=== PATIENT | female | born 1960 | race Caucasian/White ===

== ENCOUNTER → 2017-12-15 07:43 | Outpatient (CLI) | payer OTHER, SELFPAY ==
[2017-12-15 08:23] LABS: Absolute Lymphocyte Count 4.13 X10^3/ul (0.83-4.51); Basophil# 0.05 X10^3/uL; Basophil% 0.6 % (0-1); Eosinophil# 0.45 X10^3/uL; Eosinophils% 5.5 % (0-5); Hematocrit 37.5 % (37-47); Hemoglobin 11.9 g/dl (12.0-15.0); Lymphocyte # 4.13 X10^3/ul (4.0); Lymphocyte % 50.8 % (19-41); Mean Corp Hgb Conc 31.7 g/gl (32-36); Mean Corpuscular Hgb 27.9 pg (27.0-32.0); Mean Corpuscular Volume 87.8 fL (81-99); Mean Platelet Vol. 11.6 fl (6.2-12.0); Monocyte# 0.46 X10^3/uL; Monocyte% 5.7 % (0-10); Neutrophil # 3.03 X10^3/uL (2.7-7.7); Neutrophil % 37.3 % (47-70); Platelet Count 202 K/mm3 (150-450); RBC Distribution Width CV 14.7 % (11.6-14.6); RBC Distribution Width SD 47.1 fl (35.1-43.9); Red Blood Count 4.27 M/mm3 (4.2-5.4); White Blood Count 8.1 K/mm3 (4.4-11.0)
[2017-12-15 08:24] LABS: POSITIVE COUNT NO; POSITIVE DIFFERENTIAL NO; POSITIVE MORPHOLOGY NO
[2017-12-15 08:56] LABS: AST(SGOT) 17 U/L (15-37); Alanine Aminotransfer ALT/SGPT 20 U/L (13-56); Albumin, Serum 3.5 g/dL (3.2-5.0); Alkaline Phosphatase 98 U/L (45-117); Anion Gap 7 (5-15); BUN 21 mg/dL (7-18); BUN/Creat Ratio 22.4 RATIO (10-20); Calcium,Total 8.6 mg/dL (8.5-10.1); Chloride 108 mmol/L (98-107); Cholesterol 230 mg/dL (200); Creatinine, Serum 0.94 mg/dL (0.55-1.02); EST Glomerular Filtration Rate 65 mL/min (>60); Est Glom Filt Rate - Afr Amer 78 mL/min (>60); Globulin 3.6 g/dL (2.2-4.2); Glucose 87 mg/dL (74-106); High Density Lipoprotein 64 mg/dL; Protein, Total 7.1 g/dL (6.4-8.2); Sodium Level 142 mmol/L (136-145); Thyroid Stim Hormone (TSH) 3.35 uIU/mL (0.358-3.74); Triglycerides 79 mg/dL; Very Low Density Lipoprotein 16 mg/dL (5-40)
[2017-12-17 09:49] LABS: Vitamin D,25 Hydroxy 28.3 ng/mL (29.95-100.01)
== END ==
PROVIDERS: Family Provider Family Medicine; PCP Family Medicine; Visit Provider Family Medicine
DX: E55.9 Vitamin D deficiency, unspecified (principal); E03.8 Other specified hypothyroidism; I10 Essential (primary) hypertension; E78.5 Hyperlipidemia, unspecified
CPT/HCPCS: 36415; 80053; 80061; 82306; 84443; 85025

== ENCOUNTER → 2018-04-13 09:06 | Outpatient (CLI) | payer OTHER, SELFPAY ==
[2018-04-13 09:44] LABS: Absolute Lymphocyte Count 4.48 X10^3/ul (0.83-4.51); Basophil# 0.05 X10^3/uL; Basophil% 0.5 % (0-1); Eosinophil# 0.57 X10^3/uL; Hematocrit 39.1 % (37-47); Hemoglobin 12.4 g/dl (12.0-15.0); Lymphocyte # 4.48 X10^3/ul (4.0); Mean Corp Hgb Conc 31.7 g/gl (32-36); Mean Corpuscular Volume 88.3 fL (81-99); Mean Platelet Vol. 11.6 fl (6.2-12.0); Monocyte# 0.43 X10^3/uL; Monocyte% 4.5 % (0-10); Neutrophil % 41.9 % (47-70); POSITIVE COUNT NO; POSITIVE DIFFERENTIAL NO; POSITIVE MORPHOLOGY NO; Platelet Count 203 K/mm3 (150-450); RBC Distribution Width CV 14.6 % (11.6-14.6); RBC Distribution Width SD 47.1 fl (35.1-43.9); Red Blood Count 4.43 M/mm3 (4.2-5.4); White Blood Count 9.5 K/mm3 (4.4-11.0)
[2018-04-13 10:05] LABS: AST(SGOT) 13 U/L (15-37); Alanine Aminotransfer ALT/SGPT 18 U/L (13-56); Albumin, Serum 3.7 g/dL (3.2-5.0); Alkaline Phosphatase 98 U/L (45-117); Anion Gap 5 (5-15); BUN 17 mg/dL (7-18); BUN/Creat Ratio 18.2 RATIO (10-20); Calcium,Total 8.9 mg/dL (8.5-10.1); Chloride 111 mmol/L (98-107); Cholesterol 219 mg/dL (200); Creatinine, Serum 0.93 mg/dL (0.55-1.02); EST Glomerular Filtration Rate 65 mL/min (>60); Est Glom Filt Rate - Afr Amer 79 mL/min (>60); Globulin 3.7 g/dL (2.2-4.2); Glucose 84 mg/dL (74-106); High Density Lipoprotein 61 mg/dL; Potassium 4.4 mmol/L (3.5-5.1); Protein, Total 7.4 g/dL (6.4-8.2); Sodium Level 141 mmol/L (136-145); Thyroid Stim Hormone (TSH) 1.68 uIU/mL (0.358-3.74); Triglycerides 103 mg/dL; Very Low Density Lipoprotein 21 mg/dL (5-40)
[2018-04-15 09:29] LABS: Vitamin D,25 Hydroxy 26.5 ng/mL (29.95-100.01)
== END ==
PROVIDERS: Family Provider Family Medicine; PCP Family Medicine; Visit Provider Family Medicine
DX: E55.9 Vitamin D deficiency, unspecified (principal); E03.8 Other specified hypothyroidism; I10 Essential (primary) hypertension; E78.5 Hyperlipidemia, unspecified
CPT/HCPCS: 36415; 80053; 80061; 82306; 84443; 85025

== ENCOUNTER → 2018-04-17 10:00 | Outpatient (CLI) | payer OTHER, SELFPAY ==
[2018-04-22 12:07] LABS: Chlamydia By Nucleic Acid AMP Negative (Negative)
[2018-04-23 09:04] LABS: Gonococcus By Nucleic Acid AMP Negative (Negative); HPV Reflexed? NOT INDICATED
== END ==
PROVIDERS: Family Provider Family Medicine; PCP Family Medicine; Visit Provider Family Medicine
DX: Z12.4 Encounter for screening for malignant neoplasm of cervix (principal)
CPT/HCPCS: 87491; 87591; 88175; G0145

== ENCOUNTER → 2018-05-15 14:57 | Outpatient (CLI) | payer OTHER, SELFPAY | PROVIDERS: Family Provider Family Medicine; PCP Family Medicine; Visit Provider Family Medicine | DX: Z12.31 Encounter for screening mammogram for malignant neoplasm of breast (principal) | CPT/HCPCS: 77063; 77067 ==

== ENCOUNTER → 2018-07-10 10:43 | Outpatient (CLI) | payer OTHER, SELFPAY ==
--- NOTE | 2018-07-10 10:46 | RAD_ITS ---
STUDY: X-RAY - LEFT FOOT CLINICAL: Female, 57 years old. Left foot pain TECHNIQUE: 3 view(s) of the foot. Weight-bearing COMPARISON: None. FINDINGS: Normal talus, calcaneus, and tarsal bones. Normal visualized subtalar, talonavicular, calcaneocuboid, tarsal and tarsometatarsal articulations. Normal metatarsi. Normal metatarsophalangeal joint of the great toe. Normal tibial and fibular sesamoid bones. Normal interphalangeal joint of the great toe. Normal phalanges of the great toe. Normal second through fifth metatarsophalangeal joints. Normal interphalangeal joints and phalanges of the lesser toes. Soft tissue swelling dorsally RAD/Foot min 3 Views IMPRESSION: Soft tissue swelling without acute osseous findings Electronically Signed: Reyes Corbin DO at 11:11 EDT Tel , Service support ,
== END ==
PROVIDERS: Family Provider Family Medicine; PCP Family Medicine; Referring Provider Family Medicine; Visit Provider Family Medicine
DX: M79.672 Pain in left foot (principal)
CPT/HCPCS: 73630

== ENCOUNTER → 2018-08-03 07:35 | Outpatient (CLI) | payer OTHER, SELFPAY ==
[2018-08-03 09:04] LABS: Absolute Lymphocyte Count 4.12 X10^3/ul (0.83-4.51); Absolute Neutrophil Count 3.6 X10^3/uL (2.0-7.7); Basophil# 0.05 X10^3/uL; Basophil% 0.6 % (0-1); Eosinophil# 0.58 X10^3/uL; Eosinophils% 6.6 % (0-5); Hemoglobin 12.2 g/dl (12.0-15.0); Lymphocyte # 4.12 X10^3/ul (4.0); Lymphocyte % 46.7 % (19-41); Mean Corp Hgb Conc 31.3 g/gl (32-36); Mean Corpuscular Hgb 28.3 pg (27.0-32.0); Mean Corpuscular Volume 90.5 fL (81-99); Mean Platelet Vol. 11.4 fl (6.2-12.0); Monocyte# 0.51 X10^3/uL; Monocyte% 5.8 % (0-10); Neutrophil # 3.56 X10^3/uL (2.7-7.7); Neutrophil % 40.2 % (47-70); POSITIVE COUNT NO; POSITIVE DIFFERENTIAL NO; POSITIVE MORPHOLOGY NO; Platelet Count 198 K/mm3 (150-450); RBC Distribution Width CV 14.6 % (11.6-14.6); RBC Distribution Width SD 48.3 fl (35.1-43.9); Red Blood Count 4.31 M/mm3 (4.2-5.4); White Blood Count 8.8 K/mm3 (4.4-11.0)
[2018-08-03 09:42] LABS: Anion Gap 7 (5-15); BUN 21 mg/dL (7-18); BUN/Creat Ratio 26.8 RATIO (10-20); Chloride 111 mmol/L (98-107); Creatinine, Serum 0.78 mg/dL (0.55-1.02); EST Glomerular Filtration Rate 80 mL/min (>60); Est Glom Filt Rate - Afr Amer 96 mL/min (>60); Glucose 88 mg/dL (74-106); Potassium 4.3 mmol/L (3.5-5.1); Sodium Level 142 mmol/L (136-145); T4 Free Direct 0.88 ng/dL (0.76-1.46)
[2018-08-03 12:54] LABS: Vitamin D,25 Hydroxy 32.9 ng/mL (29.95-100.01)
== END ==
PROVIDERS: Family Provider Family Medicine; PCP Family Medicine; Referring Provider Family Medicine; Visit Provider Family Medicine
DX: I10 Essential (primary) hypertension (principal); E03.8 Other specified hypothyroidism; E55.9 Vitamin D deficiency, unspecified
CPT/HCPCS: 36415; 80048; 82306; 84439; 84443; 85025

== ENCOUNTER → 2020-03-12 10:16 | Outpatient (CLI) | payer MEDICARE, SELFPAY ==
[2020-03-12 09:26] VITALS: BMI 40.7
[2020-03-12 12:16] LABS: Absolute Lymphocyte Count 4.52 X10^3/uL (0.83-4.51); Absolute Neutrophil Count 4.1 X10^3/uL (2.0-7.7); Basophil# 0.09 X10^3/uL; Basophil% 0.9 % (0-1); Eosinophil# 0.58 X10^3/uL; Eosinophils% 5.8 % (0-5); Hematocrit 38.7 % (37-47); Lymphocyte # 4.52 X10^3/ul (4.0); Mean Corpuscular Hgb 28.4 pg (27.0-32.0); Mean Corpuscular Volume 91.7 fL (81-99); Mean Platelet Vol. 11.4 fl (6.2-12.0); Monocyte# 0.66 X10^3/uL; Monocyte% 6.6 % (0-10); NRBC Flagged by Analyzer 0.6 % (0-5); Neutrophil # 4.14 X10^3/uL (2.7-7.7); Neutrophil % 41.1 % (47-70); Platelet Count 237 K/mm3 (150-450); RBC Distribution Width CV 15.1 % (11.6-14.6); RBC Distribution Width SD 50.8 fl (35.1-43.9); Red Blood Count 4.22 M/mm3 (4.2-5.4); White Blood Count 10.1 K/mm3 (4.4-11.0)
[2020-03-12 13:01] LABS: ALB/GLOB Ratio 0.9 RATIO (0.9-2.4); AST(SGOT) 14 U/L (15-37); Alanine Aminotransfer ALT/SGPT 23 U/L (13-56); Albumin, Serum 3.6 g/dL (3.2-5.0); Alkaline Phosphatase 124 U/L (45-117); Anion Gap 7 (5-15); BUN 22 mg/dL (7-18); BUN/Creat Ratio 20.4 RATIO (10-20); Calcium,Total 9.7 mg/dL (8.5-10.1); Chloride 109 mmol/L (98-107); Cholesterol 266 mg/dL (200); Creatinine, Serum 1.08 mg/dL (0.55-1.02); EST Glomerular Filtration Rate 55 mL/min (>60); Est Glom Filt Rate - Afr Amer 66 mL/min (>60); Globulin 3.9 g/dL (2.2-4.2); Glucose 96 mg/dL (74-106); High Density Lipoprotein 61 mg/dL; Potassium 4.3 mmol/L (3.5-5.1); Protein, Total 7.5 g/dL (6.4-8.2); Sodium Level 142 mmol/L (136-145); Triglycerides 147 mg/dL; Very Low Density Lipoprotein 29 mg/dL (5-40)
[2020-03-12 14:00] LABS: Thyroid Stim Hormone (TSH) 1.69 uIU/mL (0.358-3.74)
== END ==
PROVIDERS: PCP Internal Medicine; Referring Provider Internal Medicine; Visit Provider Internal Medicine
DX: E03.9 Hypothyroidism, unspecified (principal); I10 Essential (primary) hypertension; E78.5 Hyperlipidemia, unspecified
CPT/HCPCS: 36415; 80053; 80061; 84443; 85025

== ENCOUNTER → 2020-04-26 07:32 | Outpatient (CLI) | payer MEDICARE, SELFPAY ==
[2020-03-12 09:26] VITALS: BMI 40.7
--- NOTE | 2020-04-26 07:33 | BI_ITS ---
MAMMOGRAPHY - BILATERAL SCREENING REASON FOR EXAM: Female, 59 years old. Routine annual screening examination. PERTINENT HISTORY: Non-contributory. TECHNIQUE: Digital bilateral breast gordo (3D mammographic acquisition) in the CC and MLO projections. 2-D mediolateral oblique (MLO) and craniocaudad (CC) views of both breasts were obtained. CAD: Full Field Digital Mammography with Computer Added Detection was performed. COMPARISON: Comparison is made with prior study dated 05/15/2018. FINDINGS: Breast Composition: There are scattered areas of fibroglandular density. There are no dominant masses or suspicious calcifications. Stable small benign appearing bilateral axillary lymph nodes. No other significant abnormalities are identified. There has been no significant change since the prior study. BI/SCREEN MAMM (CAD) W/GORDO BILAT IMPRESSION: Stable bilateral screening mammogram. Yearly follow-up mammogram recommended. (A) ASSESSMENT CATEGORY: BIRADS Category 2: Benign. A letter regarding these results will be sent to the patient by the facility within 30 days. Approximately 10% of breast cancers are not detected by mammography. A normal mammogram should not delay biopsy of a clinically suspicious abnormality. [id number] Electronically Signed: Harshad Goodson, at 8:58 EDT , Service support ,
== END ==
PROVIDERS: PCP Internal Medicine; Referring Provider Internal Medicine; Visit Provider Internal Medicine
DX: Z12.31 Encounter for screening mammogram for malignant neoplasm of breast (principal)
CPT/HCPCS: 77063; 77067

== ENCOUNTER → 2020-06-04 09:04 | Outpatient (CLI) | payer MEDICARE, SELFPAY ==
[2020-03-12 09:26] VITALS: BMI 40.7
[2020-06-04 13:30] LABS: AST(SGOT) 16 U/L (15-37); Alanine Aminotransfer ALT/SGPT 24 U/L (13-56); Albumin, Serum 3.7 g/dL (3.2-5.0); Alkaline Phosphatase 121 U/L (45-117); Anion Gap 4 (5-15); BUN 22 mg/dL (7-18); Calcium,Total 9.2 mg/dL (8.5-10.1); Chloride 110 mmol/L (98-107); EST Glomerular Filtration Rate 54 mL/min (>60); Est Glom Filt Rate - Afr Amer 65 mL/min (>60); Globulin 3.6 g/dL (2.2-4.2); Glucose 84 mg/dL (74-106); Potassium 4.7 mmol/L (3.5-5.1); Protein, Total 7.3 g/dL (6.4-8.2); Sodium Level 141 mmol/L (136-145)
== END ==
PROVIDERS: PCP Internal Medicine; Referring Provider Internal Medicine; Visit Provider Internal Medicine
DX: E78.5 Hyperlipidemia, unspecified (principal)
CPT/HCPCS: 36415; 80053

== ENCOUNTER → 2020-06-24 08:27 | Outpatient (CLI) | payer MEDICARE, SELFPAY ==
[2020-06-18 08:42] VITALS: BMI 40.7
--- NOTE | 2020-06-24 08:30 | BD_ITS ---
STUDY: DUAL ENERGY X-RAY ABSORPTIOMETRY / DXA REASON FOR EXAM: Female, 59 years old. Unsure of destini age. Pat is 283.6# and 67.5 and quot; a loss of 1.5 and quot; per pat. Past hx of smoking. Past hx of taking IV drips for MS. Takes levothyroxin. Grandmother had osteo. TECHNIQUE: Bone Mineral Density (BMD) measurements of lumbar spine and bilateral hips were obtained. COMPARISON: None. FINDINGS: Lumbar Spine (L1-L4): g/cm2 (1.119) / T-score (-0.5) / Z-score (0.8) Findings are suggestive of normal bone density with a low fracture risk. Left Femur Total: g/cm2 (0.920) / T-score (-0.7) / Z-score (0.3) Left Femoral Neck: g/cm2 (0.785) / T-score (-1.8) / Z-score (-0.5) Right Femur Total: g/cm2 (0.898) / T-score (-0.9) / Z-score (0.1) Right Femoral Neck: g/cm2 (0.776) / T-score (-1.9) / Z-score (0.6) BD/Dexa Bone Density Study IMPRESSION: The patient is considered osteopenic as outlined below according to World Pato Organization (WHO) criteria with a moderate fracture risk. Reference Information: The T-score is the number of standard deviations above or below the standard which is normal for young adults at their peak bone mineral density. The World Health Organization (WHO) interprets the T-scores as follows: Above -1 Normal bone density Between -1 and -2.5 Osteopenia Equal to / or below -2.5 Osteoporosis As a practical clinical guideline, osteopenia may be graded as follows: Mild -1 through -1.5 Moderate -1.6 through -2.0 Severe -2.1 through -2.4 The Z-score is the number of standard deviations above or below age-matched controls. A Z-score of less than -1.5 would be considered abnormal. References: 1. NIH Osteoporosis and Related Bone Diseases http://www.osteo.org 2. International Society for Clinical Densitometry http://www.iscd.org 3. National Osteoporosis Foundation http://www.nof.org Electronically Signed: Harshad Goodson, at 11:05 EDT , Service support ,
== END ==
PROVIDERS: PCP Internal Medicine; Referring Provider Internal Medicine; Visit Provider Internal Medicine
DX: Z78.0 Asymptomatic menopausal state (principal)
CPT/HCPCS: 77080

== ENCOUNTER → 2020-09-20 10:14 | Outpatient (CLI) | payer MEDICARE, SELFPAY ==
[2020-09-20 12:33] LABS: AST(SGOT) 16 U/L (15-37); Alanine Aminotransfer ALT/SGPT 28 U/L (13-56); Albumin, Serum 3.6 g/dL (3.2-5.0); Alkaline Phosphatase 126 U/L (45-117); Anion Gap 5 (5-15); BUN 20 mg/dL (7-18); BUN/Creat Ratio 18.3 RATIO (10-20); Calcium,Total 9.2 mg/dL (8.5-10.1); Chloride 111 mmol/L (98-107); Creatinine, Serum 1.09 mg/dL (0.55-1.02); EST Glomerular Filtration Rate 54 mL/min (>60); Est Glom Filt Rate - Afr Amer 65 mL/min (>60); Globulin 3.7 g/dL (2.2-4.2); Glucose 90 mg/dL (74-106); Potassium 3.9 mmol/L (3.5-5.1); Protein, Total 7.3 g/dL (6.4-8.2); Sodium Level 141 mmol/L (136-145)
== END ==
PROVIDERS: PCP Internal Medicine; Referring Provider Internal Medicine; Visit Provider Internal Medicine
DX: E78.5 Hyperlipidemia, unspecified (principal)
CPT/HCPCS: 36415; 80053

== ENCOUNTER 2020-12-03 08:12 | Outpatient (RCR) | payer MEDICARE, SELFPAY ==
[2020-12-03] MEDS: COVID-19 VACC, MRNA(PFIZER)/PF 30 MCG/0.3 ML SYRINGE IM (13:13)
[2020-12-24] MEDS: COVID-19 VACC, MRNA(PFIZER)/PF 30 MCG/0.3 ML SYRINGE IM (13:12)
== END 2021-03-01 23:59 ==
LOC: IMMUN 08:12
PROVIDERS: PCP Internal Medicine; Visit Provider Family Medicine
DX: Z23 Encounter for immunization (principal)
CPT/HCPCS: 0001A; 0002A; 91300

== ENCOUNTER → 2021-02-02 13:39 | Outpatient (CLI) | payer MEDICARE, SELFPAY ==
[2020-12-20 08:29] VITALS: BMI 45.8
[2021-02-02 15:19] LABS: Absolute Lymphocyte Count 2.34 X10^3/uL (0.83-4.51); Absolute Neutrophil Count 3.9 X10^3/uL (2.0-7.7); Basophil# 0.07 X10^3/uL; Eosinophils% 4.2 % (0-5); Hematocrit 40.2 % (37-47); Lymphocyte # 2.34 X10^3/ul (0.83-4.51); Mean Corp Hgb Conc 29.9 g/dL (32-36); Mean Corpuscular Volume 90.5 fL (81-99); Mean Platelet Vol. 11.9 fl (6.2-12.0); Monocyte# 0.48 X10^3/uL; Monocyte% 6.8 % (0-10); NRBC Flagged by Analyzer 0 % (0-5); Neutrophil # 3.89 X10^3/uL (2.7-7.7); Neutrophil % 54.7 % (47-70); Platelet Count 215 K/mm3 (150-450); RBC Distribution Width CV 15.9 % (11.6-14.6); RBC Distribution Width SD 52.2 fl (35.1-43.9); Red Blood Count 4.44 M/mm3 (4.2-5.4); White Blood Count 7.1 K/mm3 (4.4-11.0)
[2021-02-02 15:42] LABS: ALB/GLOB Ratio 1.1 RATIO (0.9-2.4); AST(SGOT) 16 U/L (15-37); Alanine Aminotransfer ALT/SGPT 27 U/L (13-56); Alkaline Phosphatase 101 U/L (45-117); Anion Gap 3 (5-15); BUN 29 mg/dL (7-18); BUN/Creat Ratio 21.8 RATIO (10-20); Calcium,Total 9.4 mg/dL (8.5-10.1); Chloride 106 mmol/L (98-107); Creatinine, Serum 1.33 mg/dL (0.55-1.02); EST Glomerular Filtration Rate 43 mL/min (>60); Est Glom Filt Rate - Afr Amer 52 mL/min (>60); Globulin 3.8 g/dL (2.2-4.2); Glucose 90 mg/dL (74-106); Potassium 4.4 mmol/L (3.5-5.1); Protein, Total 7.8 g/dL (6.4-8.2); Sodium Level 138 mmol/L (136-145)
== END ==
PROVIDERS: PCP Internal Medicine
DX: Z79.899 Other long term (current) drug therapy (principal)
CPT/HCPCS: 36415; 80053; 85025

== ENCOUNTER → 2021-03-21 10:28 | Outpatient (CLI) | payer MEDICARE, SELFPAY ==
[2021-03-21 10:01] VITALS: BMI 45.8
[2021-03-21 12:21] LABS: Cholesterol 199 mg/dL (200); High Density Lipoprotein 74 mg/dL; Triglycerides 100 mg/dL; Very Low Density Lipoprotein 20 mg/dL (5-40)
== END ==
PROVIDERS: PCP Internal Medicine; Referring Provider Physician Assistant; Visit Provider Physician Assistant
DX: D64.9 Anemia, unspecified (principal); E78.5 Hyperlipidemia, unspecified; E03.9 Hypothyroidism, unspecified; E66.01 Morbid (severe) obesity due to excess calories; Z68.42 Body mass index [BMI] 45.0-49.9, adult
CPT/HCPCS: 36415; 80061; 84443

== ENCOUNTER → 2021-06-15 16:14 | Outpatient (CLI) | payer MEDICARE, SELFPAY ==
[2021-06-15 18:02] LABS: Thyroid Stim Hormone (TSH) 7.03 uIU/mL (0.358-3.74)
== END ==
PROVIDERS: PCP Internal Medicine; Referring Provider Physician Assistant; Visit Provider Physician Assistant
DX: E03.9 Hypothyroidism, unspecified (principal)
CPT/HCPCS: 36415; 84443

== ENCOUNTER → 2021-09-09 11:52 | Outpatient (CLI) | payer MEDICARE, SELFPAY ==
[2021-09-09 15:38] LABS: Anion Gap 5 (5-15); BUN 22 mg/dL (7-18); BUN/Creat Ratio 20.8 RATIO (10-20); Calcium,Total 8.8 mg/dL (8.5-10.1); Chloride 111 mmol/L (98-107); Creatinine, Serum 1.06 mg/dL (0.55-1.02); EST Glomerular Filtration Rate 56 mL/min (>60); Est Glom Filt Rate - Afr Amer 67 mL/min (>60); Glucose 97 mg/dL (74-106); Sodium Level 140 mmol/L (136-145)
[2021-09-09 15:54] LABS: Thyroid Stim Hormone (TSH) 3.66 uIU/mL (0.358-3.74)
== END ==
PROVIDERS: Physician Assistant; PCP Internal Medicine; Visit Provider Internal Medicine
DX: E03.9 Hypothyroidism, unspecified (principal); N18.30 Chronic kidney disease, stage 3 unspecified
CPT/HCPCS: 36415; 80048; 84443

== ENCOUNTER 2021-12-19 08:29 | Outpatient (CLI) | payer MEDICARE, SELFPAY ==
[2021-12-19 12:12] LABS: Absolute Lymphocyte Count 0.68 X10^3/uL (0.83-4.51); Absolute Neutrophil Count 2.5 X10^3/uL (2.0-7.7); Basophil# 0.03 X10^3/uL; Basophil% 0.8 % (0-1); Eosinophil# 0.23 X10^3/uL; Eosinophils% 6.1 % (0-5); Hematocrit 35.8 % (37-47); Hemoglobin 11.2 g/dL (12.0-15.0); Lymphocyte # 0.68 X10^3/ul (0.83-4.51); Mean Corp Hgb Conc 31.3 g/dL (32-36); Mean Corpuscular Volume 92.7 fL (81-99); Mean Platelet Vol. 11.6 fl (6.2-12.0); Monocyte# 0.35 X10^3/uL; Monocyte% 9.3 % (0-10); NRBC Flagged by Analyzer 0 % (0-5); Neutrophil # 2.48 X10^3/uL (2.7-7.7); Neutrophil % 65.5 % (47-70); Platelet Count 175 K/mm3 (150-450); RBC Distribution Width CV 14.2 % (11.6-14.6); RBC Distribution Width SD 47.4 fl (35.1-43.9); Red Blood Count 3.86 M/mm3 (4.2-5.4); White Blood Count 3.8 K/mm3 (4.4-11.0)
[2021-12-19 12:46] LABS: Vitamin D,25 Hydroxy 25.6 ng/mL
[2021-12-19 12:56] LABS: AST(SGOT) 16 U/L (15-37); Alanine Aminotransfer ALT/SGPT 25 U/L (13-56); Albumin, Serum 3.7 g/dL (3.2-5.0); Alkaline Phosphatase 91 U/L (45-117); Anion Gap 6 (5-15); BUN 25 mg/dL (7-18); BUN/Creat Ratio 21.2 RATIO (10-20); Calcium,Total 9.2 mg/dL (8.5-10.1); Chloride 106 mmol/L (98-107); Creatinine, Serum 1.18 mg/dL (0.55-1.02); EST Glomerular Filtration Rate 49 mL/min (>60); Est Glom Filt Rate - Afr Amer 59 mL/min (>60); Globulin 3.6 g/dL (2.2-4.2); Glucose 85 mg/dL (74-106); Potassium 4.1 mmol/L (3.5-5.1); Protein, Total 7.3 g/dL (6.4-8.2); Sodium Level 140 mmol/L (136-145); Thyroid Stim Hormone (TSH) 4.33 uIU/mL (0.358-3.74)
== END 2021-12-19 23:59 | disposition home or self-care (01) ==
LOC: BIMLAB 08:30
PROVIDERS: PCP Internal Medicine; Referring Provider Internal Medicine; Visit Provider Internal Medicine
DX: Z79.899 Other long term (current) drug therapy (principal)
CPT/HCPCS: 36415; 80053; 82306; 84443; 85025

== ENCOUNTER 2021-12-23 12:54 | Outpatient (CLI) | payer MEDICARE, SELFPAY ==
--- NOTE | 2021-12-23 12:56 | BI_ITS ---
MAMMOGRAPHY - BILATERAL SCREENING REASON FOR EXAM: Female, 61 years old. Routine annual screening examination. PERTINENT HISTORY: Non-contributory. TECHNIQUE: Digital bilateral breast gordo (3D mammographic acquisition) in the CC and MLO projections. 2-D mediolateral oblique (MLO) and craniocaudad (CC) views of both breasts were obtained. CAD: Full Field Digital Mammography with Computer Added Detection was performed. COMPARISON: Comparison is made with prior examination dated 04/26/2020 and 05/15/2018. FINDINGS: Breast Composition: There are scattered areas of fibroglandular density. There are no dominant masses or suspicious calcifications. No other significant abnormalities are identified. There has been no significant change since the prior study. BI/SCRN MAMM (CAD)W/GORDO BILAT IMPRESSION: Stable bilateral screening mammogram. Yearly follow-up mammogram recommended. (A) ASSESSMENT CATEGORY: BIRADS Category 1: Negative. A letter regarding these results will be sent to the patient by the facility within 30 days. Approximately 10% of breast cancers are not detected by mammography. A normal mammogram should not delay biopsy of a clinically suspicious abnormality. [id number] Electronically Signed: Harshad Goodson MD at 13:57 EDT ,
== END 2021-12-23 23:59 | disposition home or self-care (01) ==
LOC: OPBI 12:55
PROVIDERS: PCP Internal Medicine; Visit Provider Internal Medicine
DX: Z12.31 Encounter for screening mammogram for malignant neoplasm of breast (principal)
CPT/HCPCS: 77063; 77067

== ENCOUNTER 2022-01-03 09:59 | Outpatient (CLI) | payer MEDICARE, SELFPAY ==
--- NOTE | 2022-01-03 10:06 | MRI_ITS ---
EXAM: MR HEAD WITHOUT AND WITH INTRAVENOUS CONTRAST : 1960 CLINICAL INDICATION: MS- follow-up, comps provided TECHNIQUE: Multiplanar and multisequence MR images of the brain were obtained without and with intravenous contrast. This report was created using [employer] report generation technology. CONTRAST: IV Yes YES COMPARISON: March 14, 2016 FINDINGS: BRAIN AND EXTRA-AXIAL SPACES: Abnormal T2 signal intensity within the periventricular white matter again noted not significantly changed from prior exam when taking into account differences in technique. No abnormal contrast enhancement. No intra- or extra-axial hemorrhage. No evidence of acute infarct. No intracranial mass or mass effect. There is preservation of the mcfadden/white matter interface. Posterior fossa structures are unremarkable. No hydrocephalus. Basal cisterns are patent. SELLA: Unremarkable. Normal sella turcica, pituitary gland, infundibular stalk, optic chiasm and hypothalamus. AUDITORY SYSTEM: Unremarkable. The internal auditory canals are patent. BONES/JOINTS: Unremarkable. No discrete lytic or blastic abnormalities. SINUSES: Unremarkable as visualized. Clear. MASTOID AIR CELLS: Unremarkable as visualized. Clear. ORBITS: Unremarkable as visualized. Both globes, extraocular muscles, optic nerves and retrobulbar fat appear unremarkable. VASCULATURE: Unremarkable as visualized. Normal flow voids in the major intracranial circulation. MRI/Brain W/WO Contrast IMPRESSION: Stable white matter changes consistent with history of multiple sclerosis. No new lesions identified. at 1621 Reported and signed by: Reynaldo Stanley MD Electronically Signed: Reynaldo Stanley MD at 16:20 EDT ,
--- NOTE | 2022-01-03 10:06 | MRI_ITS ---
History: MS- follow-up, comps provided Technique: T1 and T2 MR imaging of the cervical spine performed with and without contrast enhancement in axial and sagittal planes. Undefined Findings: Alignment of the cervical vertebral bodies is normal. No bone marrow edema. The cervical cord is normal. No abnormal contrast enhancement. Paraspinal soft tissues are normal. C2-3: No disc protrusion. Normal caliber spinal canal and neural foramina. C3-4: No disc protrusion. Normal caliber spinal canal and neural foramina. C4-5: No disc protrusion. Normal caliber spinal canal and neural foramina. C5-6: No disc protrusion. Hypertrophy of the left uncinate joint results in mild narrowing of the left neural foramen. C6-7: No disc protrusion. Normal caliber spinal canal and neural foramina. C7-T1: No disc protrusion. Normal caliber spinal canal and neural foramina. MRI/Spine Cervical W/WO Contrast IMPRESSION: No discrete cervical cord lesion. Mild narrowing of the left C5-6 neural foramen related to uncinate joint hypertrophy. at 1648 Reported and signed by: Reynaldo Stanley MD Electronically Signed: Reynaldo Stanley MD at 16:47 EDT ,
== END 2022-01-03 23:59 | disposition home or self-care (01) ==
LOC: MRI 10:00
PROVIDERS: PCP Internal Medicine; Referring Provider Internal Medicine; Visit Provider Internal Medicine
DX: G35 Multiple sclerosis (principal)
CPT/HCPCS: 70553; 72156; A9575; A4216

== ENCOUNTER 2022-01-09 13:04 | Outpatient (CLI) | payer MEDICARE, SELFPAY ==
[2022-01-09 15:38] LABS: Thyroid Stim Hormone (TSH) 2.54 uIU/mL (0.358-3.74)
[2022-01-11 21:07] LABS: HEPATITIS B SURFACE AG Negative (Negative); Hepatitis A IgM Antibody Negative (Negative); Hepatitis B Core AB IgM Negative (Negative); Immunoglobulin A 183 mg/dL (87-352); Immunoglobulin G 862 mg/dL (586-1602); QNTFERON TB Mitogen Value 1.61 IU/mL (.); QNTFERON TB Nil Value 0.03 IU/mL (.); QNTFERON TB1+ Ag Value 0.02 IU/mL (.); QNTFERON TB2+ Ag Value 0.03 IU/mL (.)
[2022-01-11 21:16] LABS: Hep C Antibodies 0.2 s/co ratio (0.0-0.9); Immunoglobulin M 48 mg/dL (26-217)
[2022-01-11 21:17] LABS: QNTIFERON TB Positive Criteria Negative (Negative)
== END 2022-01-09 23:59 | disposition home or self-care (01) ==
LOC: BIMLAB 13:05
PROVIDERS: PCP Internal Medicine; Referring Provider Nurse Practitioner Gerontology; Visit Provider Nurse Practitioner Gerontology
DX: R53.82 Chronic fatigue, unspecified (principal); Z79.899 Other long term (current) drug therapy
CPT/HCPCS: 36415; 80074; 82784; 84443; 86480

== ENCOUNTER 2022-02-09 11:33 | Emergency (ER) | payer MEDICARE, SELFPAY ==
[2022-02-09 11:34] VITALS: BP 132/88; PULSE 78; RESP 15; TEMP 36; O2SAT 100; BMI 40.6
[2022-02-09 11:53] VITALS: BMI 40.6
--- NOTE | 2022-02-09 11:58 | EKG12_ITS ---
Test Reason : NERUO Blood Pressure : / mmHG Vent. Rate : 061 BPM Atrial Rate : 061 BPM P-R Int : 150 ms QRS Dur : 092 ms QT Int : 428 ms P-R-T Axes : 042 -26 036 degrees QTc Int : 430 ms Normal sinus rhythm Left ventricular hypertrophy with repolarization abnormality Abnormal ECG Confirmed by ADELAIDA VAZQUEZ, CLIVE ([id number]), copy editor KIN HOWELL ([id number]) on 02/13/2022 9:50:32 AM Referred By: MARTIN Confirmed By:JUN SON MD
--- NOTE | 2022-02-09 11:58 | CT_ITS ---
STUDY: CT BRAIN WITHOUT CONTRAST REASON FOR EXAM: Female, 61 years old. Possible CVA last night. Right-sided weakness. Symptoms resolved. History of multiple sclerosis. RADIATION DOSAGE (If Supplied By Facility): CTDIvol = ( 44.99 ) mGy, DLP = ( 812.98 ) mGycm TECHNIQUE: Transaxial CT imaging of the brain was performed without administration of intravenous contrast material. Individualized dose optimization techniques were used for this CT. COMPARISON: No relevant priors. FINDINGS: Normal soft tissue structures. Normal calvarium. There is mild cerebral atrophy with widening of the extra-axial spaces and ventricular dilatation. Scattered focal areas of decreased attenuation in the deep white matter in the periventricular distribution. This corresponds to the findings on the recent MRI scan of the brain suggestive of a multiple sclerosis. Normal basal ganglia and thalami. Normal brainstem. Normal cerebellum. There is no intracranial hemorrhage. There are no findings of an acute ischemic infarction. Normal visualized paranasal sinuses. CT/Brain/Head without Contrast IMPRESSION: Chronic involutional changes of the brain. Electronically Signed: Harshad Goodson MD at 12:36 EDT ,
--- NOTE | 2022-02-09 11:59 | EX.ED.DYSGE1 ---
HPI <HERIBERTO Cummins - Last Filed: 02/09/22 12:57> History of Present Illness Chief Complaint: Neuro S/Sx Narrative Narrative: 61-year-old female with history of multiple sclerosis, hypertension, chronic pain disease presents to the emergency department with concern of CVA/TIA. Patient states that approximate 6:30 PM last evening, she had difficulty speaking, her states she had right facial droop, patient also states that she had difficulty performing specific tasks to her right hand. The patient did contemplate coming in last evening however chose to see if it would go away. Patient woke up this morning, patient's speech and facial droop was resolved, patient states to have improvement of her right hand. Patient was unsure if this is from her MS or if this is an acute stroke. Patient is here for evaluation [facility] <HERIBERTO Cummins - Last Filed: 02/09/22 12:57> [facility] Medical History (Updated 02/09/22 @ 12:56 by HERIBERTO Cummins) Anemia Flu vaccine need Health care maintenance Hyperlipemia Hypertension Hypothyroidism Multiple sclerosis Seasonal allergies Skin cancer Home Medications diroximel fumarate 231 mg capsule,delayed release 462 mg PO BID cap 12/20/20 [History Last Taken Unknown] atorvastatin 10 mg tablet 10 mg PO QHS #90 tab 06/13/21 [Rx Last Taken Unknown] calcium carbonate 600 mg-vitamin D3 20 mcg (800 unit) chewable tablet 1 tab PO BID 06/20/21 [History Last Taken Unknown] levothyroxine 88 mcg tablet 88 mcg PO DAILY #90 tab 09/20/21 [Rx Last Taken Unknown] escitalopram oxalate 10 mg tablet 10 mg PO DAILY #90 tab 01/05/22 [Rx Last Taken Unknown] lisinopril 40 mg tablet 40 mg PO DAILY #90 tab 01/05/22 [Rx Last Taken Unknown] Allergy/AdvReac Type Severity Reaction Status Date / Time No Known Allergies Allergy Verified 02/09/22 11:38 Family History Father Arthritis Heart disease Mother Hypertension Hyperlipemia Kidney disease Surgical History History of appendectomy History of hysterectomy Social History Smoking Status: Never smoker Tobacco: How many years used: 20 alcohol intake: current alcohol intake frequency: holidays/special occasions only substance use type: does not use what type of physical activity do you participate in: none ROS <HERIBERTO Cummins - Last Filed: 02/09/22 12:57> ROS ED ROS Narrative Constitutional: Negative for fever, chills, weight loss, weakness Eyes: Negative for vision loss, vision change, double vision ENT: Negative for any sore throat, ear pain, congestion Cardiovascular: Negative for any chest pain, tightness, palpitations, racing heartbeat Respiratory: Negative for any cough, sputum production, hemoptysis, shortness of breath, shortness of breath on exertion, orthopnea Gastrointestinal: Negative for any abdominal pain, nausea, vomiting, diarrhea, constipation, blood in stool, blood in vomit : Negative for any urinary frequency, incontinence, dysuria, retention, blood in urine Muscle skeletal: Negative for any muscle joint pain, stiffness, myalgias, arthralgias, neck pain, back pain Neurological: Negative for any headache, dizziness, syncope, numbness or tingling. Positive for facial droop, difficulty speaking, right hand weakness Skin: Negative for any rashes, lumps, itching, abrasions, lacerations Psychiatric: Negative for any depression, anxiety, stress, suicidal ideation, homicidal ideation Hematologic: Negative for any easy bruising, excessive bruising, easy bleeding Allergies: Negative for any eczema, hives, rash EXAM <HERIBERTO Cummins - Last Filed: 02/09/22 12:57> Physical Exam Narrative Exam Narrative: Vital signs reviewed. Patient is alert and oriented x4, patient is acting appropriate, patient is having no symptoms at this time HEET: Head normocephalic atraumatic, TMs clear bilaterally. Posterior pharynx is clear, moist mucous membranes. Nares clear bilaterally. Neck: Supple with no lymphadenopathy or tenderness. No signs of meningismus, negative jolt sign. Cardiac: Regular rate and rhythm no murmurs gallops or rubs, equal peripheral pulses bilaterally. Respiratory: Lungs clear to auscultation bilaterally. No chest tenderness. Abdomen: Soft, nontender, nondistended. No abdominal bruit or pulsatile masses. No hepatosplenomegaly Extremities: No peripheral edema, no signs of gross trauma or deformity. Active full range of motion of all extremities. Neuro: Cranial nerves II through XII intact, no focal neurological deficits. Hand grasp equal, patient's NIH score 0. Skin: Clean dry and intact with no rash, purpura, petechiae, vesicles or pustules. Backslash flank: No CVA tenderness, no midline spinal tenderness, no deformity. Psych: Normal mood and affect. No SI, HI or acute psychosis. Const Vital Signs: 02/09/22 11:34 Temperature 96.8 F L Temperature Source Temporal Pulse Rate 78 Respiratory Rate 15 Blood Pressure 132/88 H Blood Pressure Mean 102 Pulse Ox 100 Oxygen Delivery Method Room Air <Dr. Rufino Jim DO - Last Filed: 02/09/22 13:30> Physical Exam Const Vital Signs: 02/09/22 11:34 Temperature 96.8 F L Temperature Source Temporal Pulse Rate 78 Respiratory Rate 15 Blood Pressure 132/88 H Blood Pressure Mean 102 Pulse Ox 100 Oxygen Delivery Method Room Air MDM <HERIBERTO Cummins - Last Filed: 02/09/22 12:57> [facility] Narrative Medical decision making narrative: Patient appears well, patient appears nontoxic, vital signs are stable. Patient presents to the emergency department for concern for slurred speech, right facial droop, right hand weakness that occurred last evening. Patient did receive a full CVA/TIA work-up. Patient is laboratory values are unchanged from previous, she is at her baseline. EKG was unremarkable, patient NIH score on initial assessment was 0 here. On reassessment, it is still 0 she feels much better. CT scan of the brain was unremarkable for any acute process. At this time, this could be secondary to her MS however we used shared decision-making, patient like to go home and follow-up outpatient. Patient was given strict return precautions to return for any other signs of weakness, slurred speech, other neurological symptoms. Patient is agreeable with the plan and is stable for discharge. Lab Data Labs: Laboratory Results - last 24 hr 02/09/22 02/09/22 02/09/22 11:50 11:50 12:25 WBC 4.3 L RBC 3.97 L Hgb 11.4 L Hct 36.5 L MCV 91.9 MCH 28.7 MCHC 31.2 L RDW Std Deviation 47.7 H RDW Coeff of Raeann 14.1 Plt Count 179 MPV 10.9 Immature Gran % (Auto) 0.500 Neut % (Auto) 65.0 Lymph % (Auto) 16.7 L Geary % (Auto) 10.9 H Eos % (Auto) 6.0 H Baso % (Auto) 0.9 Absolute Neuts (auto) 2.8 Absolute Lymphs (auto) 0.72 L Nucleated RBC % 0 Sodium 142 Potassium 3.8 Chloride 108 H Carbon Dioxide 28.0 Anion Gap 6 BUN 23 H Creatinine 1.17 H Estim Creat Clear Calc 51.43 Est GFR (MDRD) Af Amer 60 Est GFR (MDRD) Non-Af 50 L BUN/Creatinine Ratio 19.7 Glucose 94 Calcium 9.6 Urine Color Yellow Urine Clarity Clear Urine pH 6.5 Ur Specific [place] 1.005 Urine Protein Negative Urine Glucose (UA) Normal Urine Ketones Negative Urine Occult Blood Negative Urine Nitrite Negative Urine Bilirubin Negative Urine Urobilinogen Normal Ur Leukocyte Esterase Negative Radiography Diagnostic Testing: Clinical Impression(s) from Imaging Studies Brain CT 02/09/22 11:58 IMPRESSION: Chronic involutional changes of the brain. Electronically Signed: Harshad Goodson MD at 12:36 EDT , EKG Normal sinus rhythm: Attestation: I personally reviewed and interpreted this EKG as follows: Comments: Normal sinus rhythm, rate of 61 bpm HI 150 ms, QRS duration 92 ms, no acute ST elevation, no acute infarct noted. <Dr. Rufino Jim, DO - Last Filed: 02/09/22 13:30> [facility] Narrative Medical decision making narrative: I have personally performed a face to face assessment of the patient and have reviewed the DERRICK Note. I performed a substantive portion of the visit including all aspects of the following. My webster findings include: History: Patient presents with slurred speech that began last night. Patient states she is also having some difficulty moving her right hand last night. Patient states her symptoms are improved but she still has some mild slurring of her speech. Patient is concerned that this could have been a stroke. Patient has a history of multiple sclerosis. Patient states her multiple sclerosis usually affects her left side but not her right. Patient denies any headaches. Patient denies any visual changes. Patient denies any other neurologic symptoms. Exam: Vital signs are stable. Patient is afebrile. Patient is in no acute distress. Cranial nerves II through XII are intact. There are no focal motor or sensory deficits noted. Strength is 5/5 bilaterally in the upper and lower extremities. There are no sensory deficits noted. Heart was regular rate and rhythm. Lungs are clear and equal bilaterally. Abdomen is soft and nontender. Medical Decison Making: CT scan of the brain was obtained. There is no acute intracranial abnormality. This was interpreted by the radiologist and reviewed by myself. CBC was essentially within normal limits. Basic metabolic profile was within normal limits. Urinalysis does not show any evidence of urinary tract infection. Patient was advised of her findings. Patient was advised that this may likely be a flareup of her multiple sclerosis or possibly a TIA. It does not appear to be acute stroke at this time especially since her symptoms are improved. Patient was instructed to follow-up with her primary care physician in 3 to 5 days for reevaluation. Patient was instructed return if worse in any way. Patient understood and was agreeable with the plan. All questions were answered. Lab Data Labs: Laboratory Results - last 24 hr 02/09/22 02/09/22 02/09/22 11:50 11:50 12:25 WBC 4.3 L RBC 3.97 L Hgb 11.4 L Hct 36.5 L MCV 91.9 MCH 28.7 MCHC 31.2 L RDW Std Deviation 47.7 H RDW Coeff of Raeann 14.1 Plt Count 179 MPV 10.9 Immature Gran % (Auto) 0.500 Neut % (Auto) 65.0 Lymph % (Auto) 16.7 L Geary % (Auto) 10.9 H Eos % (Auto) 6.0 H Baso % (Auto) 0.9 Absolute Neuts (auto) 2.8 Absolute Lymphs (auto) 0.72 L Nucleated RBC % 0 Sodium 142 Potassium 3.8 Chloride 108 H Carbon Dioxide 28.0 Anion Gap 6 BUN 23 H Creatinine 1.17 H Estim Creat Clear Calc 51.43 Est GFR (MDRD) Af Amer 60 Est GFR (MDRD) Non-Af 50 L BUN/Creatinine Ratio 19.7 Glucose 94 Calcium 9.6 Urine Color Yellow Urine Clarity Clear Urine pH 6.5 Ur Specific [place] 1.005 Urine Protein Negative Urine Glucose (UA) Normal Urine Ketones Negative Urine Occult Blood Negative Urine Nitrite Negative Urine Bilirubin Negative Urine Urobilinogen Normal Ur Leukocyte Esterase Negative Radiography Diagnostic Testing: Clinical Impression(s) from Imaging Studies Brain CT 02/09/22 11:58 IMPRESSION: Chronic involutional changes of the brain. Electronically Signed: Harshad Goodson MD at 12:36 EDT , Discharge Plan Triage Chief Complaint: Neuro S/Sx ED Midlevel Provider: Mirza Burton ED Provider: Rufino Jim Dx/Rx/DC Orders Clinical Impression: Multiple sclerosis, Brain TIA Instructions: Multiple Sclerosis, ED TIA: Transient Ischemic Attack Prescriptions: No Action Vumerity 231 mg capsule,delayed release(DR/EC) 462 mg PO BID RF: 0 Caltrate 600 plus D 600 mg (1,500 mg)-800 unit tablet,chewable 1 tab PO BID RF: 0 atorvastatin [Lipitor] 10 mg tablet 10 mg PO QHS Qty: 90 RF: 3 levothyroxine 88 mcg tablet 88 mcg PO DAILY Qty: 90 RF: 1 lisinopril 40 mg tablet 40 mg PO DAILY Qty: 90 RF: 3 escitalopram oxalate [Lexapro] 10 mg tablet 10 mg PO DAILY Qty: 90 RF: 1 Primary Care Provider: Xiomy Duran Referrals: Xiomy Duran MD [Primary Care Provider] - Activity Restrictions/Additional Instructions: You will return for any other weakness, difficulty speaking. This could be from your multiple sclerosis however could be another TIA. Please follow-up outpatient however, here for any other acute issue Print Language: Croatian Disposition Disposition: Home, Self Care Discharge Date/Time: 02/09/22 13:05
[2022-02-09 12:11] LABS: Absolute Lymphocyte Count 0.72 X10^3/uL (0.83-4.51); Absolute Neutrophil Count 2.8 X10^3/uL (2.0-7.7); Basophil# 0.04 X10^3/uL; Basophil% 0.9 % (0-1); Eosinophil# 0.26 X10^3/uL; Hematocrit 36.5 % (37-47); Hemoglobin 11.4 g/dL (12.0-15.0); Lymphocyte # 0.72 X10^3/ul (0.83-4.51); Lymphocyte % 16.7 % (19-41); Mean Corp Hgb Conc 31.2 g/dL (32-36); Mean Corpuscular Hgb 28.7 pg (27.0-32.0); Mean Corpuscular Volume 91.9 fL (81-99); Mean Platelet Vol. 10.9 fl (6.2-12.0); Monocyte# 0.47 X10^3/uL; Monocyte% 10.9 % (0-10); NRBC Flagged by Analyzer 0 % (0-5); Platelet Count 179 K/mm3 (150-450); RBC Distribution Width CV 14.1 % (11.6-14.6); RBC Distribution Width SD 47.7 fl (35.1-43.9); Red Blood Count 3.97 M/mm3 (4.2-5.4); White Blood Count 4.3 K/mm3 (4.4-11.0)
[2022-02-09 12:21] LABS: Anion Gap 6 (5-15); BUN 23 mg/dL (7-18); BUN/Creat Ratio 19.7 RATIO (10-20); Calcium,Total 9.6 mg/dL (8.5-10.1); Chloride 108 mmol/L (98-107); Creatinine, Serum 1.17 mg/dL (0.55-1.02); EST Glomerular Filtration Rate 50 mL/min (>60); Est Glom Filt Rate - Afr Amer 60 mL/min (>60); Estimated Creatinine Clearance 51.43 ml/min; Glucose 94 mg/dL (74-106); Potassium 3.8 mmol/L (3.5-5.1); Sodium Level 142 mmol/L (136-145)
[2022-02-09 12:38] LABS: Bacteria 0 SEEN /hpf (None Seen); Mucous, Urine 0 SEEN /hpf (<or=2+); Red Blood Cells-Urine 0 SEEN /hpf (0-5); Squamous Epithelial Cells - UA 0 SEEN /hpf (5-10); White Blood Cells 0 SEEN /hpf (0-5)
[2022-02-09 12:45] LABS: Color, Urine Yellow (Yellow); Glucose, Dipstick Normal (Normal); Ketone-Dipstick Negative (Negative); Leukocyte Esterase-Dipstick Negative /ul (Negative); Nitrite-Dipstick Negative (Negative); Occult Blood-Urine Negative /ul (Negative); Protein-Dipstick Negative (Negative); Specific Gravity, Urine 1.005 (1.002-1.030); Urine Bilirubin Dipstick Negative (Negative); Urine Clarity Clear (Clear); Urine Urobilinogen Normal (Normal); Urine pH 6.5 (5.0 - 8.0)
== END 2022-02-09 13:05 | disposition home or self-care (01) ==
PROVIDERS: Nurse Practitioner; Emergency Provider Emergency Medicine; PCP Internal Medicine; Visit Provider Emergency Medicine
DX: G45.9 Transient cerebral ischemic attack, unspecified (principal); G35 Multiple sclerosis; E78.5 Hyperlipidemia, unspecified; I10 Essential (primary) hypertension; R47.81 Slurred speech
CPT/HCPCS: 70450; 80048; 81001; 85025; 93005; 99283; A4216

== ENCOUNTER 2022-04-03 17:22 | Emergency (ER) | payer MEDICARE, SELFPAY ==
[2022-04-03 17:24] VITALS: BP 144/72; PULSE 76; RESP 16; TEMP 36.1; O2SAT 100; BMI 40.6
--- NOTE | 2022-04-03 18:05 | RAD_ITS ---
STUDY: RIGHT KNEE X-RAY SERIES OF 1812 HOURS ON 04/03/2022 REASON FOR EXAM: 61-year-old female with pain and swelling in the right knee. TECHNIQUE: 3 view(s) of the knee. COMPARISON: None. FINDINGS: No fractures or dislocations. Balanced knee joint. No arthritic or degenerative changes. No osseous lytic, sclerotic, or mass lesions are evident. Normal patella. Mild surrounding soft tissue swelling. RAD/Knee 3 Views IMPRESSION: 1. Mild soft tissue swelling. 2. Otherwise, normal examination. Electronically Signed: Erwin Li MD at 18:32 EDT ,
--- NOTE | 2022-04-03 19:37 | EDS_ITS ---
HPI History of Present Illness HPI Narrative: Tripped and fell at home landing on a hardwood floor causing a laceration to her right knee. Chief Complaint: Lower Extremity Injury Informant: patient Occured/Mechanism Mechanism/Context: Yes injury and Yes blunt trauma Onset/Context/Timing Onset: Today and Hours Context: Sudden Onset Timing: Continuous Quality of Pain: Dull and Aching Current Severity: Moderate Maximum Severity: Moderate Associated Symptoms Associated Symptoms: Negative for Parasthesia, Weakness or Loss of Funtion Narrative Narrative: 61-year-old female history of hypertension, MS and prior TIA. Currently on no blood thinners. Was walking through her home tripped and landed on her right knee on the hardwood floor causing a large laceration. She denies any other injuries. She denies hitting her head or having any LOC. Tetanus about 5 years ago. Tetanus Immunization: <5 years Prior similar symptoms: No Recent Illness/Hospitalization: No PFSH PFSH Medical History Anemia Flu vaccine need Health care maintenance Hyperlipemia Hypertension Hypothyroidism Multiple sclerosis Seasonal allergies Skin cancer Home Medications diroximel fumarate 231 mg capsule,delayed release (Vumerity) 462 mg PO BID 12/20/20 [History Last Taken Unknown] calcium carbonate 600 mg-vitamin D3 20 mcg (800 unit) chewable tablet (Caltrate 600 plus D) 1 tab PO BID 06/20/21 [History Last Taken Unknown] levothyroxine 88 mcg tablet 88 mcg PO DAILY #90 tabs 09/20/21 [Rx Last Taken Unknown] escitalopram oxalate 10 mg tablet (Lexapro) 10 mg PO DAILY #90 tabs 01/05/22 [Rx Last Taken Unknown] lisinopril 40 mg tablet 40 mg PO DAILY #90 tabs 01/05/22 [Rx Last Taken Unknown] atorvastatin 40 mg tablet 40 mg PO QHS #90 tabs 02/13/22 [Rx Last Taken Unknown] cephalexin 500 mg capsule 500 mg PO Q6 5 days #20 caps 04/03/22 [Rx Last Taken Unknown] Allergy/AdvReac Type Severity Reaction Status Date / Time No Known Allergies Allergy Verified 02/13/22 14:52 Family History Father Arthritis Heart disease Mother Hypertension Hyperlipemia Kidney disease Surgical History History of appendectomy History of hysterectomy Social History Smoking Status: Never smoker Tobacco: How many years used: 20 alcohol intake: current alcohol intake frequency: holidays/special occasions only substance use type: does not use what type of physical activity do you participate in: none ROS ROS ED ROS Narrative Denies recent illness. Review of Systems ROS Unobtainable: Denies due to encephalopathy Constitutional Constitutional ED: Denies chills Eyes Eyes: Denies blurry vision ENT ENT ED: Denies ear pain Cardiovascular Cardiovascular: Denies chest pain Respiratory/Chest Respiratory/Chest: Denies cough Gastrointestinal Gastrointestinal: Denies abdominal pain Genitourinary Genitourinary ED: Denies dysuria Integumentary Denies abscess Neurologic Neurologic: Denies headache(s) Psychiatric Psychiatric: Denies anxiety Endocrine Endocrinology: Denies polydipsia Hematologic/Lymphatic Hematologic/Lymphatic: Denies easy bleeding Allergic/Immunologic Allergic/Immunologic ED: Denies mouth swelling or tongue swelling EXAM Physical Exam Narrative Exam Narrative: 61-year-old female. Vital signs stable afebrile. H EENT exam unremarkable. Atraumatic. Neck nontender. Lungs are clear. Heart regular rhythm. Chest wall nontender. Abdomen soft nontender. Back and spine nontender. Moving all 4 extremities. Large laceration anterior aspect and medially of the right knee. Today significant amount of prior bleeding. Oozing at this time. No bony deformity. She is able to flex and extend. She can extend it 180 degrees of the right leg. And lift it off the bed. Left lower extremity is nontender. Neurologically she is awake and alert. Const Vital Signs: 04/03/22 17:24 Temperature 97 F L Temperature Source Temporal Pulse Rate 76 Respiratory Rate 16 Blood Pressure 144/72 H Blood Pressure Mean 96 Pulse Ox 100 Oxygen Delivery Method Room Air Positive well nourished, well developed and obese; Negative for cachectic, contractures or unkempt General Appearance ED: well developed; Negative for unkempt, cachectic or contractures Nutritional Appearance: obese; Negative for cachectic HEENT Reports moist mucous membranes normocephalic and atraumatic; Negative for trauma or tenderness Eyes PERRL Neck full ROM and supple Thyroid: Negative for tender Chest Wall inspection of chest normal and palpation of chest normal Resp normal respiratory effort and no retractions Effort and Inspection: Negative for pain with movement Auscultation: Negative for rales, rhonchi or wheezes Cardio regular rate, regular rhythm, S1 normal heart sound, S2 normal heart sound and no murmurs Rate: Negative for bradycardia GI non-tender, non-distended and no masses Inspection: Negative for abdominal distention Auscultation: normoactive bowel sounds Palpation: soft; Negative for tender or guarding Back/Spine no CVA tenderness General Back: Negative for CVA tenderness Cervical Spine: Negative for cervical spine tenderness Thoracic Spine / Upper Back: Negative for thoracic spinal tenderness Lumbar Spine / Lower Back: Negative for lumbar spinal tenderness Extremity normal to inspection and full ROM Neuro oriented x3 and moves all extremities Sensorium / Orientation: alert, oriented to person, oriented to place and oriented to time; Negative for orientation impaired, confused, lethargic or st uporous Motor Exam: strength 5/5 throughout Psych mental status grossly normal Appearance: Negative for unkempt Skin No no wounds Skin Narrative: Large laceration right anterior medial knee. Positive skin and subcu tissue. Moderate amount of bleeding. Lesions: no lesions Rashes: no rashes Trauma: Negative for abrasion MDM MDM MDM Narrative Medical decision making narrative: 61-year-old female fell has a laceration right knee. X-ray unremarkable other than soft tissue swelling. No bony deformity. Area will need to be cleaned locally anesthetized explored and closed. Her tetanus is already up-to-date. Pt doing well at 20:45 p.m. Wound closed. Wound care explained. Radiography Diagnostic Testing: Clinical Impression(s) from Imaging Studies Knee X-Ray 04/03/22 18:05 IMPRESSION: 1. Mild soft tissue swelling. 2. Otherwise, normal examination. Electronically Signed: Erwin Li MD at 18:32 EDT , Right knee x-ray, 3 views interpreted by myself and the radiologist shows soft tissue swelling but no bony abnormality. No fracture. No dislocation. Procedures Lacerations Knee laceration: Length: 7 in Depth: Sub Q Shape: Linear Prep: Sterile Conditions and Shure-Clens Laceration repair: Irrigated, Lidocaine, Local, Skin sutures and Wound explored Number of Sutures/[place]: 12 Suture Information: Ethilon, Simple and - (12 simple interrupted 3-0 ethilon sutures) Comment: Irrigated. Explored. Closed. Discharge Plan Triage Chief Complaint: Lower Extremity Injury ED Provider: Kalin Bautista Dx/Rx/DC Orders Clinical Impression: Fall, Deep laceration of knee Instructions: ED Laceration: All Closures Prescriptions: New cephalexin 500 mg capsule 500 mg PO Q6 5 Days Qty: 20 0RF No Action Vumerity 231 mg capsule,delayed release(DR/EC) 462 mg PO BID Caltrate 600 plus D 600 mg (1,500 mg)-800 unit tablet,chewable 1 tab PO BID atorvastatin 40 mg tablet 40 mg PO QHS Qty: 90 3RF levothyroxine 88 mcg tablet 88 mcg PO DAILY Qty: 90 1RF lisinopril 40 mg tablet 40 mg PO DAILY Qty: 90 3RF escitalopram oxalate [Lexapro] 10 mg tablet 10 mg PO DAILY Qty: 90 1RF Primary Care Provider: Xiomy Duran Referrals: Xiomy Duran MD [Primary Care Provider] - 10-14 Days suture removal Activity Restrictions/Additional Instructions: Keep area clean and drive. January S14 days suture removal.hower tomorrow. Dry thoroughly each time. Ice and elevate 4-5 times per day for 4 days. Tylenol for pain Stitches out in 14 days. Any signs of infection return. Apply antibiotic ointment daily. Disposition Disposition: Home, Self Care
[2022-04-03 20:42] VITALS: BP 138/65; PULSE 82; RESP 20; O2SAT 97
--- NOTE | 2022-04-03 21:15 | ED.RN ---
PT HAD BRIEF VAGAL EPISODE WHEN ATTEMPTING TO WALK TO HER WHEELCHAIR FOR DISCHARGE. SUPPORT GIVEN BY THIS RN, NAYELI LUNA AND SADIA VALERIO. PT RESTED FOR SEVERAL MINUTES AND THEN STATED SHE FELT READY TO BE DISCHARGED. THIS RN AND SADIA VALERIO AND PT'S SPOUSE ASSISTED PT IN GETTING INTO THE FAMILY VEHICLE. AT THAT TIME SHE DENIED DIZZINESS/NAUSEA AND FELT COMFORTABLE WITH HER D/C.
[2022-04-03] MEDS: Lidocaine 1% (20 ml mdv) 20 ML Vial INFILT ×2 (21:19)
== END 2022-04-03 21:20 | disposition home or self-care (01) ==
PROVIDERS: Emergency Provider Emergency Medicine; PCP Internal Medicine; Visit Provider Emergency Medicine
DX: S81.019A Laceration without foreign body, unspecified knee, initial encounter (principal); G35 Multiple sclerosis; W01.0XXA Fall on same level from slipping, tripping and stumbling without subsequent striking against object, initial encounter; I10 Essential (primary) hypertension; E78.5 Hyperlipidemia, unspecified; Z86.73 Personal history of transient ischemic attack (TIA), and cerebral infarction without residual deficits; E03.9 Hypothyroidism, unspecified
CPT/HCPCS: 12002; 73562; 99284

== ENCOUNTER 2022-05-22 15:00 | Outpatient (RCR) | payer MEDICARE, SELFPAY ==
[2022-04-27 13:06] VITALS: BP 173/84; PULSE 84; TEMP 36.2; BMI 41.6
--- NOTE | 2022-04-27 15:00 | HP.PCM_ITS ---
History of Present Illness Date of Service: 04/27/22 Chief Complaint: Non healing right knee wound History of Wound: Patient is a 61-year-old female who presents for follow-up following right knee. She fell on 04/03/2022 and required sutures. After the sutures removed her wound started to dehisce. She was to see her PCP, Dr. Duran, who referred her to the wound center. She also has a significant history of MS and she was just recently started on Ocrevus and received half a dose for her first infusion. She has had increased falls recently and she is now walking with a walker. She states that her clinic for management of her MS. Her other medical history is hypothyroidism, CKD stage III, TIA, PE, and DVT and is on blood thinners. She quit smoking 5 years ago. For her wound care she is replacing antibiotic ointment over the laceration and cover with gauze. Wound culture obtained today, 04/27/22. Today she denies fever, chills, nausea, vomiting. She states her appetite is good. Progress of Wound: Right knee is swollen, she has a open laceration across her entire knee. Upon palpitation large amount of serosanguineous drainage was expressed out. There are couple areas of tunneling. [facility] Medical History Anemia Flu vaccine need Health care maintenance History of DVT (deep vein thrombosis) History of TIA (transient ischemic attack) Hyperlipemia Hypertension Hypothyroidism Multiple sclerosis Seasonal allergies Skin cancer Traumatic open wound of right lower leg with delayed healing Home Medications calcium carbonate 600 mg-vitamin D3 20 mcg (800 unit) chewable tablet (Caltrate 600 plus D) 1 tab PO BID 06/20/21 [History Last Taken Unknown] levothyroxine 88 mcg tablet 88 mcg PO DAILY #90 tabs 09/20/21 [Rx Last Taken Unknown] escitalopram oxalate 10 mg tablet (Lexapro) 10 mg PO DAILY #90 tabs 01/05/22 [Rx Last Taken Unknown] lisinopril 40 mg tablet 40 mg PO DAILY #90 tabs 01/05/22 [Rx Last Taken Unknown] atorvastatin 40 mg tablet 40 mg PO QHS #90 tabs 02/13/22 [Rx Last Taken Unknown] ocrelizumab 30 mg/mL intravenous solution (Ocrevus) mg .Route [id number] 04/17/22 [History Last Taken Unknown] Allergy/AdvReac Type Severity Reaction Status Date / Time No Known Allergies Allergy Verified 04/24/22 09:30 Family History Father Arthritis Heart disease Mother Hypertension Hyperlipemia Kidney disease Surgical History History of appendectomy History of hysterectomy Social History Smoking Status: Former smoker quit date: 09/24/15 Tobacco: How many years used: 20 alcohol intake: current alcohol intake frequency: holidays/special occasions only substance use type: does not use what type of physical activity do you participate in: none ROS Constitutional Constitutional: Reports fatigue and frequent falls; Denies fever(s) Eyes Eyes: Reports requires corrective lenses ENT HEENT: Reports none Cardiovascular Cardiovascular: Reports fatigue; Denies chest pain, dyspnea or nausea Respiratory/Chest Respiratory/Chest: Denies chest congestion, cough or dyspnea Gastrointestinal Gastrointestinal: Denies diarrhea, nausea or vomiting Musculoskeletal Musculoskeletal: Reports difficulty walking Integumentary Integumentary: Reports skin ulcer Neurologic Neurologic: Reports abnormal gait and frequent falls Psychiatric Psychiatric: Reports none Endocrine Endocrinology: Reports fatigue Vital Signs Vital Signs Vital Signs: 04/27/22 13:06 Temperature 97.2 F L Temperature Source Temporal Pulse Rate 84 Blood Pressure 173/84 H Blood Pressure Mean 113 Blood Pressure Source Monitor Weight Weight: 282 lb Body Mass Index (BMI) 41.6 Physical Exam Const alert, oriented x3 and no apparent distress General Appearance: cooperative HEENT normocephalic Neck full ROM Resp normal respiratory effort, normal air movement and clear to auscultation bilaterally Cardio regular rate and regular rhythm Peripheral Pulses: posterior tibial pulses present and dorsalis pedis pulses present GI normal to inspection, nondistended, normoactive bowel sounds, soft to palpation and non-tender Extremity normal capillary refill Extremity Narrative: +2 edema right leg. Walks with a walker. Skin Wound Narrative: Large right knee laceration is swollen, and pink. No warmth. With palpation, a large pocket of seroma drained from the medial aspect of the laceration. Some old blood clot present. The base of the wound is pink, there are tunnels present. Neuro oriented x3 and moves all extremities Psych mental status grossly normal Debridement Note Debridement Note Wound debrided: knee laceration wound Laterality: Right Wound Grade/Stage: Stage 4 Type of Debridement: Excisional debridement Anesthesia Used: 5% Lidocaine Gel Depth: Down to and including healthy tissue and in the subcutaneous layer Percentage of wound debrided: 100 Instrument Used: 7mm curette Tissue Removed: Devitalized tissue and slough, some old blood clot along w/ serosanguineos Severity: Fat Layer Exposed Amount of bleeding with debridement: Mild Bleeding Controlled with: Pressure and Compression and gauze Patient tolerated procedure: Patient tolerated procedure well Debridement Free Text: With palpation a fluid pocket of seroma from the medial aspect of the laceration drained. There were areas of old blood, along with non vitalized tissue and slough. Post-Debridement Measurements and Additional Note: Post-Debridement Measurements/Treatment - Nurse 1 - General Ulcer Assessment Start: 04/27/22 13:05 Freq: Status: Active Protocol: ATA Activity Type Activity Date Activity User E-sign Co-sign Detail Recorded Client Recorded Date Recorded By Document 04/27/22 13:06 CANDICE [id number] 04/27/22 13:18 CANDICE 04/27/22 13:06 - Today's Visit Information Type of service Initial Visit Arrival Mode Ambulatory Patient Identification Verified (Name & Yes ) Patient Requires Transmission-Based No Precautions Safety Precautions NA Height and Weight Height 5 ft 9 in Weight 282 lb Weight in Pounds 282.0 lbs Body Mass Index (BMI) 41.6 BMI Classification Obese BSA - Holli 2.39 Vital Signs Temperature (97.8 F-99.1 F) 97.2 F L Temperature Source Temporal Pulse Rate (60-100) 84 Pulse Location Monitor Blood Pressure (90/60-120/80) 173/84 H Blood Pressure Mean 113 Source Monitor History Since Last Visit- (Skip if this is Patient's initial visit) Have you changed medications since your No last visit? Any new allergies or adverse reactions No Had a fall/change in ADL's that may No increase risk of falls Signs or symptoms of abuse and/or No neglect since last visit Have you been in the hospital since your No last visit? Has dressing in place as prescribed Yes Has compression in place as prescribed Yes Has offloadiing in place as prescribed Yes Experienced any changes in pain level or No management Left Footwear Regular Shoe Right Footwear Regular Shoe Pain Scale: 0-10 Numeric Is Patient Pain Free? Yes [facility] - Nurse 1 - General Ulcer Measurement Start: 04/27/22 13:05 Freq: Status: Active Protocol: Activity Type Activity Date Activity User E-sign Co-sign Detail Recorded Client Recorded Date Recorded By Document 04/27/22 13:06 CANDICE [id number] 04/27/22 13:18 CANDICE 04/27/22 13:06 Wound Center Nurse 1 #1 R knee -Combined with other wound No -Current Size (cm) - Length 0.6 -Current Size (cm) - Width 10.5 -Current Size (cm) - Depth 0.5 -Total Square Cm 6.30 -Date of Last Picture (Recall this 04/27/22 field) -Photo Taken Yes -Epithelialization None Present -Tunneling No -Undermining/Tunneling No -Circular Undermining No -Change in Wound Grade/Stage No -Exudate Amt Medium -Exudate Type Serosanguineous -Wound Margin Distinct, Outline Attached -Granulation Amt None Present (0 %) -Granulation Quality N/A -Slough/Fibrin Yes -Necrosis Amt Large (67-100%) -Necrotic Tissue Type Adherent Slough -Structure Exposed N/A -Texture (Emmy-wound Skin Appearance) Assessed, Scarring -Moisture (Emmy-wound Skin Appearance) No Abnormality, Assessed -Color (Emmy-wound Skin Appearance) No Abnormality, Assessed -Temperature (Emmy-wound Skin No Abnormality Appearance) (Pt Warm) -Tenderness on Palpation (Emmy-wound No Skin Appearance) -Ulcer Cleansing Rinsed/ Irrigated with Saline -Foul Odor after Cleansing No -Anesthetic Used 5% Lidocaine Gel Lower Limb Edema Present No Right Calf (cm) 46 Right Ankle (cm) 25 Left Calf (cm) 44.5 Left Ankle (cm) 23 [facility] - Nurse 3 - General Ulcer D/C NN Start: 04/27/22 13:05 Freq: Status: Active Protocol: Activity Type Activity Date Activity User E-sign Co-sign Detail Recorded Client Recorded Date Recorded By Document 04/27/22 14:16 CANDICE [id number] 04/27/22 14:17 [place] 04/27/22 14:16 Wound Care Nurse 3 #1 R knee -Ulcer Cleansing Rinsed/ Irrigated with Saline -Foul Odor after Cleansing No -Negative Pressure Wound Therapy N/A -Primary Dressing Applied Aquacel AG 4x4 -Other Dressing ABD x2 -Primary Dressing Covered/Secured with Dry Gauze & Roll Gauze, Secured with Tape -Aquacel AG 4x4 2 Right -Tubular Bandage Single Layer -Size of Tubigrip Used Size F -Size F ($) 1 Pain Scale: 0-10 Numeric Is Patient Pain Free? Yes WC - Visit Discharge Discharge Condition Stable Ambulatory Status Ambulatory, Walker Transportation Private Auto Accompanied by Medication Reconcilliation completed & Yes provided to patient/care provider Clinical Summary of Care Provided Yes Charges/Coding Visit Charges Office Visits / Consults: 00660 OV L4 Est (25 modifier) Procedures Integumentary 111xxx-113xx: [id number] Gretel subq tissue 20 sq cm/< Assessment/Plan Assessment/Plan (1) Traumatic open wound of right lower leg with delayed healing: CODE(S): S81.801D - Unspecified open wound, right lower leg, subsequent encounter (2) Multiple sclerosis: CODE(S): G35 - Multiple sclerosis (3) Chronic anticoagulation: CODE(S): Z79.01 - USP (current) use of anticoagulants PLAN: Plan Patient was evaluated at the wound center today, subcutaneous debridement was performed as previously documented. Wound culture obtained today,04/27/22, depending on the results of the culture it may necessitate the need for treatment with antibiotics. Wound care - Aquacel-Ag packed into the the wound including the 2 tunnel areas topped with gauze/ABD/super absorber daily. She is to wash the wounds with soap and water at the time of the dressing changes. Tubigrip up above her knee for compression to help hold the dressing in place. She would be a good candidate for the SNAP vac, we will apply for insurance approval. Encouraged increase protein intake to help with wound healing. Follow up one week. Call or come into to be seen if develop issues.
[2022-05-04 14:20] VITALS: BP 157/87; PULSE 80; RESP 16; TEMP 36; BMI 41.6
--- NOTE | 2022-05-04 15:13 | PCM.WC.PN ---
History of Present Illness Date of Service: 05/04/22 Chief Complaint: Non healing right knee wound History of Wound: Patient is a 61-year-old female who presents for follow-up following right knee. She fell on 04/03/2022 and required sutures. After the sutures removed her wound started to dehisce. She was to see her PCP, Dr. Duran, who referred her to the wound center. She also has a significant history of MS and she was just recently started on Ocrevus and received half a dose for her first infusion. She has had increased falls recently and she is now walking with a walker. She states that her clinic for management of her MS. Her other medical history is hypothyroidism, CKD stage III, TIA, PE, and DVT and is on blood thinners. She quit smoking 5 years ago. Wound care - Had been packing silver alginate dressing, she has been approved for a SNAP vac, so will apply that twice weekly. Wound culture obtained on 04/27/22 which is positive for Staphylococcus haemolyticus, MRSE. They will be treated with Doxycycline. Today she denies fever, chills, nausea, vomiting. She states her appetite is good. Progress of Wound: Right knee ulcer is stable. She continues to have old bloody drainage from the one tunnel. Swelling is not as severe today. Objective Data Objective Data Vital Signs: Vital Signs Temp Pulse Resp BP O2 Del Method 96.8 F L 80 16 157/87 H Room Air 05/04/22 14:20 05/04/22 14:20 05/04/22 14:20 05/04/22 14:20 05/04/22 14:20 Oxygen Delivery Method Room Air Weight: 282 lb Body Mass Index (BMI) 41.6 Lab / Micro Data Micro: Microbiology 04/27/22 13:50 Wound - Knee Gram Stain - Final 04/27/22 13:50 Wound - Knee Wound Culture - Final Staphylococcus haemolyticus Staphylococcus epidermidis 04/27/22 13:50 Wound - Knee Anaerobic Culture - Final No anaerobic bacteria isolated. Charges/Coding Procedures Integumentary 111xxx-113xx: 36106 Gretel subq tissue 20 sq cm/< Add On Codes: 78780 Gretel subq tissue add-on Physical Exam Const alert, oriented x3 and no apparent distress General Appearance: cooperative HEENT normocephalic Resp normal respiratory effort Cardio regular rate Peripheral Pulses: posterior tibial pulses present and dorsalis pedis pulses present Extremity normal capillary refill Extremity Narrative: +2 edema right leg. Walks with a walker. Skin Wound Narrative: Large right knee laceration/ulcer has improved this week. She continues to have the two tunnels and the one at 7 o'clock has old, bloody drainage that cant be expressed from the tunnel. Neuro oriented x3 and moves all extremities Psych mental status grossly normal Debridement Note Debridement Note Wound debrided: knee laceration wound Laterality: Right Wound Grade/Stage: Stage 4 Type of Debridement: Excisional debridement Anesthesia Used: 5% Lidocaine Gel Depth: Down to and including healthy tissue and in the subcutaneous layer Percentage of wound debrided: 100 Instrument Used: 7mm curette and #15 blade Tissue Removed: Devitalized tissue and slough Severity: Fat Layer Exposed Amount of bleeding with debridement: Mild Bleeding Controlled with: Pressure and Compression and gauze Patient tolerated procedure: Patient tolerated procedure well Debridement Free Text: Easily removed necrotic tissue along the edges with #15 blade and pickups. Post-Debridement Measurements and Additional Note: Post-Debridement Measurements/Treatment - Nurse 1 - General Ulcer Assessment Start: 04/27/22 13:05 Freq: Status: Active Protocol: ATA Activity Type Activity Date Activity User E-sign Co-sign Detail Recorded Client Recorded Date Recorded By Document 04/27/22 13:06 SD [id number] 04/27/22 13:18 SD Document 05/04/22 14:20 [facility] [id number] 05/04/22 14:33 [facility] 04/27/22 05/04/22 13:06 14:20 - Today's Visit Information Type of service Initial Visit Follow-up Visit (Physician/WOMEN'S HEALTH CARE NURSE PRACTITIONER ) Arrival Mode Ambulatory Ambulatory, Walker Transfer Assistance None Accompanied by Patient Identification Verified (Name & Yes Yes ) Patient Requires Transmission-Based No No Precautions Safety Precautions NA Height and Weight Height 5 ft 9 in Weight 282 lb Weight in Pounds 282.0 lbs Body Mass Index (BMI) 41.6 41.6 BMI Classification Obese Obese BSA - Holli 2.39 Vital Signs Temperature (97.8 F-99.1 F) 97.2 F L 96.8 F L Temperature Source Temporal Temporal Pulse Rate (60-100) 84 80 Pulse Location Monitor Monitor Respiratory Rate (12-18) 16 Respiratory rate source Observation Oxygen Delivery Method Room Air Blood Pressure (90/60-120/80) 173/84 H 157/87 H Blood Pressure Mean (mm Hg) 113 110 Source Monitor Monitor Position Sitting Blood Pressure Location Left Arm History Since Last Visit- (Skip if this is Patient's initial visit) Have you changed medications since your No No last visit? Any new allergies or adverse reactions No No Had a fall/change in ADL's that may No No increase risk of falls Signs or symptoms of abuse and/or No No neglect since last visit Have you been in the hospital since your No No last visit? Has dressing in place as prescribed Yes Yes Has compression in place as prescribed Yes Yes Has offloadiing in place as prescribed Yes N/A Experienced any changes in pain level or No No management Left Footwear Regular Shoe Regular Shoe Right Footwear Regular Shoe Regular Shoe Pain Scale: 0-10 Numeric Is Patient Pain Free? Yes Yes WC - Nurse 1 - General Ulcer Measurement Start: 04/27/22 13:05 Freq: Status: Active Protocol: Activity Type Activity Date Activity User E-sign Co-sign Detail Recorded Client Recorded Date Recorded By Document 04/27/22 13:06 SD [id number] 04/27/22 13:18 AK Document 05/04/22 14:20 [facility] [id number] 05/04/22 14:33 [facility] 04/27/22 05/04/22 13:06 14:20 Wound Center Nurse 1 #1 R knee -Combined with other wound No No -Current Size (cm) - Length 0.6 2.6 -Current Size (cm) - Width 10.5 8.5 -Current Size (cm) - Depth 0.5 0.3 -Total Square Cm 6.30 22.10 -Date of Last Picture (Recall this 04/27/22 field) -Photo Taken Yes No -Epithelialization None Present None Present -Tunneling No No -Undermining/Tunneling No Yes -Undermining/Tunneling Starts (O'clock 8 ) -Undermining/Tunneling Ends (O'clock) 5 -Maximum Distance (cm) 7 -Undermining/Tunneling Starts #2 (O' 1 clock) -Undermining/Tunneling Ends #2 (O' 2 clock) -Maximum Distance #2 (cm) 1.7 -Circular Undermining No No -Change in Wound Grade/Stage No -Exudate Amt Medium Large -Exudate Type Serosanguineous Sanguineous -Wound Margin Distinct, Distinct, Outline Outline Attached Attached -Granulation Amt None Present (0 Medium (34-66%) %) -Granulation Quality N/A Red -Slough/Fibrin Yes Yes -Necrosis Amt Large (67-100%) Medium (34-66%) -Necrotic Tissue Type Adherent Slough Adherent Slough -Structure Exposed N/A -Texture (Emmy-wound Skin Appearance) Assessed, Assessed, Scarring Localized Edema ,Scarring -Moisture (Emmy-wound Skin Appearance) No Abnormality, Assessed,Dry/ Assessed Scaly -Color (Emmy-wound Skin Appearance) No Abnormality, Assessed Assessed -Temperature (Emmy-wound Skin No Abnormality No Abnormality Appearance) (Pt Warm) (Pt Warm) -Tenderness on Palpation (Emmy-wound No No Skin Appearance) -Ulcer Cleansing Rinsed/ Rinsed/ Irrigated with Irrigated with Saline Saline -Foul Odor after Cleansing No No -Anesthetic Used 5% Lidocaine 4% Lidocaine Gel Solution Lower Limb Edema Present No Yes Right Calf (cm) 46 43.7 Right Ankle (cm) 25 26 Left Calf (cm) 44.5 Left Ankle (cm) 23 WC - Nurse 2 - General Ulcer CM Notes Start: 04/27/22 13:05 Freq: Status: Active Protocol: Activity Type Activity Date Activity User E-sign Co-sign Detail Recorded Client Recorded Date Recorded By Document 04/27/22 15:17 PL [id number] 04/27/22 15:19 PL Document 05/04/22 14:55 MW [id number] 05/04/22 15:08 MW 04/27/22 05/04/22 15:17 14:55 Wound Center Nurse 2 #1 R knee -Time 13:40 14:55 -Correct Patient Yes Yes -Correct Side, Site, Position Yes Yes -Correct Procedure Yes Yes -Procedure Performed Yes Yes -Type of Procedure Debridement Debridement -Clinical Debridement Subcutaneous Subcutaneous -Tissue Removed Subcutaneous Subcutaneous -Post Debridement (cm) - Length 1.0 2.5 -Post Debridement (cm) - Width 8.0 8.8 -Post Debridement (cm) - Depth 0.8 0.6 -Total Square (Post) (cm) 8.00 22.00 -Area of Debridement (cm) - Length 1.0 2.5 -Area of Debridement (cm) - Width 8.0 8.8 -Total Square (Area) (cm) 8.00 22.00 -Tunneling No Yes -Tunneling Position (O'clock) 7 -Tunneling Distance (cm) 8.7 -Undermining/Tunneling Yes Yes -Undermining/Tunneling Starts (O'clock 2 12 ) -Undermining/Tunneling Ends (O'clock) 3 2 -Maximum Distance (cm) 3.3 2.6 -Undermining/Tunneling Starts #2 (O' 6 clock) -Undermining/Tunneling Ends #2 (O' 7 clock) -Maximum Distance #2 (cm) 5.1 -Circular Undermining No No -Wound/Ulcer Outcome Not Healed Not Healed -Ulcer Cleansing Rinsed/ Rinsed/ Irrigated with Irrigated with Saline Saline -Foul Odor after Cleansing No No -Bioengineered Tissue No No -Bleeding Controlled with Pressure Pressure -Treatment Response Procedure Procedure Tolerated Well Tolerated Well -Offloading No -Debridement - Subq, 1st 20sq cm Yes Yes -Debridement, SubQ, ea addt'l 20sq cm 1 or part thereof Pain Scale: 0-10 Numeric Is Patient Pain Free? Yes Yes - Nurse 3 - General Ulcer D/C NN Start: 04/27/22 13:05 Freq: Status: Active Protocol: Activity Type Activity Date Activity User E-sign Co-sign Detail Recorded Client Recorded Date Recorded By Document 04/27/22 14:16 CANDICE [id number] 04/27/22 14:17 CANDICE 04/27/22 14:16 Wound Care Nurse 3 #1 R knee -Ulcer Cleansing Rinsed/ Irrigated with Saline -Foul Odor after Cleansing No -Negative Pressure Wound Therapy N/A -Primary Dressing Applied Aquacel AG 4x4 -Other Dressing ABD x2 -Primary Dressing Covered/Secured with Dry Gauze & Roll Gauze, Secured with Tape -Aquacel AG 4x4 2 Right -Tubular Bandage Single Layer -Size of Tubigrip Used Size F -Size F ($) 1 Pain Scale: 0-10 Numeric Is Patient Pain Free? 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 Wound culture obtained 04/27/22 which was positive for Staphylococcus haemolyticus and MRSE. Will start her on Doxycycline. Wound care - Stop [facility]. She has been approved for the SNAP VAC, will apply today. Tubigrip up above her knee for compression. Encouraged increase protein intake to help with wound healing. Follow up Sunday for Nurse visit and to have SNAP VAC changed. Then follow up one week to see me. Call or come into to be seen if develop issues.
[2022-05-08 15:06] VITALS: RESP 18; TEMP 36.3; BMI 41.6
[2022-05-11 14:27] VITALS: BP 156/100; PULSE 116; TEMP 36.2; BMI 41.6
--- NOTE | 2022-05-11 15:24 | PN.PCM_ITS ---
History of Present Illness Date of Service: 05/11/22 Chief Complaint: Non healing right knee wound History of Wound: Patient is a 61-year-old female who presents for follow-up following right knee. She fell on 04/03/2022 and required sutures. After the sutures removed her wound started to dehisce. She was to see her PCP, Dr. Duran, who referred her to the wound center. She also has a significant history of MS and she was just recently started on Ocrevus and received half a dose for her first infusion. She has had increased falls recently and she is now walking with a walker. She states that her clinic for management of her MS. Her other medical history is hypothyroidism, CKD stage III, TIA, PE, and DVT and is on blood thinners. She quit smoking 5 years ago. Wound care - Had been packing silver alginate dressing, she has been approved for a SNAP vac, so will apply that twice weekly. Wound culture obtained on 04/27/22 which is positive for Staphylococcus haemolyticus, MRSE. They will be treated with Doxycycline. Today she denies fever, chills, nausea, vomiting. She states her appetite is good. Progress of Wound: Right knee ulcer has improved. She continues to have a tunnel at around 1:00 and at tunnel at 7:00. The tunnel at 7:00 has not shown any improvement. We will continue the snap VAC until we can get a regular [facility] wound VAC approved. Objective Data Objective Data Vital Signs: Vital Signs Temp Pulse Resp BP O2 Del Method 97.2 F L 116 H 18 156/100 H Room Air 05/11/22 14:27 05/11/22 14:27 05/08/22 15:06 05/11/22 14:27 05/04/22 14:20 Oxygen Delivery Method Room Air Weight: 282 lb Body Mass Index (BMI) 41.6 Lab / Micro Data Micro: Microbiology 04/27/22 13:50 Wound - Knee Gram Stain - Final 04/27/22 13:50 Wound - Knee Wound Culture - Final Staphylococcus haemolyticus Staphylococcus epidermidis 04/27/22 13:50 Wound - Knee Anaerobic Culture - Final No anaerobic bacteria isolated. Charges/Coding Procedures Integumentary 111xxx-113xx: 88913 Gretel subq tissue 20 sq cm/< Add On Codes: 21298 Gretel subq tissue add-on Physical Exam Const alert and oriented x3 General Appearance: cooperative HEENT normocephalic Resp normal respiratory effort Cardio regular rate Peripheral Pulses: dorsalis pedis pulses present Extremity normal capillary refill Extremity Narrative: +1-+2 edema right leg. Walks with a walker. Skin Wound Narrative: Right knee laceration/ulcer has improved this week. She continues to have the two tunnels and the one at 7 o'clock has not improved much using the SNAP vac over the last week. Neuro oriented x3 and moves all extremities Psych mental status grossly normal Debridement Note Debridement Note Wound debrided: knee ulcer Laterality: Right Wound Grade/Stage: Stage IV Type of Debridement: Excisional debridement Anesthesia Used: 4% Lidocaine Solution and 5% Lidocaine Gel Depth: Down to and including healthy tissue and in the subcutaneous layer Percentage of wound debrided: 100 Instrument Used: 7mm curette Tissue Removed: Devitalized tissue and slough Severity: Fat Layer Exposed Amount of bleeding with debridement: Mild Bleeding Controlled with: Pressure and Compression and gauze Patient tolerated procedure: Patient tolerated procedure well Post-Debridement Measurements and Additional Note: Post-Debridement Measurements/Treatment - Nurse 1 - General Ulcer Assessment Start: 04/27/22 13:05 Freq: Status: Active Protocol: ALPESH.CARLEEN Activity Type Activity Date Activity User E-sign Co-sign Detail Recorded Client Recorded Date Recorded By Document 04/27/22 13:06 WA [id number] 04/27/22 13:18 AK Document 05/04/22 14:20 [facility] [id number] 05/04/22 14:33 BM Document 05/08/22 15:06 DL [id number] 05/08/22 15:09 DL Document 05/11/22 14:27 WA [id number] 05/11/22 14:31 AK 04/27/22 05/04/22 05/08/22 13:06 14:20 15:06 - Today's Visit Information Type of service Initial Visit Follow-up Visit Nurse-only (Physician/BANK COURIER Visit ) Arrival Mode Ambulatory Ambulatory, Ambulatory Walker Transfer Assistance None None Accompanied by Patient Identification Verified (Name & Yes Yes Yes ) Patient Requires Transmission-Based No No No Precautions Safety Precautions NA Height and Weight Height 5 ft 9 in Weight 282 lb Weight in Pounds 282.0 lbs Body Mass Index (BMI) 41.6 41.6 41.6 BMI Classification Obese Obese Obese BSA - Holli 2.39 Vital Signs Temperature (97.8 F-99.1 F) 97.2 F L 96.8 F L 97.4 F L Temperature Source Temporal Temporal Temporal Pulse Rate (60-100) 84 80 Pulse Location Monitor Monitor Respiratory Rate (12-18) 16 18 Respiratory rate source Observation Observation Oxygen Delivery Method Room Air Blood Pressure (90/60-120/80) 173/84 H 157/87 H Blood Pressure Mean (mm Hg) 113 110 Source Monitor Monitor Position Sitting Blood Pressure Location Left Arm History Since Last Visit- (Skip if this is Patient's initial visit) Have you changed medications since your No No No last visit? Any new allergies or adverse reactions No No No Had a fall/change in ADL's that may No No No increase risk of falls Signs or symptoms of abuse and/or No No No neglect since last visit Have you been in the hospital since your No No No last visit? Has dressing in place as prescribed Yes Yes Yes Has compression in place as prescribed Yes Yes Yes Has offloadiing in place as prescribed Yes N/A N/A Experienced any changes in pain level or No No No management Left Footwear Regular Shoe Regular Shoe Right Footwear Regular Shoe Regular Shoe Pain Scale: 0-10 Numeric Is Patient Pain Free? Yes Yes Yes 05/11/22 14:27 WC - Today's Visit Information Type of service Follow-up Visit (Physician/BANK COURIER ) Arrival Mode Ambulatory, Walker Transfer Assistance Accompanied by Patient Identification Verified (Name & Yes ) Patient Requires Transmission-Based No Precautions Safety Precautions Height and Weight Height Weight Weight in Pounds Body Mass Index (BMI) 41.6 BMI Classification Obese BSA - Holli Vital Signs Temperature (97.8 F-99.1 F) 97.2 F L Temperature Source Temporal Pulse Rate (60-100) 116 H Pulse Location Monitor Respiratory Rate (12-18) Respiratory rate source Oxygen Delivery Method Blood Pressure (90/60-120/80) 156/100 H Blood Pressure Mean (mm Hg) 118 Source Monitor Position Blood Pressure Location History Since Last Visit- (Skip if this is Patient's initial visit) Have you changed medications since your No last visit? Any new allergies or adverse reactions No Had a fall/change in ADL's that may No increase risk of falls Signs or symptoms of abuse and/or No neglect since last visit Have you been in the hospital since your No last visit? Has dressing in place as prescribed Yes Has compression in place as prescribed Yes Has offloadiing in place as prescribed N/A Experienced any changes in pain level or No management Left Footwear Regular Shoe Right Footwear Regular Shoe Pain Scale: 0-10 Numeric Is Patient Pain Free? Yes WC - Nurse 1 - General Ulcer Measurement Start: 04/27/22 13:05 Freq: Status: Active Protocol: Activity Type Activity Date Activity User E-sign Co-sign Detail Recorded Client Recorded Date Recorded By Document 04/27/22 13:06 AK [id number] 04/27/22 13:18 AK Document 05/04/22 14:20 BMF [id number] 05/04/22 14:33 BMF Document 05/08/22 15:06 DL [id number] 05/08/22 15:09 DL Document 05/11/22 14:31 AK [id number] 05/11/22 14:34 AK 04/27/22 05/04/22 05/08/22 13:06 14:20 15:06 Wound Center Nurse 1 #1 R knee -Combined with other wound No No -Current Size (cm) - Length 0.6 2.6 -Current Size (cm) - Width 10.5 8.5 -Current Size (cm) - Depth 0.5 0.3 -Total Square Cm 6.30 22.10 -Date of Last Picture (Recall this 04/27/22 field) -Photo Taken Yes No No -Epithelialization None Present None Present -Tunneling No No -Undermining/Tunneling No Yes -Undermining/Tunneling Starts (O'clock 8 ) -Undermining/Tunneling Ends (O'clock) 5 -Maximum Distance (cm) 7 -Undermining/Tunneling Starts #2 (O' 1 clock) -Undermining/Tunneling Ends #2 (O' 2 clock) -Maximum Distance #2 (cm) 1.7 -Circular Undermining No No -Change in Wound Grade/Stage No -Exudate Amt Medium Large Large -Exudate Type Serosanguineous Sanguineous Serosanguineous -Wound Margin Distinct, Distinct, Thickened & Outline Outline Rolled Under Attached Attached -Granulation Amt None Present (0 Medium (34-66%) Medium (34-66%) %) -Granulation Quality N/A Red [place],Red -Slough/Fibrin Yes Yes -Necrosis Amt Large (67-100%) Medium (34-66%) Medium (34-66%) -Necrotic Tissue Type Adherent Slough Adherent Slough Adherent Slough -Structure Exposed N/A N/A -Texture (Emmy-wound Skin Appearance) Assessed, Assessed, Scarring Scarring Localized Edema ,Scarring -Moisture (Emmy-wound Skin Appearance) No Abnormality, Assessed,Dry/ No Abnormality Assessed Scaly -Color (Emmy-wound Skin Appearance) No Abnormality, Assessed No Abnormality Assessed -Temperature (Emmy-wound Skin No Abnormality No Abnormality No Abnormality Appearance) (Pt Warm) (Pt Warm) (Pt Warm) -Tenderness on Palpation (Emmy-wound No No Skin Appearance) -Ulcer Cleansing Rinsed/ Rinsed/ Soap and Water Irrigated with Irrigated with Saline Saline -Foul Odor after Cleansing No No No -Anesthetic Used 5% Lidocaine 4% Lidocaine Gel Solution Lower Limb Edema Present No Yes Right Calf (cm) 46 43.7 Right Ankle (cm) 25 26 Left Calf (cm) 44.5 Left Ankle (cm) 23 05/11/22 14:31 Wound Center Nurse 1 #1 R knee -Combined with other wound -Current Size (cm) - Length 3.3 -Current Size (cm) - Width 8.4 -Current Size (cm) - Depth 0.4 -Total Square Cm 27.72 -Date of Last Picture (Recall this field) -Photo Taken No -Epithelialization -Tunneling No -Undermining/Tunneling Yes -Undermining/Tunneling Starts (O'clock 1 ) -Undermining/Tunneling Ends (O'clock) 2 -Maximum Distance (cm) 1.3 -Undermining/Tunneling Starts #2 (O' 7 clock) -Undermining/Tunneling Ends #2 (O' 9 clock) -Maximum Distance #2 (cm) 6.6 -Circular Undermining No -Change in Wound Grade/Stage No -Exudate Amt Large -Exudate Type Serosanguineous -Wound Margin Distinct, Outline Attached -Granulation Amt Large (67-100%) -Granulation Quality [place],Red -Slough/Fibrin Yes -Necrosis Amt Medium (34-66%) -Necrotic Tissue Type Adherent Slough -Structure Exposed N/A -Texture (Emmy-wound Skin Appearance) No Abnormality, Assessed -Moisture (Emmy-wound Skin Appearance) No Abnormality, Assessed -Color (Emmy-wound Skin Appearance) No Abnormality, Assessed -Temperature (Emmy-wound Skin No Abnormality Appearance) (Pt Warm) -Tenderness on Palpation (Emym-wound No Skin Appearance) -Ulcer Cleansing Soap and Water -Foul Odor after Cleansing No -Anesthetic Used 4% Lidocaine Solution Lower Limb Edema Present No Right Calf (cm) Right Ankle (cm) Left Calf (cm) Left Ankle (cm) WC - Nurse 2 - General Ulcer CM Notes Start: 04/27/22 13:05 Freq: Status: Active Protocol: Activity Type Activity Date Activity User E-sign Co-sign Detail Recorded Client Recorded Date Recorded By Document 04/27/22 15:17 PL [id number] 04/27/22 15:19 PL Document 05/04/22 14:55 MW [id number] 05/04/22 15:08 MW Document 05/11/22 15:00 MW [id number] 05/11/22 15:04 MW 04/27/22 05/04/22 05/11/22 15:17 14:55 15:00 Wound Center Nurse 2 #1 R knee -Time 13:40 14:55 15:02 -Correct Patient Yes Yes Yes -Correct Side, Site, Position Yes Yes Yes -Correct Procedure Yes Yes Yes -Procedure Performed Yes Yes Yes -Type of Procedure Debridement Debridement Debridement -Clinical Debridement Subcutaneous Subcutaneous Subcutaneous -Tissue Removed Subcutaneous Subcutaneous Subcutaneous -Post Debridement (cm) - Length 1.0 2.5 3.0 -Post Debridement (cm) - Width 8.0 8.8 8.8 -Post Debridement (cm) - Depth 0.8 0.6 0.4 -Total Square (Post) (cm) 8.00 22.00 26.40 -Area of Debridement (cm) - Length 1.0 2.5 3.0 -Area of Debridement (cm) - Width 8.0 8.8 8.8 -Total Square (Area) (cm) 8.00 22.00 26.40 -Tunneling No Yes Yes -Tunneling Position (O'clock) 7 7 -Tunneling Distance (cm) 8.7 6.8 -Undermining/Tunneling Yes Yes Yes -Undermining/Tunneling Starts (O'clock 2 12 12 ) -Undermining/Tunneling Ends (O'clock) 3 2 2 -Maximum Distance (cm) 3.3 2.6 2.4 -Undermining/Tunneling Starts #2 (O' 6 clock) -Undermining/Tunneling Ends #2 (O' 7 clock) -Maximum Distance #2 (cm) 5.1 -Circular Undermining No No No -Wound/Ulcer Outcome Not Healed Not Healed Not Healed -Ulcer Cleansing Rinsed/ Rinsed/ Rinsed/ Irrigated with Irrigated with Irrigated with Saline Saline Saline -Foul Odor after Cleansing No No No -Bioengineered Tissue No No No -Bleeding Controlled with Pressure Pressure Pressure -Treatment Response Procedure Procedure Procedure Tolerated Well Tolerated Well Tolerated Well -Offloading No No -Debridement - Subq, 1st 20sq cm Yes Yes Yes -Debridement, SubQ, ea addt'l 20sq cm 1 1 or part thereof Pain Scale: 0-10 Numeric Is Patient Pain Free? Yes Yes Yes WC - Nurse 3 - General Ulcer D/C NN Start: 04/27/22 13:05 Freq: Status: Active Protocol: Activity Type Activity Date Activity User E-sign Co-sign Detail Recorded Client Recorded Date Recorded By Document 04/27/22 14:16 AK [id number] 04/27/22 14:17 AK Document 05/08/22 15:06 DL [id number] 05/08/22 15:09 DL Edit Result 05/08/22 15:06 DL (1) [id number] 05/09/22 07:14 PL Document 05/11/22 14:27 AK [id number] 05/11/22 14:31 AK Document 05/11/22 15:16 BMF [id number] 05/11/22 15:19 BMF (1) #1 R knee - NPWT Application Charge NPWT </= 50 sq cm => NPWT </= 50 sq cm ($) => (disp) ($) 04/27/22 05/08/22 05/11/22 14:16 15:06 14:27 Wound Care Nurse 3 #1 R knee -Ulcer Cleansing Rinsed/ Soap and Water Soap and Water Irrigated with Saline -Foul Odor after Cleansing No No No -Negative Pressure Wound Therapy N/A Continue N/A -Setting (mmHg) 125 -Negative Pressure is Continuous -Primary Dressing Applied Aquacel AG 4x4 -Other Dressing ABD x2 -Primary Dressing Covered/Secured with Dry Gauze & Roll Gauze, Secured with Tape -Other Covering SNAP VAC -NPWT Application Charge NPWT </= 50 sq cm (disp) ($) -Aquacel AG 4x4 2 Right -Compression Wrap Calvin Wrap -Tubular Bandage Single Layer -Size of Tubigrip Used Size F -Size F ($) 1 Treatment Response Procedure Tolerated Well Vital Signs Temperature (97.8 F-99.1 F) 97.4 F L 97.2 F L Temperature Source Temporal Temporal Pulse Rate (60-100) 116 H Pulse Location Monitor Respiratory Rate (12-18) 18 Respiratory rate source Observation Blood Pressure (90/60-120/80) 156/100 H Blood Pressure Mean (mm Hg) 118 Source Monitor Pain Scale: 0-10 Numeric Is Patient Pain Free? Yes Yes Yes WC - Visit Discharge Discharge Condition Stable Stable Ambulatory Status Ambulatory, Ambulatory, Walker Walker Transportation Private Auto Private Auto Accompanied by Medication Reconcilliation completed & Yes provided to patient/care provider Clinical Summary of Care Provided Yes Notes: Dressing applied per Sujatha Jack RN today in clinic 05/11/22 15:16 Wound Care Nurse 3 #1 R knee -Ulcer Cleansing Rinsed/ Irrigated with Saline -Foul Odor after Cleansing No -Negative Pressure Wound Therapy Continue -Setting (mmHg) 125 -Negative Pressure is Continuous -Primary Dressing Applied -Other Dressing SNAP VAC APPLIED PER AK SIDE LASTER TACK -Primary Dressing Covered/Secured with -Other Covering -NPWT Application Charge NPWT & Debridement (nc ) -Aquacel AG 4x4 Right -Compression Wrap -Tubular Bandage -Size of Tubigrip Used -Size F ($) Treatment Response Procedure Tolerated Well Vital Signs Temperature (97.8 F-99.1 F) Temperature Source Pulse Rate (60-100) Pulse Location Respiratory Rate (12-18) Respiratory rate source Blood Pressure (90/60-120/80) Blood Pressure Mean (mm Hg) Source Pain Scale: 0-10 Numeric Is Patient Pain Free? Yes WC - Visit Discharge Discharge Condition Stable Ambulatory Status Ambulatory, Walker Transportation Private Auto Accompanied by Medication Reconcilliation completed & provided to patient/care provider Clinical Summary of Care Provided Notes: Assessment/Plan Assessment/Plan (1) Traumatic open wound of right lower leg with delayed healing: CODE(S): S81.801D - Unspecified open wound, right lower leg, subsequent encounter (2) Multiple sclerosis: CODE(S): G35 - Multiple sclerosis (3) Chronic anticoagulation: CODE(S): Z79.01 - senior care (current) use of anticoagulants PLAN: Plan Patient was evaluated at the wound center today, subcutaneous debridement was performed as previously documented. Wound culture obtained 04/27/22 which was positive for Staphylococcus haemolyticus and MRSE. Will start her on Doxycycline. Wound care - SNAP VAC to be applied and changed twice a week. Tubigrip up above her knee for compression. If SNAP vac becomes too full over the weekend, she needs to remove the vac and place Aquacel-Ag into the ulcer and cover with gauze daily. Due to the large tunnel at 7:00, will apply for a [employer]CI VAC to be applied 3 times per week, white foam in the deep tunnel at 7:00 at 150 mmHg suction. Encouraged increase protein intake to help with wound healing. Follow up Sunday for Nurse visit and to have SNAP VAC changed. Then follow up one week to see me. Call or come into to be seen if develop issues.
[2022-05-15 14:43] VITALS: BP 145/67; PULSE 65; RESP 20; TEMP 37.1; BMI 41.6
[2022-05-18 15:16] VITALS: BP 142/90; PULSE 95; RESP 18; TEMP 36.1; BMI 41.6
--- NOTE | 2022-05-18 16:36 | PCM.WC.PN ---
History of Present Illness Date of Service: 05/18/22 Chief Complaint: Non healing right knee wound History of Wound: Patient is a 61-year-old female who presents for follow-up following right knee. She fell on 04/03/2022 and required sutures. After the sutures removed her wound started to dehisce. She was to see her PCP, Dr. Duran, who referred her to the wound center. She also has a significant history of MS and she was just recently started on Ocrevus and received half a dose for her first infusion. She has had increased falls recently and she is now walking with a walker. She states that her clinic for management of her MS. Her other medical history is hypothyroidism, CKD stage III, TIA, PE, and DVT and is on blood thinners. She quit smoking 5 years ago. Wound care - Approved for wound VAC. Stop SNAP VAC and start VAC at 150 mmHg, white foam placed into the tunnel at 7 o'clock. VAC changes Sunday and . Wound culture obtained on 04/27/22 which is positive for Staphylococcus haemolyticus, MRSE. They will be treated with Doxycycline. Today she denies fever, chills, nausea, vomiting. She states her appetite is good. Progress of Wound: Right knee ulcer has improved. She continues to have a tunnel at around 1:00 and at tunnel at 7:00. The tunnel at 7:00 has not shown much improvement. Objective Data Objective Data Vital Signs: Vital Signs Temp Pulse Resp BP O2 Del Method 97 F L 95 18 142/90 H Room Air 05/18/22 15:16 05/18/22 15:16 05/18/22 15:16 05/18/22 15:16 05/18/22 15:16 Oxygen Delivery Method Room Air Weight: 282 lb Body Mass Index (BMI) 41.6 Lab / Micro Data Micro: Microbiology 04/27/22 13:50 Wound - Knee Gram Stain - Final 04/27/22 13:50 Wound - Knee Wound Culture - Final Staphylococcus haemolyticus Staphylococcus epidermidis 04/27/22 13:50 Wound - Knee Anaerobic Culture - Final No anaerobic bacteria isolated. Charges/Coding Procedures Integumentary 111xxx-113xx: 46225 Gretel subq tissue 20 sq cm/< Add On Codes: 50112 Gretel subq tissue add-on Physical Exam Const alert and oriented x3 General Appearance: cooperative HEENT normocephalic Resp normal respiratory effort Cardio regular rate Peripheral Pulses: dorsalis pedis pulses present Extremity normal capillary refill Extremity Narrative: +1-+2 edema right leg. Walks with a walker. Skin Wound Narrative: Right knee laceration/ulcer has improved this week. She continues to have the two tunnels and the one at 7 o'clock has not shown much improvement using the SNAP vac. The tunnel at 12-1 o'clock is improvement. Neuro oriented x3 and moves all extremities Psych mental status grossly normal Debridement Note Debridement Note Wound debrided: knee ulcer Laterality: Right Wound Grade/Stage: Stage IV Type of Debridement: Excisional debridement Anesthesia Used: 4% Lidocaine Solution and 5% Lidocaine Gel Depth: Down to and including healthy tissue and in the subcutaneous layer Percentage of wound debrided: 100 Instrument Used: 7mm curette Tissue Removed: Devitalized tissue and slough Severity: Fat Layer Exposed Amount of bleeding with debridement: Mild Bleeding Controlled with: Pressure and Compression and gauze Patient tolerated procedure: Patient tolerated procedure well Post-Debridement Measurements and Additional Note: Post-Debridement Measurements/Treatment - Nurse 1 - General Ulcer Assessment Start: 04/27/22 13:05 Freq: Status: Active Protocol: ATA Activity Type Activity Date Activity User E-sign Co-sign Detail Recorded Client Recorded Date Recorded By Document 04/27/22 13:06 [place] [id number] 04/27/22 13:18 [place] Document 05/04/22 14:20 [facility] [id number] 05/04/22 14:33 [facility] Document 05/08/22 15:06 DL [id number] 05/08/22 15:09 DL Document 05/11/22 14:27 [place] [id number] 05/11/22 14:31 [place] Document 05/15/22 14:43 DL [id number] 05/15/22 15:09 DL Document 05/18/22 15:16 RI [id number] 05/18/22 15:20 RI 04/27/22 05/04/22 05/08/22 13:06 14:20 15:06 - Today's Visit Information Type of service Initial Visit Follow-up Visit Nurse-only (Physician/DATA OFFICER Visit ) Arrival Mode Ambulatory Ambulatory, Ambulatory Walker Transfer Assistance None None Accompanied by Patient Identification Verified (Name & Yes Yes Yes ) Patient Requires Transmission-Based No No No Precautions Safety Precautions NA Height and Weight Height 5 ft 9 in Weight 282 lb Weight in Pounds 282.0 lbs Body Mass Index (BMI) 41.6 41.6 41.6 BMI Classification Obese Obese Obese BSA - Holli 2.39 Vital Signs Temperature (97.8 F-99.1 F) 97.2 F L 96.8 F L 97.4 F L Temperature Source Temporal Temporal Temporal Pulse Rate (60-100) 84 80 Pulse Location Monitor Monitor Respiratory Rate (12-18) 16 18 Respiratory rate source Observation Observation Oxygen Delivery Method Room Air Blood Pressure (90/60-120/80) 173/84 H 157/87 H Blood Pressure Mean (mm Hg) 113 110 Source Monitor Monitor Position Sitting Blood Pressure Location Left Arm History Since Last Visit- (Skip if this is Patient's initial visit) Have you changed medications since your No No No last visit? Any new allergies or adverse reactions No No No Had a fall/change in ADL's that may No No No increase risk of falls Signs or symptoms of abuse and/or No No No neglect since last visit Have you been in the hospital since your No No No last visit? Has dressing in place as prescribed Yes Yes Yes Has compression in place as prescribed Yes Yes Yes Has offloadiing in place as prescribed Yes N/A N/A Experienced any changes in pain level or No No No management Left Footwear Regular Shoe Regular Shoe Right Footwear Regular Shoe Regular Shoe Pain Scale: 0-10 Numeric Is Patient Pain Free? Yes Yes Yes 05/11/22 05/15/22 05/18/22 14:27 14:43 15:16 WC - Today's Visit Information Type of service Follow-up Visit Nurse-only Follow-up Visit (Physician/DATA OFFICER Visit (Physician/DATA OFFICER ) ) Arrival Mode Ambulatory, Ambulatory Ambulatory, Walker Walker Transfer Assistance None Accompanied by Patient Identification Verified (Name & Yes Yes ) Patient Requires Transmission-Based No No Precautions Safety Precautions Height and Weight Height Weight Weight in Pounds Body Mass Index (BMI) 41.6 41.6 41.6 BMI Classification Obese Obese Obese BSA - [place] Vital Signs Temperature (97.8 F-99.1 F) 97.2 F L 98.7 F 97 F L Temperature Source Temporal Temporal Temporal Pulse Rate (60-100) 116 H 65 95 Pulse Location Monitor Monitor Monitor Respiratory Rate (12-18) 20 H 18 Respiratory rate source Observation Observation Oxygen Delivery Method Room Air Blood Pressure (90/60-120/80) 156/100 H 145/67 H 142/90 H Blood Pressure Mean (mm Hg) 118 93 107 Source Monitor Monitor Monitor Position Sitting Blood Pressure Location Right Arm History Since Last Visit- (Skip if this is Patient's initial visit) Have you changed medications since your No No last visit? Any new allergies or adverse reactions No No Had a fall/change in ADL's that may No No increase risk of falls Signs or symptoms of abuse and/or No No neglect since last visit Have you been in the hospital since your No No last visit? Has dressing in place as prescribed Yes Yes Yes Has compression in place as prescribed Yes Yes Yes Has offloadiing in place as prescribed N/A N/A Yes Experienced any changes in pain level or No No Yes management Left Footwear Regular Shoe Regular Shoe Right Footwear Regular Shoe Regular Shoe Pain Scale: 0-10 Numeric Is Patient Pain Free? Yes Yes Yes WC - Nurse 1 - General Ulcer Measurement Start: 04/27/22 13:05 Freq: Status: Active Protocol: Activity Type Activity Date Activity User E-sign Co-sign Detail Recorded Client Recorded Date Recorded By Document 04/27/22 13:06 AK [id number] 04/27/22 13:18 AK Document 05/04/22 14:20 BMF [id number] 05/04/22 14:33 BMF Document 05/08/22 15:06 DL [id number] 05/08/22 15:09 DL Document 05/11/22 14:31 AK [id number] 05/11/22 14:34 AK Document 05/15/22 14:43 DL [id number] 05/15/22 15:09 DL Document 05/18/22 15:16 MT [id number] 05/18/22 15:20 MT 04/27/22 05/04/22 05/08/22 13:06 14:20 15:06 Wound Center Nurse 1 #1 R knee -Combined with other wound No No -Current Size (cm) - Length 0.6 2.6 -Current Size (cm) - Width 10.5 8.5 -Current Size (cm) - Depth 0.5 0.3 -Total Square Cm 6.30 22.10 -Date of Last Picture (Recall this 04/27/22 field) -Photo Taken Yes No No -Epithelialization None Present None Present -Tunneling No No -Tunneling Position (O'clock) -Tunneling Distance (cm) -Tunneling Position #2 (O'clock) -Tunneling Distance #2 (cm) -Undermining/Tunneling No Yes -Undermining/Tunneling Starts (O'clock 8 ) -Undermining/Tunneling Ends (O'clock) 5 -Maximum Distance (cm) 7 -Undermining/Tunneling Starts #2 (O' 1 clock) -Undermining/Tunneling Ends #2 (O' 2 clock) -Maximum Distance #2 (cm) 1.7 -Circular Undermining No No -Change in Wound Grade/Stage No -Exudate Amt Medium Large Large -Exudate Type Serosanguineous Sanguineous Serosanguineous -Wound Margin Distinct, Distinct, Thickened & Outline Outline Rolled Under Attached Attached -Granulation Amt None Present (0 Medium (34-66%) Medium (34-66%) %) -Granulation Quality N/A Red [place],Red -Slough/Fibrin Yes Yes -Necrosis Amt Large (67-100%) Medium (34-66%) Medium (34-66%) -Necrotic Tissue Type Adherent Slough Adherent Slough Adherent Slough -Structure Exposed N/A N/A -Texture (Emmy-wound Skin Appearance) Assessed, Assessed, Scarring Scarring Localized Edema ,Scarring -Moisture (Emmy-wound Skin Appearance) No Abnormality, Assessed,Dry/ No Abnormality Assessed Scaly -Color (Emmy-wound Skin Appearance) No Abnormality, Assessed No Abnormality Assessed -Temperature (Emmy-wound Skin No Abnormality No Abnormality No Abnormality Appearance) (Pt Warm) (Pt Warm) (Pt Warm) -Tenderness on Palpation (Emmy-wound No No Skin Appearance) -Ulcer Cleansing Rinsed/ Rinsed/ Soap and Water Irrigated with Irrigated with Saline Saline -Foul Odor after Cleansing No No No -Anesthetic Used 5% Lidocaine 4% Lidocaine Gel Solution Lower Limb Edema Present No Yes Right Calf (cm) 46 43.7 Right Ankle (cm) 25 26 Left Calf (cm) 44.5 Left Ankle (cm) 23 05/11/22 05/15/22 05/18/22 14:31 14:43 15:16 Wound Center Nurse 1 #1 R knee -Combined with other wound -Current Size (cm) - Length 3.3 2 -Current Size (cm) - Width 8.4 8 -Current Size (cm) - Depth 0.4 0.5 -Total Square Cm 27.72 16 -Date of Last Picture (Recall this field) -Photo Taken No -Epithelialization Small 1-33% -Tunneling No Yes -Tunneling Position (O'clock) 7 7 -Tunneling Distance (cm) 2.8 2.3 -Tunneling Position #2 (O'clock) 1 2 -Tunneling Distance #2 (cm) 1 1.0 -Undermining/Tunneling Yes -Undermining/Tunneling Starts (O'clock 1 ) -Undermining/Tunneling Ends (O'clock) 2 -Maximum Distance (cm) 1.3 -Undermining/Tunneling Starts #2 (O' 7 clock) -Undermining/Tunneling Ends #2 (O' 9 clock) -Maximum Distance #2 (cm) 6.6 -Circular Undermining No -Change in Wound Grade/Stage No -Exudate Amt Large Medium Small -Exudate Type Serosanguineous Serosanguineous Serosanguineous -Wound Margin Distinct, Thickened & Flat & Intact Outline Rolled Under Attached -Granulation Amt Large (67-100%) Large (67-100%) Large (67-100%) -Granulation Quality [place],Red Red Pale,[place] -Slough/Fibrin Yes -Necrosis Amt Medium (34-66%) None Present (0 Small (1-33%) %) -Necrotic Tissue Type Adherent Slough Adherent Slough -Structure Exposed N/A N/A -Texture (Emmy-wound Skin Appearance) No Abnormality, Scarring Assessed Assessed -Moisture (Emmy-wound Skin Appearance) No Abnormality, Assessed Assessed -Color (Emmy-wound Skin Appearance) No Abnormality, No Abnormality, Assessed Assessed Hemosiderin Staining -Temperature (Emmy-wound Skin No Abnormality No Abnormality No Abnormality Appearance) (Pt Warm) (Pt Warm) (Pt Warm) -Tenderness on Palpation (Emmy-wound No No Skin Appearance) -Ulcer Cleansing Soap and Water Soap and Water Soap and Water -Foul Odor after Cleansing No No No -Anesthetic Used 4% Lidocaine 5% Lidocaine Solution Gel Lower Limb Edema Present No NA Right Calf (cm) Right Ankle (cm) Left Calf (cm) Left Ankle (cm) WC - Nurse 2 - General Ulcer CM Notes Start: 04/27/22 13:05 Freq: Status: Active Protocol: Activity Type Activity Date Activity User E-sign Co-sign Detail Recorded Client Recorded Date Recorded By Document 04/27/22 15:17 PL [id number] 04/27/22 15:19 PL Document 05/04/22 14:55 MW [id number] 05/04/22 15:08 MW Document 05/11/22 15:00 MW [id number] 05/11/22 15:04 MW Document 05/18/22 15:59 PL [id number] 05/18/22 16:01 PL 04/27/22 05/04/22 05/11/22 15:17 14:55 15:00 Wound Center Nurse 2 #1 R knee -Time 13:40 14:55 15:02 -Correct Patient Yes Yes Yes -Correct Side, Site, Position Yes Yes Yes -Correct Procedure Yes Yes Yes -Procedure Performed Yes Yes Yes -Type of Procedure Debridement Debridement Debridement -Clinical Debridement Subcutaneous Subcutaneous Subcutaneous -Tissue Removed Subcutaneous Subcutaneous Subcutaneous -Post Debridement (cm) - Length 1.0 2.5 3.0 -Post Debridement (cm) - Width 8.0 8.8 8.8 -Post Debridement (cm) - Depth 0.8 0.6 0.4 -Total Square (Post) (cm) 8.00 22.00 26.40 -Area of Debridement (cm) - Length 1.0 2.5 3.0 -Area of Debridement (cm) - Width 8.0 8.8 8.8 -Total Square (Area) (cm) 8.00 22.00 26.40 -Tunneling No Yes Yes -Tunneling Position (O'clock) 7 7 -Tunneling Distance (cm) 8.7 6.8 -Undermining/Tunneling Yes Yes Yes -Undermining/Tunneling Starts (O'clock 2 12 12 ) -Undermining/Tunneling Ends (O'clock) 3 2 2 -Maximum Distance (cm) 3.3 2.6 2.4 -Undermining/Tunneling Starts #2 (O' 6 clock) -Undermining/Tunneling Ends #2 (O' 7 clock) -Maximum Distance #2 (cm) 5.1 -Circular Undermining No No No -Wound/Ulcer Outcome Not Healed Not Healed Not Healed -Ulcer Cleansing Rinsed/ Rinsed/ Rinsed/ Irrigated with Irrigated with Irrigated with Saline Saline Saline -Foul Odor after Cleansing No No No -Bioengineered Tissue No No No -Bleeding Controlled with Pressure Pressure Pressure -Treatment Response Procedure Procedure Procedure Tolerated Well Tolerated Well Tolerated Well -Offloading No No -Debridement - Subq, 1st 20sq cm Yes Yes Yes -Debridement, SubQ, ea addt'l 20sq cm 1 1 or part thereof Pain Scale: 0-10 Numeric Is Patient Pain Free? Yes Yes Yes 05/18/22 15:59 Wound Center Nurse 2 #1 R knee -Time 15:19 -Correct Patient Yes -Correct Side, Site, Position Yes -Correct Procedure Yes -Procedure Performed Yes -Type of Procedure Debridement -Clinical Debridement Subcutaneous -Tissue Removed Subcutaneous -Post Debridement (cm) - Length 3.5 -Post Debridement (cm) - Width 8.4 -Post Debridement (cm) - Depth 0.3 -Total Square (Post) (cm) 29.40 -Area of Debridement (cm) - Length 3.5 -Area of Debridement (cm) - Width 8.4 -Total Square (Area) (cm) 29.40 -Tunneling Yes -Tunneling Position (O'clock) 7 -Tunneling Distance (cm) 8.3 -Undermining/Tunneling Yes -Undermining/Tunneling Starts (O'clock 12 ) -Undermining/Tunneling Ends (O'clock) 2 -Maximum Distance (cm) 2.5 -Undermining/Tunneling Starts #2 (O' clock) -Undermining/Tunneling Ends #2 (O' clock) -Maximum Distance #2 (cm) -Circular Undermining No -Wound/Ulcer Outcome Not Healed -Ulcer Cleansing Rinsed/ Irrigated with Saline -Foul Odor after Cleansing No -Bioengineered Tissue No -Bleeding Controlled with Pressure -Treatment Response Procedure Tolerated Well -Offloading -Debridement - Subq, 1st 20sq cm Yes -Debridement, SubQ, ea addt'l 20sq cm 1 or part thereof Pain Scale: 0-10 Numeric Is Patient Pain Free? Yes WC - Nurse 3 - General Ulcer D/C NN Start: 04/27/22 13:05 Freq: Status: Active Protocol: Activity Type Activity Date Activity User E-sign Co-sign Detail Recorded Client Recorded Date Recorded By Document 04/27/22 14:16 AK [id number] 04/27/22 14:17 AK Document 05/08/22 15:06 DL [id number] 05/08/22 15:09 DL Edit Result 05/08/22 15:06 DL (1) [id number] 05/09/22 07:14 PL Document 05/11/22 14:27 AK [id number] 05/11/22 14:31 AK Document 05/11/22 15:16 BMF [id number] 05/11/22 15:19 BMF Document 05/15/22 14:43 DL [id number] 05/15/22 15:09 DL Document 05/18/22 15:40 MT [id number] 05/18/22 15:41 MT (1) #1 R knee - NPWT Application Charge NPWT </= 50 sq cm => NPWT </= 50 sq cm ($) => (disp) ($) 04/27/22 05/08/22 05/11/22 14:16 15:06 14:27 Wound Care Nurse 3 #1 R knee -Ulcer Cleansing Rinsed/ Soap and Water Soap and Water Irrigated with Saline -Foul Odor after Cleansing No No No -Negative Pressure Wound Therapy N/A Continue N/A -Setting (mmHg) 125 -Negative Pressure is Continuous -Regranex (If Applicable) -Primary Dressing Applied Aquacel AG 4x4 -Other Dressing ABD x2 -Primary Dressing Covered/Secured with Dry Gauze & Roll Gauze, Secured with Tape -Other Covering SNAP VAC -NPWT Application Charge NPWT </= 50 sq cm (disp) ($) -Aquacel AG 4x4 2 Right -Compression Wrap Calvin Wrap -Tubular Bandage Single Layer -Size of Tubigrip Used Size F -Size E ($) -Size F ($) 1 Treatment Response Procedure Tolerated Well Vital Signs Temperature (97.8 F-99.1 F) 97.4 F L 97.2 F L Temperature Source Temporal Temporal Pulse Rate (60-100) 116 H Pulse Location Monitor Respiratory Rate (12-18) 18 Respiratory rate source Observation Blood Pressure (90/60-120/80) 156/100 H Blood Pressure Mean (mm Hg) 118 Source Monitor Pain Scale: 0-10 Numeric Is Patient Pain Free? Yes Yes Yes WC - Visit Discharge Discharge Condition Stable Stable Ambulatory Status Ambulatory, Ambulatory, Walker Walker Transportation Private Auto Private Auto Accompanied by Medication Reconcilliation completed & Yes provided to patient/care provider Clinical Summary of Care Provided Yes Notes: Dressing applied per Sujatha Jack RN today in clinic 05/11/22 05/15/22 05/18/22 15:16 14:43 15:40 Wound Care Nurse 3 #1 R knee -Ulcer Cleansing Rinsed/ Soap and Water Rinsed/ Irrigated with Irrigated with Saline Saline -Foul Odor after Cleansing No No No -Negative Pressure Wound Therapy Continue Continue Start -Setting (mmHg) 125 125 150 -Negative Pressure is Continuous Continuous Continuous -Regranex (If Applicable) Start -Primary Dressing Applied -Other Dressing SNAP VAC APPLIED PER [employer] -Primary Dressing Covered/Secured with -Other Covering -NPWT Application Charge NPWT & NPWT </= 50 sq NPWT & Debridement (nc cm (disp) ($) Debridement (nc ) ) -Aquacel AG 4x4 Right -Compression Wrap -Tubular Bandage Single Layer -Size of Tubigrip Used Size E -Size E ($) 1 -Size F ($) Treatment Response Procedure Procedure Tolerated Well Tolerated Well Vital Signs Temperature (97.8 F-99.1 F) 98.7 F Temperature Source Temporal Pulse Rate (60-100) 65 Pulse Location Monitor Respiratory Rate (12-18) 20 H Respiratory rate source Observation Blood Pressure (90/60-120/80) 145/67 H Blood Pressure Mean (mm Hg) 93 Source Monitor Pain Scale: 0-10 Numeric Is Patient Pain Free? Yes Yes Yes WC - Visit Discharge Discharge Condition Stable Stable Stable Ambulatory Status Ambulatory, Ambulatory Ambulatory, Walker Walker Transportation Private Auto Private Auto Private Auto Accompanied by Medication Reconcilliation completed & No provided to patient/care provider Clinical Summary of Care Provided Yes Notes: pt verbalized understanding of wound vac care. also at bedside learning education on wound vac. 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 Wound culture obtained 04/27/22 which was positive for Staphylococcus haemolyticus and MRSE. Will start her on Doxycycline. Wound care - Approved for [employer] wound VAC. Stop SNAP VAC and start VAC at 150 mmHg, white foam placed into the tunnel at 7 o'clock. VAC changes Sunday and . Tubigrip up above her knee for compression. Encouraged increase protein intake to help with wound healing. If the tunnel at 7 o'clock doesn't start showing improvement using the VAC, she will need to be referred to have an operative debridement to unroof the tunnels. Follow up Sunday for Nurse visit and to have VAC dressing changed. Then follow up one week to see me. Call or come into to be seen if develop issues.
[2022-05-22 15:10] VITALS: BP 153/91; PULSE 83; RESP 16; TEMP 36.2; BMI 41.6
== END 2022-05-24 23:59 | disposition home or self-care (01) ==
LOC: WC 15:00
PROVIDERS: PCP Internal Medicine; Visit Provider Nurse Practitioner Family
DX: S81.011D Laceration without foreign body, right knee, subsequent encounter (principal); G35 Multiple sclerosis; N18.30 Chronic kidney disease, stage 3 unspecified; I12.9 Hypertensive chronic kidney disease with stage 1 through stage 4 chronic kidney disease, or unspecified chronic kidney disease; E78.5 Hyperlipidemia, unspecified; Z87.891 Personal history of nicotine dependence; Z79.01 Long term (current) use of anticoagulants; Z86.718 Personal history of other venous thrombosis and embolism; R29.6 Repeated falls; Z86.73 Personal history of transient ischemic attack (TIA), and cerebral infarction without residual deficits
CPT/HCPCS: 11042; 11045; 87070; 87075; 87186; 87205; 97605; 97607; 99213; G0463

== ENCOUNTER 2022-06-21 14:00 | Outpatient (RCR) | payer MEDICARE, SELFPAY ==
[2022-05-25 00:42] VITALS: BP 153/91; PULSE 83; RESP 16; TEMP 36.2; BMI 41.6
[2022-05-25 14:11] VITALS: BMI 41.6
--- NOTE | 2022-05-25 14:55 | PCM.WC.PN ---
History of Present Illness Date of Service: 05/25/22 Chief Complaint: Non healing right knee wound History of Wound: Patient is a 61-year-old female who presents for follow-up following right knee. She fell on 04/03/2022 and required sutures. After the sutures removed her wound started to dehisce. She was to see her PCP, Dr. Duran, who referred her to the wound center. She also has a significant history of MS and she was just recently started on Ocrevus and received half a dose for her first infusion. She has had increased falls recently and she is now walking with a walker. She states that her clinic for management of her MS. Her other medical history is hypothyroidism, CKD stage III, TIA, PE, and DVT and is on blood thinners. She quit smoking 5 years ago. Wound care - Wound VAC at 150 mmHg, white foam placed into the tunnel at 7 o'clock. VAC changes Sunday and . Wound culture obtained on 04/27/22 which is positive for Staphylococcus haemolyticus, MRSE. They will be treated with Doxycycline. Today she denies fever, chills, nausea, vomiting. She states her appetite is good. Progress of Wound: Right knee ulcer is much improved. The tunnels are much improved. Objective Data Objective Data Vital Signs: Vital Signs Temp Pulse Resp BP 97.2 F L 83 16 153/91 H 05/25/22 00:42 05/25/22 00:42 05/25/22 00:42 05/25/22 00:42 Weight: 282 lb Body Mass Index (BMI) 41.6 Charges/Coding Procedures Integumentary 111xxx-113xx: 07270 Gretel subq tissue 20 sq cm/< Physical Exam Const alert and oriented x3 General Appearance: cooperative HEENT normocephalic Resp normal respiratory effort Cardio regular rate Peripheral Pulses: dorsalis pedis pulses present Extremity normal capillary refill Extremity Narrative: +1-+2 edema right leg. Walks with a walker. Skin Wound Narrative: Right knee laceration/ulcer has improved this week. She continues to have the two tunnels and they have shown much improvement this week with the I wound VAC. Neuro oriented x3 and moves all extremities Psych mental status grossly normal Debridement Note Debridement Note Wound debrided: knee ulcer Laterality: Right Wound Grade/Stage: Stage IV Type of Debridement: Excisional debridement Anesthesia Used: 4% Lidocaine Solution and 5% Lidocaine Gel Depth: Down to and including healthy tissue and in the subcutaneous layer Percentage of wound debrided: 100 Instrument Used: 7mm curette Tissue Removed: Devitalized tissue and slough Severity: Fat Layer Exposed Amount of bleeding with debridement: Mild Bleeding Controlled with: Pressure and Compression and gauze Patient tolerated procedure: Patient tolerated procedure well Post-Debridement Measurements and Additional Note: Post-Debridement Measurements/Treatment WC - Nurse 1 - General Ulcer Assessment Start: 05/25/22 14:11 Freq: Status: Active Protocol: ATA Activity Type Activity Date Activity User E-sign Co-sign Detail Recorded Client Recorded Date Recorded By Document 05/25/22 14:11 VA [id number] 05/25/22 14:18 VA 05/25/22 14:11 Height and Weight Body Mass Index (BMI) 41.6 BMI Classification Obese Pain Scale: 0-10 Numeric Is Patient Pain Free? Yes WC - Nurse 1 - General Ulcer Measurement Start: 05/25/22 14:11 Freq: Status: Active Protocol: Activity Type Activity Date Activity User E-sign Co-sign Detail Recorded Client Recorded Date Recorded By Document 05/25/22 14:11 VA [id number] 05/25/22 14:18 VA 05/25/22 14:11 Wound Center Nurse 1 #1 R knee -Current Size (cm) - Length 1.5 -Current Size (cm) - Width 8.0 -Current Size (cm) - Depth 0.2 -Total Square Cm 12.00 -Tunneling Yes -Tunneling Position (O'clock) 2 -Tunneling Distance (cm) 1.4 -Tunneling Position #2 (O'clock) 7 -Tunneling Distance #2 (cm) 2.6 -Exudate Amt Small -Exudate Type Sanguineous -Wound Margin Flat & Intact -Granulation Amt Large (67-100%) -Granulation Quality Pale,[place],Red -Slough/Fibrin No -Necrosis Amt None Present (0 %) -Texture (Emmy-wound Skin Appearance) Assessed -Moisture (Emmy-wound Skin Appearance) Assessed -Color (Emmy-wound Skin Appearance) Assessed -Temperature (Emmy-wound Skin No Abnormality Appearance) (Pt Warm) -Tenderness on Palpation (Emmy-wound No Skin Appearance) -Ulcer Cleansing Rinsed/ Irrigated with Saline -Foul Odor after Cleansing No -Anesthetic Used 4% Lidocaine Solution Right Calf (cm) 44 Right Ankle (cm) 20 WC - Nurse 2 - General Ulcer CM Notes Start: 05/25/22 14:11 Freq: Status: Active Protocol: Activity Type Activity Date Activity User E-sign Co-sign Detail Recorded Client Recorded Date Recorded By Document 05/25/22 14:32 MW [id number] 05/25/22 14:39 MW 05/25/22 14:32 Wound Center Nurse 2 #1 R knee -Time 14:33 -Correct Patient Yes -Correct Side, Site, Position Yes -Correct Procedure Yes -Procedure Performed Yes -Type of Procedure Debridement -Clinical Debridement Subcutaneous -Tissue Removed Subcutaneous -Post Debridement (cm) - Length 2.5 -Post Debridement (cm) - Width 7.3 -Post Debridement (cm) - Depth 0.3 -Total Square (Post) (cm) 18.25 -Area of Debridement (cm) - Length 2.5 -Area of Debridement (cm) - Width 7.3 -Total Square (Area) (cm) 18.25 -Tunneling Yes -Tunneling Position (O'clock) 2 -Tunneling Distance (cm) 1.0 -Tunneling Position #2 (O'clock) 7 -Tunneling Distance #2 (cm) 7.0 -Undermining/Tunneling No -Circular Undermining No -Wound/Ulcer Outcome Not Healed -Ulcer Cleansing Rinsed/ Irrigated with Saline -Foul Odor after Cleansing No -Bioengineered Tissue No -Bleeding Controlled with Pressure -Treatment Response Procedure Tolerated Well -Offloading No -Debridement - Subq, 1st 20sq cm Yes Pain Scale: 0-10 Numeric Is Patient Pain Free? Yes WC - Nurse 3 - General Ulcer D/C NN Start: 05/25/22 14:11 Freq: Status: Active Protocol: Activity Type Activity Date Activity User E-sign Co-sign Detail Recorded Client Recorded Date Recorded By Document 05/25/22 14:27 MT [id number] 05/25/22 14:33 MT Edit Result 05/25/22 14:27 MT (1) [id number] 05/25/22 14:37 MT (1) Left - Compression Wrap => Calvin Wrap Right - Compression Wrap => Calvin Wrap 05/25/22 14:27 Wound Care Nurse 3 #1 R knee -Ulcer Cleansing Rinsed/ Irrigated with Saline -Primary Dressing Applied Optilok 6.5x10, Promogran Guerda Matter -Primary Dressing Covered/Secured with Dry Gauze & Roll Gauze, Secured with Tape -Optilok 6.5x10 1 -Promogran Guerda Matter 1 Left -Compression Wrap Calvin Wrap Right -Compression Wrap Calvin Wrap Pain Scale: 0-10 Numeric Is Patient Pain Free? Yes WC - Visit Discharge Discharge Condition Stable Ambulatory Status Ambulatory, Wheelchair Transportation Private Auto Medication Reconcilliation completed & No provided to patient/care provider Clinical Summary of Care Provided Yes Assessment/Plan Assessment/Plan (1) Traumatic open wound of right lower leg with delayed healing: CODE(S): S81.801D - Unspecified open wound, right lower leg, subsequent encounter (2) Multiple sclerosis: CODE(S): G35 - Multiple sclerosis (3) Chronic anticoagulation: CODE(S): Z79.01 - intermediate (current) use of anticoagulants PLAN: Plan Patient was evaluated at the wound center today, subcutaneous debridement was performed as previously documented. Wound culture obtained 04/27/22 which was positive for Staphylococcus haemolyticus and MRSE. Completed Doxycycline. Wound care - Wound VAC at 150 mmHg, white foam placed into the tunnel at 7 o'clock. VAC changes Sunday and . Tubigrip up above her knee for compression. Encouraged increase protein intake to help with wound healing. The 7 o'clock tunnel is showing improvement, will continue the wound VAC. Will monitor this area closely. Follow up Sunday for Nurse visit and to have VAC dressing changed. Then follow up one week to see me. Call or come into to be seen if develop issues.
[2022-05-30 10:35] VITALS: BP 142/69; PULSE 77; TEMP 36.1; BMI 41.6
[2022-06-01 14:25] VITALS: BP 126/62; PULSE 62; TEMP 36.2; BMI 41.6
--- NOTE | 2022-06-01 16:37 | PCM.WC.PN ---
History of Present Illness Date of Service: 06/01/22 Chief Complaint: Non healing right knee wound History of Wound: Patient is a 61-year-old female who presents for follow-up following right knee. She fell on 04/03/2022 and required sutures. After the sutures removed her wound started to dehisce. She was to see her PCP, Dr. Duran, who referred her to the wound center. She also has a significant history of MS and she was just recently started on Ocrevus and received half a dose for her first infusion. She has had increased falls recently and she is now walking with a walker. She states that her clinic for management of her MS. Her other medical history is hypothyroidism, CKD stage III, TIA, PE, and DVT and is on blood thinners. She quit smoking 5 years ago. Wound care - Wound VAC at 150 mmHg, white foam placed into the tunnel at 7 o'clock. VAC changes Sunday and . Wound culture obtained on 04/27/22 which is positive for Staphylococcus haemolyticus, MRSE. They will be treated with Doxycycline. Today she denies fever, chills, nausea, vomiting. She states her appetite is good. Progress of Wound: Right knee ulcer is much improved using the wound vac. She continues to have a large tunnel at 7 o'clock that has made minimal change. Objective Data Objective Data Vital Signs: Vital Signs Temp Pulse Resp BP 97.2 F L 62 16 126/62 H 06/01/22 14:25 06/01/22 14:25 05/25/22 00:42 06/01/22 14:25 Weight: 282 lb Body Mass Index (BMI) 41.6 Charges/Coding Procedures Integumentary 111xxx-113xx: 06871 Gretel subq tissue 20 sq cm/< Physical Exam Const alert and oriented x3 General Appearance: cooperative HEENT normocephalic Resp normal respiratory effort Cardio regular rate Peripheral Pulses: dorsalis pedis pulses present Extremity normal capillary refill Extremity Narrative: +1 edema right leg. Skin Wound Narrative: Right knee laceration/ulcer has greatly improved using the wound VAC. She continues to have the two tunnels, the one at 2 o'clock is now just undermining, the one at 7 o'clock is not making much progress. Neuro oriented x3 and moves all extremities Psych mental status grossly normal Debridement Note Debridement Note Wound debrided: knee ulcer Laterality: Right Wound Grade/Stage: Stage III Type of Debridement: Excisional debridement Anesthesia Used: 4% Lidocaine Solution and 5% Lidocaine Gel Depth: Down to and including healthy tissue and in the subcutaneous layer Percentage of wound debrided: 100 Instrument Used: 7mm curette Tissue Removed: Devitalized tissue and slough Severity: Fat Layer Exposed Amount of bleeding with debridement: Mild Bleeding Controlled with: Pressure and Compression and gauze Patient tolerated procedure: Patient tolerated procedure well Post-Debridement Measurements and Additional Note: Post-Debridement Measurements/Treatment - Nurse 1 - General Ulcer Assessment Start: 05/25/22 14:11 Freq: Status: Active Protocol: ALPESH.CARLEEN Activity Type Activity Date Activity User E-sign Co-sign Detail Recorded Client Recorded Date Recorded By Document 05/25/22 14:11 [place] [id number] 05/25/22 14:18 TX Document 05/30/22 10:35 GA [id number] 05/30/22 10:37 GA Document 06/01/22 14:25 GA [id number] 06/01/22 14:27 GA 05/25/22 05/30/22 06/01/22 14:11 10:35 14:25 - Today's Visit Information Type of service Nurse-only 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 ) Arrival Mode Ambulatory Ambulatory Patient Identification Verified (Name & Yes Yes ) Patient Requires Transmission-Based No No Precautions Safety Precautions NA NA Height and Weight Body Mass Index (BMI) 41.6 41.6 41.6 BMI Classification Obese Obese Obese Vital Signs Temperature (97.8 F-99.1 F) 96.9 F L 97.2 F L Temperature Source Temporal Temporal Pulse Rate (60-100) 77 62 Pulse Location Monitor Monitor Blood Pressure (90/60-120/80) 142/69 H 126/62 H Blood Pressure Mean (mm Hg) 93 83 Source Monitor Monitor History Since Last Visit- (Skip if this is Patient's initial visit) Have you changed medications since your No No last visit? Any new allergies or adverse reactions No No Had a fall/change in ADL's that may No No increase risk of falls Signs or symptoms of abuse and/or No No neglect since last visit Have you been in the hospital since your No No last visit? Has dressing in place as prescribed Yes Yes Has compression in place as prescribed Yes Yes Has offloadiing in place as prescribed N/A N/A Experienced any changes in pain level or No No management Left Footwear Regular Shoe Regular Shoe Right Footwear Regular Shoe Regular Shoe Pain Scale: 0-10 Numeric Is Patient Pain Free? Yes Yes Yes WC - Nurse 1 - General Ulcer Measurement Start: 05/25/22 14:11 Freq: Status: Active Protocol: Activity Type Activity Date Activity User E-sign Co-sign Detail Recorded Client Recorded Date Recorded By Document 05/25/22 14:11 [place] [id number] 05/25/22 14:18 MT Document 06/01/22 14:25 AK [id number] 06/01/22 14:27 AK 05/25/22 06/01/22 14:11 14:25 Wound Center Nurse 1 #1 R knee -Combined with other wound No -Current Size (cm) - Length 1.5 2 -Current Size (cm) - Width 8.0 6 -Current Size (cm) - Depth 0.2 0.1 -Total Square Cm 12.00 12 -Photo Taken No -Epithelialization None Present -Tunneling Yes No -Tunneling Position (O'clock) 2 -Tunneling Distance (cm) 1.4 -Tunneling Position #2 (O'clock) 7 -Tunneling Distance #2 (cm) 2.6 -Undermining/Tunneling No -Circular Undermining No -Change in Wound Grade/Stage No -Exudate Amt Small Large -Exudate Type Sanguineous Serosanguineous -Wound Margin Flat & Intact Distinct, Outline Attached -Granulation Amt Large (67-100%) Large (67-100%) -Granulation Quality Pale,[place],Red [place],Red -Slough/Fibrin No Yes -Necrosis Amt None Present (0 Small (1-33%) %) -Necrotic Tissue Type Adherent Slough -Structure Exposed N/A -Texture (Emmy-wound Skin Appearance) Assessed Assessed, Scarring -Moisture (Emmy-wound Skin Appearance) Assessed No Abnormality, Assessed -Color (Emmy-wound Skin Appearance) Assessed No Abnormality, Assessed -Temperature (Emmy-wound Skin No Abnormality No Abnormality Appearance) (Pt Warm) (Pt Warm) -Tenderness on Palpation (Emmy-wound No No Skin Appearance) -Ulcer Cleansing Rinsed/ Rinsed/ Irrigated with Irrigated with Saline Saline -Foul Odor after Cleansing No No -Anesthetic Used 4% Lidocaine 4% Lidocaine Solution Solution Right Calf (cm) 44 45 Right Ankle (cm) 20 24 WC - Nurse 2 - General Ulcer CM Notes Start: 05/25/22 14:11 Freq: Status: Active Protocol: Activity Type Activity Date Activity User E-sign Co-sign Detail Recorded Client Recorded Date Recorded By Document 05/25/22 14:32 MW [id number] 05/25/22 14:39 MW Document 06/01/22 14:17 MW [id number] 06/01/22 14:22 MW 05/25/22 06/01/22 14:32 14:17 Wound Center Nurse 2 #1 R knee -Time 14:33 14:17 -Correct Patient Yes Yes -Correct Side, Site, Position Yes Yes -Correct Procedure Yes Yes -Procedure Performed Yes Yes -Type of Procedure Debridement Debridement -Clinical Debridement Subcutaneous Subcutaneous -Tissue Removed Subcutaneous Subcutaneous -Post Debridement (cm) - Length 2.5 2.5 -Post Debridement (cm) - Width 7.3 7.0 -Post Debridement (cm) - Depth 0.3 0.3 -Total Square (Post) (cm) 18.25 17.50 -Area of Debridement (cm) - Length 2.5 2.5 -Area of Debridement (cm) - Width 7.3 7.0 -Total Square (Area) (cm) 18.25 17.50 -Tunneling Yes Yes -Tunneling Position (O'clock) 2 7 -Tunneling Distance (cm) 1.0 7.4 -Tunneling Position #2 (O'clock) 7 2 -Tunneling Distance #2 (cm) 7.0 1.2 -Undermining/Tunneling No No -Circular Undermining No No -Wound/Ulcer Outcome Not Healed Not Healed -Ulcer Cleansing Rinsed/ Rinsed/ Irrigated with Irrigated with Saline Saline -Foul Odor after Cleansing No No -Bioengineered Tissue No No -Bleeding Controlled with Pressure Pressure -Treatment Response Procedure Procedure Tolerated Well Tolerated Well -Offloading No No -Debridement - Subq, 1st 20sq cm Yes Yes Pain Scale: 0-10 Numeric Is Patient Pain Free? Yes Yes WC - Nurse 3 - General Ulcer D/C NN Start: 05/25/22 14:11 Freq: Status: Active Protocol: Activity Type Activity Date Activity User E-sign Co-sign Detail Recorded Client Recorded Date Recorded By Document 05/25/22 14:27 MT [id number] 05/25/22 14:33 MT Edit Result 05/25/22 14:27 MT (1) [id number] 05/25/22 14:37 MT Document 05/30/22 10:35 AK [id number] 05/30/22 10:37 AK Document 06/01/22 14:39 KR [id number] 06/01/22 14:39 KR (1) Left - Compression Wrap => Calvin Wrap Right - Compression Wrap => Calvin Wrap 05/25/22 05/30/22 06/01/22 14:27 10:35 14:39 Wound Care Nurse 3 #1 R knee -Ulcer Cleansing Rinsed/ Soap and Water Rinsed/ Irrigated with Irrigated with Saline Saline -Foul Odor after Cleansing No -Negative Pressure Wound Therapy Continue Continue -Setting (mmHg) 150 150 -Negative Pressure is Continuous Continuous -Regranex (If Applicable) Continue -Primary Dressing Applied Optilok 6.5x10, Promogran Guerda Matter -Primary Dressing Covered/Secured with Dry Gauze & Roll Gauze, Secured with Tape -NPWT Application Charge NPWT </= 50 sq NPWT & cm ($) Debridement (nc ) -Optilok 6.5x10 1 -Promogran Guerda Matter 1 Left -Compression Wrap Calvin Wrap Right -Lotion applied to leg before No compression wrap -Compression Wrap Calvin Wrap Calvin Wrap Vital Signs Temperature (97.8 F-99.1 F) 96.9 F L Temperature Source Temporal Pulse Rate (60-100) 77 Pulse Location Monitor Blood Pressure (90/60-120/80) 142/69 H Blood Pressure Mean (mm Hg) 93 Source Monitor Pain Scale: 0-10 Numeric Is Patient Pain Free? 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 Wound culture obtained 04/27/22 which was positive for Staphylococcus haemolyticus and MRSE. Completed Doxycycline. Wound care - Wound VAC at 150 mmHg, white foam placed into the tunnel at 7 o'clock. VAC changes Sunday and . Tubigrip up above her knee for compression. Encouraged increase protein intake to help with wound healing. The 7 o'clock tunnel has shown slow improvement. The concern is that the overall wound has made dramatic improvements, except for the tunnel at 7 o'clock, that it should probably be surgically unroofed to get better access to the area so that it can heal quicker. I will refer her to Dr. Klein to be evaluated if this would be posible. Follow up Sunday for Nurse visit and to have VAC dressing changed. Then follow up one week to see me. Call or come into to be seen if develop issues.
[2022-06-08 13:18] VITALS: BP 151/65; PULSE 65; RESP 18; TEMP 37; BMI 41.6
--- NOTE | 2022-06-08 14:05 | PN.PCM_ITS ---
History of Present Illness Date of Service: 06/08/22 Chief Complaint: Non healing right knee wound History of Wound: Patient is a 61-year-old female who presents for follow-up following right knee. She fell on 04/03/2022 and required sutures. After the sutures removed her wound started to dehisce. She was to see her PCP, Dr. Duran, who referred her to the wound center. She also has a significant history of MS and she was just recently started on Ocrevus and received half a dose for her first infusion. She has had increased falls recently and she is now walking with a walker. She states that her clinic for management of her MS. Her other medical history is hypothyroidism, CKD stage III, TIA, PE, and DVT and is on blood thinners. She quit smoking 5 years ago. Wound care - Wound VAC at 150 mmHg, white foam placed into the tunnel at 7 o'clock. VAC changes Sunday and . Wound culture obtained on 04/27/22 which is positive for Staphylococcus haemolyticus, MRSE. They will be treated with Doxycycline. Today she denies fever, chills, nausea, vomiting. She states her appetite is good. Progress of Wound: Right knee ulcer is much improved using the wound vac. Her tunnel at 7 o'clock has decreased this week and the undermining at 2 o'clock has remained the same. Objective Data Objective Data Vital Signs: Vital Signs Temp Pulse Resp BP 98.6 F 65 18 151/65 H 06/08/22 13:18 06/08/22 13:18 06/08/22 13:18 06/08/22 13:18 Weight: 282 lb Body Mass Index (BMI) 41.6 Charges/Coding Procedures Integumentary 111xxx-113xx: [id number] Gretel subq tissue 20 sq cm/< Physical Exam Const alert and oriented x3 General Appearance: cooperative HEENT normocephalic Resp normal respiratory effort Cardio regular rate Peripheral Pulses: dorsalis pedis pulses present Extremity normal capillary refill Extremity Narrative: +1 edema right leg. Skin Wound Narrative: Right knee ulcer has improved using the wound VAC. The tunnel at 7 o'clock has decreased depth over the past week. The undermining at 2 o'clock is stable with no improvement. Neuro oriented x3 and moves all extremities Psych mental status grossly normal Debridement Note Debridement Note Wound debrided: knee ulcer Laterality: Right Wound Grade/Stage: Stage III Type of Debridement: Excisional debridement Anesthesia Used: 4% Lidocaine Solution and 5% Lidocaine Gel Depth: Down to and including healthy tissue and in the subcutaneous layer Percentage of wound debrided: 100 Instrument Used: 5mm curette Tissue Removed: Devitalized tissue and slough Severity: Fat Layer Exposed Amount of bleeding with debridement: Mild Bleeding Controlled with: Pressure and Compression and gauze Patient tolerated procedure: Patient tolerated procedure well Post-Debridement Measurements and Additional Note: Post-Debridement Measurements/Treatment - Nurse 1 - General Ulcer Assessment Start: 05/25/22 14:11 Freq: Status: Active Protocol: [employer]otions[employer]uan Antonio Activity Type Activity Date Activity User E-sign Co-sign Detail Recorded Client Recorded Date Recorded By Document 05/25/22 14:11 MT [id number] 05/25/22 14:18 MT Document 05/30/22 10:35 AK [id number] 05/30/22 10:37 AK Document 06/01/22 14:25 AK [id number] 06/01/22 14:27 AK Document 06/08/22 13:18 DL [id number] 06/08/22 13:27 DL 05/25/22 05/30/22 06/01/22 14:11 10:35 14:25 - Today's Visit Information Type of service Nurse-only Follow-up Visit Visit (Physician/SUPERVISOR 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 ) Arrival Mode Ambulatory Ambulatory Transfer Assistance Patient Identification Verified (Name & Yes Yes ) Patient Requires Transmission-Based No No Precautions Safety Precautions NA NA Height and Weight Body Mass Index (BMI) 41.6 41.6 41.6 BMI Classification Obese Obese Obese Vital Signs Temperature (97.8 F-99.1 F) 96.9 F L 97.2 F L Temperature Source Temporal Temporal Pulse Rate (60-100) 77 62 Pulse Location Monitor Monitor Respiratory Rate (12-18) Respiratory rate source Blood Pressure (90/60-120/80) 142/69 H 126/62 H Blood Pressure Mean (mm Hg) 93 83 Source Monitor Monitor History Since Last Visit- (Skip if this is Patient's initial visit) Have you changed medications since your No No last visit? Any new allergies or adverse reactions No No Had a fall/change in ADL's that may No No increase risk of falls Signs or symptoms of abuse and/or No No neglect since last visit Have you been in the hospital since your No No last visit? Has dressing in place as prescribed Yes Yes Has compression in place as prescribed Yes Yes Has offloadiing in place as prescribed N/A N/A Experienced any changes in pain level or No No management Left Footwear Regular Shoe Regular Shoe Right Footwear Regular Shoe Regular Shoe Pain Scale: 0-10 Numeric Is Patient Pain Free? Yes Yes Yes 06/08/22 13:18 WC - Today's Visit Information Type of service Follow-up Visit (Physician/SUPERVISOR WE[employer]ING ) Arrival Mode Ambulatory Transfer Assistance None Patient Identification Verified (Name & Yes ) Patient Requires Transmission-Based No Precautions Safety Precautions Height and Weight Body Mass Index (BMI) 41.6 BMI Classification Obese Vital Signs Temperature (97.8 F-99.1 F) 98.6 F Temperature Source Temporal Pulse Rate (60-100) 65 Pulse Location Monitor Respiratory Rate (12-18) 18 Respiratory rate source Observation Blood Pressure (90/60-120/80) 151/65 H Blood Pressure Mean (mm Hg) 93 Source Monitor History Since Last Visit- (Skip if this is Patient's initial visit) Have you changed medications since your No last visit? Any new allergies or adverse reactions No Had a fall/change in ADL's that may No increase risk of falls Signs or symptoms of abuse and/or No neglect since last visit Have you been in the hospital since your No last visit? Has dressing in place as prescribed No Has compression in place as prescribed Yes Has offloadiing in place as prescribed N/A Experienced any changes in pain level or No management Left Footwear Regular Shoe Right Footwear Regular Shoe Pain Scale: 0-10 Numeric Is Patient Pain Free? Yes - Nurse 1 - General Ulcer Measurement Start: 05/25/22 14:11 Freq: Status: Active Protocol: Activity Type Activity Date Activity User E-sign Co-sign Detail Recorded Client Recorded Date Recorded By Document 05/25/22 14:11 MT [id number] 05/25/22 14:18 MT Document 06/01/22 14:25 AK [id number] 06/01/22 14:27 AK Document 06/08/22 13:18 DL [id number] 06/08/22 13:27 DL 0906/01/22 06/08/22 14:11 14:25 13:18 Wound Center Nurse 1 #1 R knee -Combined with other wound No No -Current Size (cm) - Length 1.5 2 1.5 -Current Size (cm) - Width 8.0 6 6 -Current Size (cm) - Depth 0.2 0.1 0.1 -Total Square Cm 12.00 12 9.0 -Photo Taken No -Epithelialization None Present Small 1-33% -Tunneling Yes No Yes -Tunneling Position (O'clock) 2 2 -Tunneling Distance (cm) 1.4 1.1 -Tunneling Position #2 (O'clock) 7 7 -Tunneling Distance #2 (cm) 2.6 2.5 -Undermining/Tunneling No No -Circular Undermining No No -Change in Wound Grade/Stage No -Exudate Amt Small Large Medium -Exudate Type Sanguineous Serosanguineous Serosanguineous -Wound Margin Flat & Intact Distinct, Distinct, Outline Outline Attached Attached -Granulation Amt Large (67-100%) Large (67-100%) Large (67-100%) -Granulation Quality Pale,[place],Red [place],Red Pale,Red -Slough/Fibrin No Yes No -Necrosis Amt None Present (0 Small (1-33%) None Present (0 %) %) -Necrotic Tissue Type Adherent Slough -Structure Exposed N/A -Texture (Emmy-wound Skin Appearance) Assessed Assessed, Assessed, Scarring Scarring -Moisture (Emmy-wound Skin Appearance) Assessed No Abnormality, Assessed Assessed -Color (Emmy-wound Skin Appearance) Assessed No Abnormality, Assessed Assessed -Temperature (Emmy-wound Skin No Abnormality No Abnormality No Abnormality Appearance) (Pt Warm) (Pt Warm) (Pt Warm) -Tenderness on Palpation (Emmy-wound No No No Skin Appearance) -Ulcer Cleansing Rinsed/ Rinsed/ Soap and Water Irrigated with Irrigated with Saline Saline -Foul Odor after Cleansing No No No -Anesthetic Used 4% Lidocaine 4% Lidocaine 4% Lidocaine Solution Solution Solution Right Calf (cm) 44 45 Right Ankle (cm) 20 24 WC - Nurse 2 - General Ulcer CM Notes Start: 05/25/22 14:11 Freq: Status: Active Protocol: Activity Type Activity Date Activity User E-sign Co-sign Detail Recorded Client Recorded Date Recorded By Document 05/25/22 14:32 MW [id number] 05/25/22 14:39 MW Document 06/01/22 14:17 MW [id number] 06/01/22 14:22 MW Document 06/08/22 13:33 MW [id number] 06/08/22 13:36 MW 05/25/22 06/01/22 06/08/22 14:32 14:17 13:33 Wound Center Nurse 2 #1 R knee -Time 14:33 14:17 13:34 -Correct Patient Yes Yes Yes -Correct Side, Site, Position Yes Yes Yes -Correct Procedure Yes Yes Yes -Procedure Performed Yes Yes Yes -Type of Procedure Debridement Debridement Debridement -Clinical Debridement Subcutaneous Subcutaneous Subcutaneous -Tissue Removed Subcutaneous Subcutaneous Subcutaneous -Post Debridement (cm) - Length 2.5 2.5 1.9 -Post Debridement (cm) - Width 7.3 7.0 6.4 -Post Debridement (cm) - Depth 0.3 0.3 0.1 -Total Square (Post) (cm) 18.25 17.50 12.16 -Area of Debridement (cm) - Length 2.5 2.5 1.9 -Area of Debridement (cm) - Width 7.3 7.0 6.4 -Total Square (Area) (cm) 18.25 17.50 12.16 -Tunneling Yes Yes Yes -Tunneling Position (O'clock) 2 7 2 -Tunneling Distance (cm) 1.0 7.4 1.2 -Tunneling Position #2 (O'clock) 7 2 7 -Tunneling Distance #2 (cm) 7.0 1.2 4.1 -Undermining/Tunneling No No No -Circular Undermining No No No -Wound/Ulcer Outcome Not Healed Not Healed Not Healed -Ulcer Cleansing Rinsed/ Rinsed/ Rinsed/ Irrigated with Irrigated with Irrigated with Saline Saline Saline -Foul Odor after Cleansing No No -Bioengineered Tissue No No No -Bleeding Controlled with Pressure Pressure Pressure -Treatment Response Procedure Procedure Procedure Tolerated Well Tolerated Well Tolerated Well -Offloading No No No -Debridement - Subq, 1st 20sq cm Yes Yes Yes Pain Scale: 0-10 Numeric Is Patient Pain Free? Yes Yes Yes WC - Nurse 3 - General Ulcer D/C NN Start: 05/25/22 14:11 Freq: Status: Active Protocol: Activity Type Activity Date Activity User E-sign Co-sign Detail Recorded Client Recorded Date Recorded By Document 05/25/22 14:27 MT [id number] 05/25/22 14:33 MT Edit Result 05/25/22 14:27 MT (1) [id number] 05/25/22 14:37 MT Document 05/30/22 10:35 AK [id number] 05/30/22 10:37 AK Document 06/01/22 14:39 KR [id number] 06/01/22 14:39 KR Edit Result 06/01/22 14:39 KR (2) [id number] 06/06/22 07:19 PL Document 06/08/22 13:46 KR [id number] 06/08/22 13:47 KR (1) Left - Compression Wrap => Calvin Wrap Right - Compression Wrap => Calvin Wrap (2) #1 R knee - NPWT Application Charge NPWT & Debridement => NPWT </= 50 sq cm (nc) => ($) 05/25/22 05/30/22 06/01/22 14:27 10:35 14:39 Wound Care Nurse 3 #1 R knee -Ulcer Cleansing Rinsed/ Soap and Water Rinsed/ Irrigated with Irrigated with Saline Saline -Foul Odor after Cleansing No -Negative Pressure Wound Therapy Continue Continue -Setting (mmHg) 150 150 -Negative Pressure is Continuous Continuous -Regranex (If Applicable) Continue -Primary Dressing Applied Optilok 6.5x10, Promogran Guerda Matter -Other Dressing -Primary Dressing Covered/Secured with Dry Gauze & Roll Gauze, Secured with Tape -NPWT Application Charge NPWT </= 50 sq NPWT </= 50 sq cm ($) cm ($) -Aquacel AG 4x4 -Optilok 6.5x10 1 -Promogran Guerda Matter 1 Left -Compression Wrap Calvin Wrap Right -Lotion applied to leg before No compression wrap -Compression Wrap Calvin Wrap Calvin Wrap Vital Signs Temperature (97.8 F-99.1 F) 96.9 F L Temperature Source Temporal Pulse Rate (60-100) 77 Pulse Location Monitor Blood Pressure (90/60-120/80) 142/69 H Blood Pressure Mean (mm Hg) 93 Source Monitor Pain Scale: 0-10 Numeric Is Patient Pain Free? Yes Yes Yes WC - Visit Discharge Discharge Condition Stable Stable Stable Ambulatory Status Ambulatory, Ambulatory Ambulatory Wheelchair Transportation Private Auto Private Auto Private Auto Accompanied by Medication Reconcilliation completed & No Yes provided to patient/care provider Clinical Summary of Care Provided Yes Yes 06/08/22 13:46 Wound Care Nurse 3 #1 R knee -Ulcer Cleansing Rinsed/ Irrigated with Saline -Foul Odor after Cleansing -Negative Pressure Wound Therapy -Setting (mmHg) -Negative Pressure is -Regranex (If Applicable) -Primary Dressing Applied Aquacel AG 4x4 -Other Dressing ABD PAD -Primary Dressing Covered/Secured with -NPWT Application Charge -Aquacel AG 4x4 2 -Optilok 6.5x10 -Promogran Guerda Matter Left -Compression Wrap Right -Lotion applied to leg before compression wrap -Compression Wrap Vital Signs Temperature (97.8 F-99.1 F) Temperature Source Pulse Rate (60-100) Pulse Location Blood Pressure (90/60-120/80) Blood Pressure Mean (mm Hg) Source Pain Scale: 0-10 Numeric Is Patient Pain Free? Yes WC - Visit Discharge Discharge Condition Stable Ambulatory Status Ambulatory Transportation Private Auto Accompanied by Medication Reconcilliation completed & provided to patient/care provider Clinical Summary of Care Provided Assessment/Plan Assessment/Plan (1) Ulcer of right knee: CODE(S): L97.819 - Non-pressure chronic ulcer of other part of right lower leg with unspecified severity (2) Multiple sclerosis: CODE(S): G35 - Multiple sclerosis (3) Chronic anticoagulation: CODE(S): Z79.01 - intermediate (current) use of anticoagulants PLAN: Plan Patient was evaluated at the wound center today, subcutaneous debridement was performed as previously documented. Wound culture obtained 04/27/22 which was positive for Staphylococcus haemolyticus and MRSE. Completed Doxycycline. Will take a wound VAC holiday for a week. She is scheduled to see Dr. Klein later today for evaluation of possible operative debridement to unroof the tunnel. Wound care - Aquacel-Ag to the ulcer with it packed into the tunnel at 7 o'clock and into the undermining area at 2 o'clock. Cover with gauze. Do this dressing daily after washing with soap and water. Tubigrip up above her knee for compression. Encouraged increase protein intake to help with wound healing. Follow up one week. Call or come in sooner if develop any concerns.
[2022-06-14 13:43] VITALS: RESP 16; TEMP 36.8; BMI 41.6
--- NOTE | 2022-06-14 15:22 | PCM.WC.PN ---
History of Present Illness Date of Service: 06/14/22 Chief Complaint: Non healing right knee wound History of Wound: Patient is a 61-year-old female who presents for follow-up following right knee. She fell on 04/03/2022 and required sutures. After the sutures removed her wound started to dehisce. She was to see her PCP, Dr. Duran, who referred her to the wound center. She also has a significant history of MS and she was just recently started on Ocrevus and received half a dose for her first infusion. She has had increased falls recently and she is now walking with a walker. She states that her clinic for management of her MS. Her other medical history is hypothyroidism, CKD stage III, TIA, PE, and DVT and is on blood thinners. She quit smoking 5 years ago. Wound care - Stop wound VAC and start Aquacel-Ag packed into the tunnel and undermining covered with gauze daily. Wound culture obtained on 04/27/22 which is positive for Staphylococcus haemolyticus, MRSE. They will be treated with Doxycycline. Today she denies fever, chills, nausea, vomiting. She states her appetite is good. Progress of Wound: Right knee ulcer is much improved using the wound vac. Her tunnel at 7 o'clock has decreased this week and the undermining at 2 o'clock has remained the same. Objective Data Objective Data Vital Signs: Vital Signs Temp Pulse Resp BP O2 Del Method 98.3 F 65 16 151/65 H Room Air 06/14/22 13:43 06/08/22 13:18 06/14/22 13:43 06/08/22 13:18 06/14/22 13:43 Oxygen Delivery Method Room Air Weight: 282 lb Body Mass Index (BMI) 41.6 Charges/Coding Procedures Integumentary 111xxx-113xx: 31769 Gretel subq tissue 20 sq cm/< Physical Exam Const alert and oriented x3 General Appearance: cooperative HEENT normocephalic Resp normal respiratory effort Cardio regular rate Peripheral Pulses: dorsalis pedis pulses present Extremity normal capillary refill Extremity Narrative: +1 edema right leg. Skin Wound Narrative: Right knee ulcer has improved using the wound VAC. The tunnel at 7 o'clock has decreased depth over the past week. The undermining at 2 o'clock is stable. Neuro oriented x3 and moves all extremities Psych mental status grossly normal Debridement Note Debridement Note Wound debrided: knee ulcer Laterality: Right Wound Grade/Stage: Stage III Type of Debridement: Excisional debridement Anesthesia Used: 4% Lidocaine Solution and 5% Lidocaine Gel Depth: Down to and including healthy tissue and in the subcutaneous layer Percentage of wound debrided: 100 Instrument Used: 5mm curette Tissue Removed: Devitalized tissue and slough Severity: Fat Layer Exposed Amount of bleeding with debridement: Mild Bleeding Controlled with: Pressure and Compression and gauze Patient tolerated procedure: Patient tolerated procedure well Post-Debridement Measurements and Additional Note: Post-Debridement Measurements/Treatment - Nurse 1 - General Ulcer Assessment Start: 05/25/22 14:11 Freq: Status: Active Protocol: ATA Activity Type Activity Date Activity User E-sign Co-sign Detail Recorded Client Recorded Date Recorded By Document 05/25/22 14:11 MT [id number] 05/25/22 14:18 MT Document 05/30/22 10:35 AK [id number] 05/30/22 10:37 AK Document 06/01/22 14:25 AK [id number] 06/01/22 14:27 AK Document 06/08/22 13:18 DL [id number] 06/08/22 13:27 DL Document 06/14/22 13:43 BM [id number] 06/14/22 13:51 BMF 05/25/22 05/30/22 06/01/22 14:11 10:35 14:25 - Today's Visit Information Type of service Nurse-only Follow-up Visit Visit (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/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 ) Arrival Mode Ambulatory Ambulatory Transfer Assistance Patient Identification Verified (Name & Yes Yes ) Patient Requires Transmission-Based No No Precautions Safety Precautions NA NA Height and Weight Body Mass Index (BMI) 41.6 41.6 41.6 BMI Classification Obese Obese Obese Vital Signs Temperature (97.8 F-99.1 F) 96.9 F L 97.2 F L Temperature Source Temporal Temporal Pulse Rate (60-100) 77 62 Pulse Location Monitor Monitor Respiratory Rate (12-18) Respiratory rate source Oxygen Delivery Method Blood Pressure (90/60-120/80) 142/69 H 126/62 H Blood Pressure Mean (mm Hg) 93 83 Source Monitor Monitor Position Blood Pressure Location History Since Last Visit- (Skip if this is Patient's initial visit) Have you changed medications since your No No last visit? Any new allergies or adverse reactions No No Had a fall/change in ADL's that may No No increase risk of falls Signs or symptoms of abuse and/or No No neglect since last visit Have you been in the hospital since your No No last visit? Has dressing in place as prescribed Yes Yes Has compression in place as prescribed Yes Yes Has offloadiing in place as prescribed N/A N/A Experienced any changes in pain level or No No management Left Footwear Regular Shoe Regular Shoe Right Footwear Regular Shoe Regular Shoe Other Footwear Pain Scale: 0-10 Numeric Is Patient Pain Free? Yes Yes Yes 06/08/22 06/14/22 13:18 13:43 WC - Today's Visit Information Type of service Follow-up Visit Follow-up Visit (Physician/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 (Physician/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 ) ) Arrival Mode Ambulatory Ambulatory Transfer Assistance None None Patient Identification Verified (Name & Yes Yes ) Patient Requires Transmission-Based No Precautions Safety Precautions Height and Weight Body Mass Index (BMI) 41.6 41.6 BMI Classification Obese Obese Vital Signs Temperature (97.8 F-99.1 F) 98.6 F 98.3 F Temperature Source Temporal Temporal Pulse Rate (60-100) 65 Pulse Location Monitor Monitor Respiratory Rate (12-18) 18 16 Respiratory rate source Observation Observation Oxygen Delivery Method Room Air Blood Pressure (90/60-120/80) 151/65 H Blood Pressure Mean (mm Hg) 93 Source Monitor Monitor Position Sitting Blood Pressure Location Right Arm History Since Last Visit- (Skip if this is Patient's initial visit) Have you changed medications since your No No last visit? Any new allergies or adverse reactions No No Had a fall/change in ADL's that may No No increase risk of falls Signs or symptoms of abuse and/or No No neglect since last visit Have you been in the hospital since your No No last visit? Has dressing in place as prescribed No No Has compression in place as prescribed Yes Yes Has offloadiing in place as prescribed N/A N/A Experienced any changes in pain level or No No management Left Footwear Regular Shoe Regular Shoe Right Footwear Regular Shoe Regular Shoe Other Footwear VAC OFF. 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 Yes Yes - Nurse 1 - General Ulcer Measurement Start: 05/25/22 14:11 Freq: Status: Active Protocol: Activity Type Activity Date Activity User E-sign Co-sign Detail Recorded Client Recorded Date Recorded By Document 05/25/22 14:11 MT [id number] 05/25/22 14:18 MT Document 06/01/22 14:25 AK [id number] 06/01/22 14:27 AK Document 06/08/22 13:18 DL [id number] 06/08/22 13:27 DL Document 06/14/22 13:43 BMF [id number] 06/14/22 13:51 BMF 05/25/22 06/01/22 06/08/22 14:11 14:25 13:18 Wound Center Nurse 1 #1 R knee -Combined with other wound No No -Current Size (cm) - Length 1.5 2 1.5 -Current Size (cm) - Width 8.0 6 6 -Current Size (cm) - Depth 0.2 0.1 0.1 -Total Square Cm 12.00 12 9.0 -Date of Last Picture (Recall this field) -Photo Taken No -Epithelialization None Present Small 1-33% -Tunneling Yes No Yes -Tunneling Position (O'clock) 2 2 -Tunneling Distance (cm) 1.4 1.1 -Tunneling Position #2 (O'clock) 7 7 -Tunneling Distance #2 (cm) 2.6 2.5 -Undermining/Tunneling No No -Circular Undermining No No -Change in Wound Grade/Stage No -Exudate Amt Small Large Medium -Exudate Type Sanguineous Serosanguineous Serosanguineous -Wound Margin Flat & Intact Distinct, Distinct, Outline Outline Attached Attached -Granulation Amt Large (67-100%) Large (67-100%) Large (67-100%) -Granulation Quality Pale,[place],Red [place],Red Pale,Red -Slough/Fibrin No Yes No -Necrosis Amt None Present (0 Small (1-33%) None Present (0 %) %) -Necrotic Tissue Type Adherent Slough -Structure Exposed N/A -Texture (Emmy-wound Skin Appearance) Assessed Assessed, Assessed, Scarring Scarring -Moisture (Emmy-wound Skin Appearance) Assessed No Abnormality, Assessed Assessed -Color (Emmy-wound Skin Appearance) Assessed No Abnormality, Assessed Assessed -Temperature (Emmy-wound Skin No Abnormality No Abnormality No Abnormality Appearance) (Pt Warm) (Pt Warm) (Pt Warm) -Tenderness on Palpation (Emmy-wound No No No Skin Appearance) -Ulcer Cleansing Rinsed/ Rinsed/ Soap and Water Irrigated with Irrigated with Saline Saline -Foul Odor after Cleansing No No No -Anesthetic Used 4% Lidocaine 4% Lidocaine 4% Lidocaine Solution Solution Solution Lower Limb Edema Present Right Calf (cm) 44 45 Right Ankle (cm) 20 24 06/14/22 13:43 Wound Center Nurse 1 #1 R knee -Combined with other wound No -Current Size (cm) - Length 1.9 -Current Size (cm) - Width 5.9 -Current Size (cm) - Depth 0.2 -Total Square Cm 11. -Date of Last Picture (Recall this 06/14/22 field) -Photo Taken Yes -Epithelialization None Present -Tunneling Yes -Tunneling Position (O'clock) 2 -Tunneling Distance (cm) 0.1 -Tunneling Position #2 (O'clock) 7 -Tunneling Distance #2 (cm) 2.5 -Undermining/Tunneling No -Circular Undermining No -Change in Wound Grade/Stage -Exudate Amt Medium -Exudate Type Serous -Wound Margin Distinct, Outline Attached -Granulation Amt Medium (34-66%) -Granulation Quality [place] -Slough/Fibrin Yes -Necrosis Amt Medium (34-66%) -Necrotic Tissue Type Adherent Slough -Structure Exposed -Texture (Emmy-wound Skin Appearance) Assessed, Scarring -Moisture (Emmy-wound Skin Appearance) Assessed -Color (Emmy-wound Skin Appearance) Assessed -Temperature (Emmy-wound Skin No Abnormality Appearance) (Pt Warm) -Tenderness on Palpation (Emmy-wound No Skin Appearance) -Ulcer Cleansing Rinsed/ Irrigated with Saline -Foul Odor after Cleansing No -Anesthetic Used 4% Lidocaine Solution Lower Limb Edema Present Yes Right Calf (cm) 45.5 Right Ankle (cm) 25.2 WC - Nurse 2 - General Ulcer CM Notes Start: 05/25/22 14:11 Freq: Status: Active Protocol: Activity Type Activity Date Activity User E-sign Co-sign Detail Recorded Client Recorded Date Recorded By Document 05/25/22 14:32 MW [id number] 05/25/22 14:39 MW Document 06/01/22 14:17 MW [id number] 06/01/22 14:22 MW Document 06/08/22 13:33 MW [id number] 06/08/22 13:36 MW Document 06/14/22 14:25 JF [id number] 06/14/22 14:27 JF 05/25/22 06/01/22 06/08/22 14:32 14:17 13:33 Wound Center Nurse 2 #1 R knee -Time 14:33 14:17 13:34 -Correct Patient Yes Yes Yes -Correct Side, Site, Position Yes Yes Yes -Correct Procedure Yes Yes Yes -Procedure Performed Yes Yes Yes -Type of Procedure Debridement Debridement Debridement -Clinical Debridement Subcutaneous Subcutaneous Subcutaneous -Tissue Removed Subcutaneous Subcutaneous Subcutaneous -Post Debridement (cm) - Length 2.5 2.5 1.9 -Post Debridement (cm) - Width 7.3 7.0 6.4 -Post Debridement (cm) - Depth 0.3 0.3 0.1 -Total Square (Post) (cm) 18.25 17.50 12.16 -Area of Debridement (cm) - Length 2.5 2.5 1.9 -Area of Debridement (cm) - Width 7.3 7.0 6.4 -Total Square (Area) (cm) 18.25 17.50 12.16 -Tunneling Yes Yes Yes -Tunneling Position (O'clock) 2 7 2 -Tunneling Distance (cm) 1.0 7.4 1.2 -Tunneling Position #2 (O'clock) 7 2 7 -Tunneling Distance #2 (cm) 7.0 1.2 4.1 -Undermining/Tunneling No No No -Circular Undermining No No No -Wound/Ulcer Outcome Not Healed Not Healed Not Healed -Ulcer Cleansing Rinsed/ Rinsed/ Rinsed/ Irrigated with Irrigated with Irrigated with Saline Saline Saline -Foul Odor after Cleansing No No -Bioengineered Tissue No No No -Bleeding Controlled with Pressure Pressure Pressure -Treatment Response Procedure Procedure Procedure Tolerated Well Tolerated Well Tolerated Well -Offloading No No No -Debridement - Subq, 1st 20sq cm Yes Yes Yes Pain Scale: 0-10 Numeric Is Patient Pain Free? Yes Yes Yes 06/14/22 14:25 Wound Center Nurse 2 #1 R knee -Time 14:25 -Correct Patient Yes -Correct Side, Site, Position Yes -Correct Procedure Yes -Procedure Performed Yes -Type of Procedure Debridement -Clinical Debridement Subcutaneous -Tissue Removed Subcutaneous -Post Debridement (cm) - Length 1.7 -Post Debridement (cm) - Width 6.2 -Post Debridement (cm) - Depth 0.3 -Total Square (Post) (cm) 10.54 -Area of Debridement (cm) - Length 1.7 -Area of Debridement (cm) - Width 6.2 -Total Square (Area) (cm) 10.54 -Tunneling Yes -Tunneling Position (O'clock) 2 -Tunneling Distance (cm) 0.3 -Tunneling Position #2 (O'clock) 7 -Tunneling Distance #2 (cm) 4.5 -Undermining/Tunneling No -Circular Undermining No -Wound/Ulcer Outcome Not Healed -Ulcer Cleansing Rinsed/ Irrigated with Saline -Foul Odor after Cleansing No -Bioengineered Tissue No -Bleeding Controlled with Pressure -Treatment Response Procedure Tolerated Well -Offloading No -Debridement - Subq, 1st 20sq cm Yes Pain Scale: 0-10 Numeric Is Patient Pain Free? Yes WC - Nurse 3 - General Ulcer D/C NN Start: 05/25/22 14:11 Freq: Status: Active Protocol: Activity Type Activity Date Activity User E-sign Co-sign Detail Recorded Client Recorded Date Recorded By Document 05/25/22 14:27 MT [id number] 05/25/22 14:33 MT Edit Result 05/25/22 14:27 MT (1) [id number] 05/25/22 14:37 MT Document 05/30/22 10:35 AK [id number] 05/30/22 10:37 AK Document 06/01/22 14:39 KR [id number] 06/01/22 14:39 KR Edit Result 06/01/22 14:39 KR (2) [id number] 06/06/22 07:19 PL Document 06/08/22 13:46 KR [id number] 06/08/22 13:47 KR Document 06/14/22 14:36 DL [id number] 06/14/22 14:40 DL (1) Left - Compression Wrap => Calvin Wrap Right - Compression Wrap => Calvin Wrap (2) #1 R knee - NPWT Application Charge NPWT & Debridement => NPWT </= 50 sq cm (nc) => ($) 05/25/22 05/30/22 06/01/22 14:27 10:35 14:39 Wound Care Nurse 3 #1 R knee -Ulcer Cleansing Rinsed/ Soap and Water Rinsed/ Irrigated with Irrigated with Saline Saline -Foul Odor after Cleansing No -Negative Pressure Wound Therapy Continue Continue -Setting (mmHg) 150 150 -Negative Pressure is Continuous Continuous -Regranex (If Applicable) Continue -Primary Dressing Applied Optilok 6.5x10, Promogran Guerda Matter -Other Dressing -Primary Dressing Covered/Secured with Dry Gauze & Roll Gauze, Secured with Tape -NPWT Application Charge NPWT </= 50 sq NPWT </= 50 sq cm ($) cm ($) -Aquacel AG 4x4 -Optilok 6.5x10 1 -Promogran Guerda Matter 1 Left -Compression Wrap Calvin Wrap Right -Lotion applied to leg before No compression wrap -Compression Wrap Calvin Wrap Calvin Wrap -Tubular Bandage -Size of Tubigrip Used -Size E ($) Treatment Response Vital Signs Temperature (97.8 F-99.1 F) 96.9 F L Temperature Source Temporal Pulse Rate (60-100) 77 Pulse Location Monitor Blood Pressure (90/60-120/80) 142/69 H Blood Pressure Mean (mm Hg) 93 Source Monitor Pain Scale: 0-10 Numeric Is Patient Pain Free? Yes Yes Yes WC - Visit Discharge Discharge Condition Stable Stable Stable Ambulatory Status Ambulatory, Ambulatory Ambulatory Wheelchair Transportation Private Auto Private Auto Private Auto Accompanied by Medication Reconcilliation completed & No Yes provided to patient/care provider Clinical Summary of Care Provided Yes Yes 06/08/22 06/14/22 13:46 14:36 Wound Care Nurse 3 #1 R knee -Ulcer Cleansing Rinsed/ Rinsed/ Irrigated with Irrigated with Saline Saline -Foul Odor after Cleansing No -Negative Pressure Wound Therapy -Setting (mmHg) -Negative Pressure is -Regranex (If Applicable) -Primary Dressing Applied Aquacel AG 4x4 Aquacel AG 4x4 -Other Dressing ABD PAD -Primary Dressing Covered/Secured with Dry Gauze & Roll Gauze, Secured with Tape -NPWT Application Charge -Aquacel AG 4x4 2 1 -Optilok 6.5x10 -Promogran Guerda Matter Left -Compression Wrap Right -Lotion applied to leg before compression wrap -Compression Wrap -Tubular Bandage Double Layer -Size of Tubigrip Used Size E -Size E ($) 2 Treatment Response Procedure Tolerated Well Vital Signs Temperature (97.8 F-99.1 F) Temperature Source Pulse Rate (60-100) Pulse Location Blood Pressure (90/60-120/80) Blood Pressure Mean (mm Hg) Source Pain Scale: 0-10 Numeric Is Patient Pain Free? 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 Wound culture obtained 04/27/22 which was positive for Staphylococcus haemolyticus and MRSE. Completed Doxycycline. She has an operative debridement scheduled next week with Dr. Klein. Wound care - Aquacel-Ag to the ulcer with it packed into the tunnel at 7 o'clock and into the undermining area at 2 o'clock. Cover with gauze. Do this dressing daily after washing with soap and water. Double Tubigrip up above her knee for compression. Return wound VAC. Encouraged increase protein intake to help with wound healing. Follow up one week. Call or come in sooner if develop any concerns.
[2022-06-21 13:53] VITALS: BP 153/91; PULSE 75; RESP 20; TEMP 36.9; BMI 41.6
--- NOTE | 2022-06-21 16:38 | PN.PCM_ITS ---
History of Present Illness Date of Service: 06/21/22 Chief Complaint: Non healing right knee wound History of Wound: Patient is a 61-year-old female who presents for follow-up following right knee. She fell on 04/03/2022 and required sutures. After the sutures removed her wound started to dehisce. She was to see her PCP, Dr. Duran, who referred her to the wound center. She also has a significant history of MS and she was just recently started on Ocrevus and received half a dose for her first infusion. She has had increased falls recently and she is now walking with a walker. She states that her clinic for management of her MS. Her other medical history is hypothyroidism, CKD stage III, TIA, PE, and DVT and is on blood thinners. She quit smoking 5 years ago. Wound care - Aquacel-Ag packed into the tunnel and undermining covered with gauze daily. Wound culture obtained on 04/27/22 which is positive for Staphylococcus haemolyticus, MRSE. They will be treated with Doxycycline. Today she denies fever, chills, nausea, vomiting. She states her appetite is good. Progress of Wound: Right knee ulcer is much improved using the wound vac. Her tunnel at 7 o'clock has decreased and the undermining at 2 o'clock has resolved. She is scheduled to have the tunnel at 7 o'clock unroofed next week with Dr. lKein. Objective Data Objective Data Vital Signs: Vital Signs Temp Pulse Resp BP O2 Del Method 98.4 F 75 20 H 153/91 H Room Air 06/21/22 13:53 06/21/22 13:53 06/21/22 13:53 06/21/22 13:53 06/14/22 13:43 Oxygen Delivery Method Room Air Weight: 282 lb Body Mass Index (BMI) 41.6 Charges/Coding Procedures Integumentary 111xxx-113xx: 45210 Gretel subq tissue 20 sq cm/< Physical Exam Const alert and oriented x3 General Appearance: cooperative HEENT normocephalic Resp normal respiratory effort Cardio regular rate Peripheral Pulses: dorsalis pedis pulses present Extremity normal capillary refill Extremity Narrative: +1 edema right leg. Skin Wound Narrative: Right knee ulcer has improved using the wound VAC. The tunnel at 7 o'clock has decreased depth. The undermining at 2 o'clock has resolved. Neuro oriented x3 and moves all extremities Psych mental status grossly normal Debridement Note Debridement Note Wound debrided: knee ulcer Laterality: Right Wound Grade/Stage: Stage III Type of Debridement: Excisional debridement Anesthesia Used: 4% Lidocaine Solution and 5% Lidocaine Gel Depth: Down to and including healthy tissue and in the subcutaneous layer Percentage of wound debrided: 100 Instrument Used: 3mm curette Tissue Removed: Devitalized tissue and slough Severity: Fat Layer Exposed Amount of bleeding with debridement: Mild Bleeding Controlled with: Pressure and Compression and gauze Patient tolerated procedure: Patient tolerated procedure well Post-Debridement Measurements and Additional Note: Post-Debridement Measurements/Treatment - Nurse 1 - General Ulcer Assessment Start: 05/25/22 14:11 Freq: Status: Active Protocol: ATA Activity Type Activity Date Activity User E-sign Co-sign Detail Recorded Client Recorded Date Recorded By Document 05/25/22 14:11 MT [id number] 05/25/22 14:18 CO Document 05/30/22 10:35 AK [id number] 05/30/22 10:37 AK Document 06/01/22 14:25 AK [id number] 06/01/22 14:27 AK Document 06/08/22 13:18 DL [id number] 06/08/22 13:27 DL Document 06/14/22 13:43 [facility] [id number] 06/14/22 13:51 BMF Document 06/21/22 13:53 DL [id number] 06/21/22 14:00 DL 05/25/22 05/30/22 06/01/22 14:11 10:35 14:25 - Today's Visit Information Type of service Nurse-only Follow-up Visit Visit (Physician/FINANCIAL AID COORDINATOR ) Arrival Mode Ambulatory Ambulatory Transfer Assistance Patient Identification Verified (Name & Yes Yes ) Patient Requires Transmission-Based No No Precautions Safety Precautions NA NA Height and Weight Body Mass Index (BMI) 41.6 41.6 41.6 BMI Classification Obese Obese Obese Vital Signs Temperature (97.8 F-99.1 F) 96.9 F L 97.2 F L Temperature Source Temporal Temporal Pulse Rate (60-100) 77 62 Pulse Location Monitor Monitor Respiratory Rate (12-18) Respiratory rate source Oxygen Delivery Method Blood Pressure (90/60-120/80) 142/69 H 126/62 H Blood Pressure Mean (mm Hg) 93 83 Source Monitor Monitor Position Blood Pressure Location History Since Last Visit- (Skip if this is Patient's initial visit) Have you changed medications since your No No last visit? Any new allergies or adverse reactions No No Had a fall/change in ADL's that may No No increase risk of falls Signs or symptoms of abuse and/or No No neglect since last visit Have you been in the hospital since your No No last visit? Has dressing in place as prescribed Yes Yes Has compression in place as prescribed Yes Yes Has offloadiing in place as prescribed N/A N/A Experienced any changes in pain level or No No management Left Footwear Regular Shoe Regular Shoe Right Footwear Regular Shoe Regular Shoe Other Footwear Pain Scale: 0-10 Numeric Is Patient Pain Free? Yes Yes Yes 06/08/22 06/14/22 06/21/22 13:18 13:43 13:53 WC - Today's Visit Information Type of service Follow-up Visit Follow-up Visit Follow-up Visit (Physician/FINANCIAL AID COORDINATOR (Physician/FINANCIAL AID COORDINATOR (Physician/FINANCIAL AID COORDINATOR ) ) ) Arrival Mode Ambulatory Ambulatory Ambulatory Transfer Assistance None None None Patient Identification Verified (Name & Yes Yes Yes ) Patient Requires Transmission-Based No No Precautions Safety Precautions Height and Weight Body Mass Index (BMI) 41.6 41.6 41.6 BMI Classification Obese Obese Obese Vital Signs Temperature (97.8 F-99.1 F) 98.6 F 98.3 F 98.4 F Temperature Source Temporal Temporal Temporal Pulse Rate (60-100) 65 75 Pulse Location Monitor Monitor Monitor Respiratory Rate (12-18) 18 16 20 H Respiratory rate source Observation Observation Observation Oxygen Delivery Method Room Air Blood Pressure (90/60-120/80) 151/65 H 153/91 H Blood Pressure Mean (mm Hg) 93 111 Source Monitor Monitor Monitor Position Sitting Blood Pressure Location Right Arm History Since Last Visit- (Skip if this is Patient's initial visit) Have you changed medications since your No No No last visit? Any new allergies or adverse reactions No No No Had a fall/change in ADL's that may No No No increase risk of falls Signs or symptoms of abuse and/or No No No neglect since last visit Have you been in the hospital since your No No No last visit? Has dressing in place as prescribed No No Yes Has compression in place as prescribed Yes Yes Yes Has offloadiing in place as prescribed N/A N/A Yes Experienced any changes in pain level or No No No management Left Footwear Regular Shoe Regular Shoe Right Footwear Regular Shoe Regular Shoe Other Footwear VAC OFF. 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 Yes Yes Yes WC - Nurse 1 - General Ulcer Measurement Start: 05/25/22 14:11 Freq: Status: Active Protocol: Activity Type Activity Date Activity User E-sign Co-sign Detail Recorded Client Recorded Date Recorded By Document 05/25/22 14:11 MT [id number] 05/25/22 14:18 MT Document 06/01/22 14:25 AK [id number] 06/01/22 14:27 AK Document 06/08/22 13:18 DL [id number] 06/08/22 13:27 DL Document 06/14/22 13:43 BMF [id number] 06/14/22 13:51 BMF Document 06/21/22 13:53 DL [id number] 06/21/22 14:00 DL 05/25/22 06/01/22 06/08/22 14:11 14:25 13:18 Wound Center Nurse 1 #1 R knee -Combined with other wound No No -Current Size (cm) - Length 1.5 2 1.5 -Current Size (cm) - Width 8.0 6 6 -Current Size (cm) - Depth 0.2 0.1 0.1 -Total Square Cm 12.00 12 9.0 -Date of Last Picture (Recall this field) -Photo Taken No -Epithelialization None Present Small 1-33% -Tunneling Yes No Yes -Tunneling Position (O'clock) 2 2 -Tunneling Distance (cm) 1.4 1.1 -Tunneling Position #2 (O'clock) 7 7 -Tunneling Distance #2 (cm) 2.6 2.5 -Undermining/Tunneling No No -Circular Undermining No No -Change in Wound Grade/Stage No -Exudate Amt Small Large Medium -Exudate Type Sanguineous Serosanguineous Serosanguineous -Wound Margin Flat & Intact Distinct, Distinct, Outline Outline Attached Attached -Granulation Amt Large (67-100%) Large (67-100%) Large (67-100%) -Granulation Quality Pale,[place],Red [place],Red Pale,Red -Slough/Fibrin No Yes No -Necrosis Amt None Present (0 Small (1-33%) None Present (0 %) %) -Necrotic Tissue Type Adherent Slough -Structure Exposed N/A -Texture (Emmy-wound Skin Appearance) Assessed Assessed, Assessed, Scarring Scarring -Moisture (Emmy-wound Skin Appearance) Assessed No Abnormality, Assessed Assessed -Color (Emmy-wound Skin Appearance) Assessed No Abnormality, Assessed Assessed -Temperature (Emmy-wound Skin No Abnormality No Abnormality No Abnormality Appearance) (Pt Warm) (Pt Warm) (Pt Warm) -Tenderness on Palpation (Emmy-wound No No No Skin Appearance) -Ulcer Cleansing Rinsed/ Rinsed/ Soap and Water Irrigated with Irrigated with Saline Saline -Foul Odor after Cleansing No No No -Anesthetic Used 4% Lidocaine 4% Lidocaine 4% Lidocaine Solution Solution Solution Lower Limb Edema Present Right Calf (cm) 44 45 Right Ankle (cm) 20 24 06/14/22 06/21/22 13:43 13:53 Wound Center Nurse 1 #1 R knee -Combined with other wound No -Current Size (cm) - Length 1.9 1.5 -Current Size (cm) - Width 5.9 3.5 -Current Size (cm) - Depth 0.2 0.1 -Total Square Cm 11.21 5.25 -Date of Last Picture (Recall this 06/14/22 field) -Photo Taken Yes Yes -Epithelialization None Present -Tunneling Yes -Tunneling Position (O'clock) 2 7 -Tunneling Distance (cm) 0.1 2.2 -Tunneling Position #2 (O'clock) 7 -Tunneling Distance #2 (cm) 2.5 -Undermining/Tunneling No -Circular Undermining No -Change in Wound Grade/Stage -Exudate Amt Medium Medium -Exudate Type Serous Serosanguineous -Wound Margin Distinct, Thickened & Outline Rolled Under Attached -Granulation Amt Medium (34-66%) Small (1-33%) -Granulation Quality [place] -Slough/Fibrin Yes -Necrosis Amt Medium (34-66%) Large (67-100%) -Necrotic Tissue Type Adherent Slough Adherent Slough -Structure Exposed N/A -Texture (Emmy-wound Skin Appearance) Assessed, Scarring Scarring -Moisture (Emmy-wound Skin Appearance) Assessed No Abnormality -Color (Emmy-wound Skin Appearance) Assessed No Abnormality -Temperature (Emmy-wound Skin No Abnormality No Abnormality Appearance) (Pt Warm) (Pt Warm) -Tenderness on Palpation (Emmy-wound No No Skin Appearance) -Ulcer Cleansing Rinsed/ Soap and Water Irrigated with Saline -Foul Odor after Cleansing No No -Anesthetic Used 4% Lidocaine 5% Lidocaine Solution Gel Lower Limb Edema Present Yes Right Calf (cm) 45.5 Right Ankle (cm) 25.2 WC - Nurse 2 - General Ulcer CM Notes Start: 05/25/22 14:11 Freq: Status: Active Protocol: Activity Type Activity Date Activity User E-sign Co-sign Detail Recorded Client Recorded Date Recorded By Document 05/25/22 14:32 MW [id number] 05/25/22 14:39 MW Document 06/01/22 14:17 MW [id number] 06/01/22 14:22 MW Document 06/08/22 13:33 MW [id number] 06/08/22 13:36 MW Document 06/14/22 14:25 [id number] 06/14/22 14:27 JF Document 06/21/22 14:35 [id number] 06/21/22 14:39 05/25/22 06/01/22 06/08/22 14:32 14:17 13:33 Wound Center Nurse 2 #1 R knee -Time 14:33 14:17 13:34 -Correct Patient Yes Yes Yes -Correct Side, Site, Position Yes Yes Yes -Correct Procedure Yes Yes Yes -Procedure Performed Yes Yes Yes -Type of Procedure Debridement Debridement Debridement -Clinical Debridement Subcutaneous Subcutaneous Subcutaneous -Tissue Removed Subcutaneous Subcutaneous Subcutaneous -Post Debridement (cm) - Length 2.5 2.5 1.9 -Post Debridement (cm) - Width 7.3 7.0 6.4 -Post Debridement (cm) - Depth 0.3 0.3 0.1 -Total Square (Post) (cm) 18.25 17.50 12.16 -Area of Debridement (cm) - Length 2.5 2.5 1.9 -Area of Debridement (cm) - Width 7.3 7.0 6.4 -Total Square (Area) (cm) 18.25 17.50 12.16 -Tunneling Yes Yes Yes -Tunneling Position (O'clock) 2 7 2 -Tunneling Distance (cm) 1.0 7.4 1.2 -Tunneling Position #2 (O'clock) 7 2 7 -Tunneling Distance #2 (cm) 7.0 1.2 4.1 -Undermining/Tunneling No No No -Circular Undermining No No No -Wound/Ulcer Outcome Not Healed Not Healed Not Healed -Ulcer Cleansing Rinsed/ Rinsed/ Rinsed/ Irrigated with Irrigated with Irrigated with Saline Saline Saline -Foul Odor after Cleansing No No -Bioengineered Tissue No No No -Bleeding Controlled with Pressure Pressure Pressure -Treatment Response Procedure Procedure Procedure Tolerated Well Tolerated Well Tolerated Well -Offloading No No No -Debridement - Subq, 1st 20sq cm Yes Yes Yes Pain Scale: 0-10 Numeric Is Patient Pain Free? Yes Yes Yes 06/14/22 06/21/22 14:25 14:35 Wound Center Nurse 2 #1 R knee -Time 14:25 14:35 -Correct Patient Yes Yes -Correct Side, Site, Position Yes Yes -Correct Procedure Yes Yes -Procedure Performed Yes Yes -Type of Procedure Debridement Debridement -Clinical Debridement Subcutaneous Subcutaneous -Tissue Removed Subcutaneous Subcutaneous -Post Debridement (cm) - Length 1.7 1.8 -Post Debridement (cm) - Width 6.2 5.5 -Post Debridement (cm) - Depth 0.3 0.2 -Total Square (Post) (cm) 10.54 9.90 -Area of Debridement (cm) - Length 1.7 1.8 -Area of Debridement (cm) - Width 6.2 5.5 -Total Square (Area) (cm) 10.54 9.90 -Tunneling Yes Yes -Tunneling Position (O'clock) 2 7 -Tunneling Distance (cm) 0.3 2.8 -Tunneling Position #2 (O'clock) 7 -Tunneling Distance #2 (cm) 4.5 -Undermining/Tunneling No No -Circular Undermining No No -Wound/Ulcer Outcome Not Healed Not Healed -Ulcer Cleansing Rinsed/ Rinsed/ Irrigated with Irrigated with Saline Saline -Foul Odor after Cleansing No No -Bioengineered Tissue No No -Bleeding Controlled with Pressure Pressure -Treatment Response Procedure Procedure Tolerated Well Tolerated Well -Offloading No No -Debridement - Subq, 1st 20sq cm Yes Yes Pain Scale: 0-10 Numeric Is Patient Pain Free? Yes Yes WC - Nurse 3 - General Ulcer D/C NN Start: 05/25/22 14:11 Freq: Status: Active Protocol: Activity Type Activity Date Activity User E-sign Co-sign Detail Recorded Client Recorded Date Recorded By Document 05/25/22 14:27 MT [id number] 05/25/22 14:33 MT Edit Result 05/25/22 14:27 MT (1) [id number] 05/25/22 14:37 MT Document 05/30/22 10:35 AK [id number] 05/30/22 10:37 AK Document 06/01/22 14:39 KR [id number] 06/01/22 14:39 KR Edit Result 06/01/22 14:39 KR (2) [id number] 06/06/22 07:19 PL Document 06/08/22 13:46 KR [id number] 06/08/22 13:47 KR Document 06/14/22 14:36 DL [id number] 06/14/22 14:40 DL Document 06/21/22 14:47 DL [id number] 06/21/22 14:50 DL (1) Left - Compression Wrap => Calvin Wrap Right - Compression Wrap => Calvin Wrap (2) #1 R knee - NPWT Application Charge NPWT & Debridement => NPWT </= 50 sq cm (nc) => ($) 05/25/22 05/30/22 06/01/22 14:27 10:35 14:39 Wound Care Nurse 3 #1 R knee -Ulcer Cleansing Rinsed/ Soap and Water Rinsed/ Irrigated with Irrigated with Saline Saline -Foul Odor after Cleansing No -Negative Pressure Wound Therapy Continue Continue -Setting (mmHg) 150 150 -Negative Pressure is Continuous Continuous -Regranex (If Applicable) Continue -Primary Dressing Applied Optilok 6.5x10, Promogran Guerda Matter -Other Dressing -Primary Dressing Covered/Secured with Dry Gauze & Roll Gauze, Secured with Tape -NPWT Application Charge NPWT </= 50 sq NPWT </= 50 sq cm ($) cm ($) -Aquacel AG 4x4 -Optilok 6.5x10 1 -Promogran Guerda Matter 1 Left -Compression Wrap Calvin Wrap Right -Lotion applied to leg before No compression wrap -Compression Wrap Calvin Wrap Calvin Wrap -Tubular Bandage -Size of Tubigrip Used -Size E ($) -Other Treatment Response Vital Signs Temperature (97.8 F-99.1 F) 96.9 F L Temperature Source Temporal Pulse Rate (60-100) 77 Pulse Location Monitor Blood Pressure (90/60-120/80) 142/69 H Blood Pressure Mean (mm Hg) 93 Source Monitor Pain Scale: 0-10 Numeric Is Patient Pain Free? Yes Yes Yes WC - Visit Discharge Discharge Condition Stable Stable Stable Ambulatory Status Ambulatory, Ambulatory Ambulatory Wheelchair Transportation Private Auto Private Auto Private Auto Accompanied by Medication Reconcilliation completed & No Yes provided to patient/care provider Clinical Summary of Care Provided Yes Yes 06/08/22 06/14/22 06/21/22 13:46 14:36 14:47 Wound Care Nurse 3 #1 R knee -Ulcer Cleansing Rinsed/ Rinsed/ Rinsed/ Irrigated with Irrigated with Irrigated with Saline Saline Saline -Foul Odor after Cleansing No No -Negative Pressure Wound Therapy -Setting (mmHg) -Negative Pressure is -Regranex (If Applicable) -Primary Dressing Applied Aquacel AG 4x4 Aquacel AG 4x4 Aquacel AG 4x4 -Other Dressing ABD PAD -Primary Dressing Covered/Secured with Dry Gauze & Dry Gauze & Roll Gauze, Roll Gauze, Secured with Secured with Tape Tape -NPWT Application Charge -Aquacel AG 4x4 2 1 1 -Optilok 6.5x10 -Promogran Guerda Matter Left -Compression Wrap Right -Lotion applied to leg before compression wrap -Compression Wrap Calvin Wrap -Tubular Bandage Double Layer -Size of Tubigrip Used Size E -Size E ($) 2 -Other tubigrip Treatment Response Procedure Procedure Tolerated Well Tolerated Well Vital Signs Temperature (97.8 F-99.1 F) Temperature Source Pulse Rate (60-100) Pulse Location Blood Pressure (90/60-120/80) Blood Pressure Mean (mm Hg) Source Pain Scale: 0-10 Numeric Is Patient Pain Free? Yes Yes Yes WC - Visit Discharge Discharge Condition Stable Stable Stable Ambulatory Status Ambulatory Ambulatory Ambulatory Transportation Private Auto Private Auto Private Auto Accompanied by Medication Reconcilliation completed & provided to patient/care provider Clinical Summary of Care Provided Assessment/Plan Assessment/Plan (1) Ulcer of right knee: CODE(S): L97.819 - Non-pressure chronic ulcer of other part of right lower leg with unspecified severity (2) Multiple sclerosis: CODE(S): G35 - Multiple sclerosis (3) Chronic anticoagulation: CODE(S): Z79.01 - terminal carman (current) use of anticoagulants PLAN: Plan Patient was evaluated at the wound center today, subcutaneous debridement was performed as previously documented. Wound culture obtained 04/27/22 which was positive for Staphylococcus haemolyticus and MRSE. Completed Doxycycline. She has an operative debridement scheduled next week with Dr. Klein. Wound care - Aquacel-Ag to the ulcer with it packed into the tunnel at 7 o'clock. Cover with gauze. Do this dressing daily after washing with soap and water. Double Tubigrip up above her knee for compression. Encouraged increase protein intake to help with wound healing. Follow up two weeks, unless Dr. Klein wants her seen next week, then we will arrange for her to come in next Sunday to be evaluated before the weekend.
== END 2022-06-23 23:59 | disposition home or self-care (01) ==
LOC: WC 14:00
PROVIDERS: PCP Internal Medicine; Visit Provider Nurse Practitioner Family
DX: S81.011D Laceration without foreign body, right knee, subsequent encounter (principal); G35 Multiple sclerosis; N18.30 Chronic kidney disease, stage 3 unspecified; Z86.73 Personal history of transient ischemic attack (TIA), and cerebral infarction without residual deficits; Z87.891 Personal history of nicotine dependence; Z79.01 Long term (current) use of anticoagulants; Z86.718 Personal history of other venous thrombosis and embolism; Z86.711 Personal history of pulmonary embolism; Z79.899 Other long term (current) drug therapy; W19.XXXD Unspecified fall, subsequent encounter; T81.33XA Disruption of traumatic injury wound repair, initial encounter; Y84.9 Medical procedure, unspecified as the cause of abnormal reaction of the patient, or of later complication, without mention of misadventure at the time of the procedure
CPT/HCPCS: 11042; 97605

== ENCOUNTER 2022-06-27 10:02 | Day surgery (SDC) | payer MEDICARE, SELFPAY ==
[2022-06-27] MEDS: Lactated Ringers 1,000 ML 15 ML IV (10:15)
[2022-06-27 10:35] VITALS: BP 147/73; PULSE 69; RESP 18; TEMP 36.3; O2SAT 97; BMI 42.5
--- NOTE | 2022-06-27 11:45 | PCM.HP.BLA ---
History and Physical Intake Visit Reasons:?surgical consult Chief Complaint: 1 WK FU Allergies No Known Allergies Allergy (Verified 06/08/22 15:14) Medications calcium carbonate 600 mg-vitamin D3 20 mcg (800 unit) chewable tablet (Caltrate 600 plus D) 1 tab PO BID 06/20/21 [History Confirmed 06/08/22] escitalopram oxalate 10 mg tablet (Lexapro) 10 mg PO DAILY #90 tabs 01/05/22 [Rx Confirmed 06/08/22] lisinopril 40 mg tablet 40 mg PO DAILY #90 tabs 01/05/22 [Rx Confirmed 06/08/22] atorvastatin 40 mg tablet 40 mg PO QHS #90 tabs 02/13/22 [Rx Confirmed 06/08/22] ocrelizumab 30 mg/mL intravenous solution (Ocrevus) mg .Route [id number] 04/17/22 [History Confirmed 06/08/22] levothyroxine 88 mcg tablet 88 mcg PO DAILY #90 tabs 05/24/22 [Rx Confirmed 06/08/22] PFSH Medical History? Anemia Flu vaccine need Health care maintenance History of DVT (deep vein thrombosis) History of TIA (transient ischemic attack) Hyperlipemia Hypertension Hypothyroidism Multiple sclerosis Seasonal allergies Skin cancer Traumatic open wound of right lower leg with delayed healing Surgical History? History of appendectomy History of hysterectomy Family History? Father Arthritis Heart diseaseMother Hypertension Hyperlipemia Kidney disease Social History? Smoking Status:? Former smoker quit date: 09/24/15 Tobacco: How many years used:? 20 alcohol intake:? current alcohol intake frequency: holidays/special occasions only substance use type:? does not use what type of physical activity do you participate in:? none HPI HPI HPI: FERN GILLIS, is a 61 F who presents to the office today for evaluation of right lower leg wound after fall. Has been seen at wound care, and mostly doing well. She does have two areas; 2 o'clock and 7 o'clock that have superficial tunneling. Persistent serous drainage from both locations, no purulence. ROS General General: Yes fatigue; No weight change, appetite, colon cancer, breast cancer or weakness HEENT HEENT: No difficulty swallowing, eye injury, eye surgery, swollen glands or hoarseness Endo Endocrine: Yes thyroid disease; No diabetes mellitus, thyroid cancer, Hair loss, heat intolerance or cold intolerance Skin Skin: No rash or changing moles Musc Musculoskeletal: No back problems, arthritis, rheumatoid arthritis, gout or joint pain Cardio Cardiovascular: Yes high blood pressure; No murmur, pacemaker, heart disease, atrial fibrillation, heart attack, heart stent, palpitations, shortness of breat with exertion or chest pain Psych Psychiatric: Yes depression and anxiety; No hearing voices Resp Respiratory: No shortness of breath, No sleep apnea, No cough, No COPD, No asthma, No emphysema and No wheezing Gastro Gastrointestinal: No abdominal pain, No nausea or vomiting, No diarrhea, No constipation, No blood in stool, No acid reflux, No hemorrhoids, No ulcers, No gallbladder problem and No black,tarry stools Paresh Hematologic: No blood thinners, No blood disorders, No bleeding, No anemia and No blood clots Neuro Neurologic: No system reviewed and no additional complaints, except as documented, No as per HPI, No abnormal gait, No abnormal hearing, No abnormal movements, No abnormal speech, No behavioral changes, No burning sensations, No confusion, No convulsions, No disequilibrium, No dizziness, No localized weakness, No frequent falls, No headache(s), No lack of coordination, No loss of vision, No memory loss, No numbness, No other visual disturbances, No radicular pain, No restless legs, No sensory deficit, No syncope, Yes tingling, No tremor(s), No weakness and No other Exam Const General: cooperative, healthy appearing, comfortable, no acute distress and well developed Nutritional Appearance: well nourished Orientation: alert, awake and oriented x3 HENMT Head: normocephalic and atraumatic Ears: hearing grossly normal bilaterally Nose: external nose normal Eyes General: appearance normal, both eyes and all related structures EOM: EOM intact bilaterally Neck Neck: normal visual inspection, full ROM, no lymphadenopathy and trachea midline Thyroid: thyroid normal Lymphatic: no lymphadenopathy noted Resp Effort & Inspection: normal respiratory effort, able to speak in complete sentences, symmetric chest movement, no audible wheezes, not labored, no stridor and no use of accessory muscles Auscultation: clear to auscultation bilaterally Cardio Rate: regular rate Rhythm: regular rhythm Heart Sounds: no murmurs Bruits: no carotid bruits Pulses: brachial pulses present, radial pulses present, popliteal pulses present, posterior tibial pulses present and dorsalis pedis present Skin General: no rashes or lesions noted and no erythema Wounds: wounds noted (right anterior knee wound, healthy granulation 100% base, tunneling) Neuro Cranial Nerves: CN's II-XI intact bilaterally and EOM intact bilaterally Speech: speech normal Gait: normal gait Motor: strength 5/5 throughout Sensory Exam: no sensory deficits noted Extremities Pulses: Normal: Right Dorsalis Pedis Pulse, Left Dorsalis Pedis Pulse, Right Posterior Tibial Pulse and Left Posterior Tibial Pulse Lower Extremity Edema: None: Bilateral Psych Appearance: grossly normal and well kempt Mental Status: mental status grossly normal Mood: congruent mood Speech and Movement: speech and movement normal Thought Content: normal Judgment: judgment good Coding Level of Care Code Off vis,new,level 3 Diagnoses Traumatic open wound of right lower leg with delayed healing? S81.801D Assessment and Plan Assessment and Plan (1) Traumatic open wound of right lower leg with delayed healing: ?Status:?Chronic ?Plan: -will debride in OR, unroof the tunneled sections
[2022-06-27] MEDS: Thrombin 5,000 IU Kit (PSA) 5,000 IU Vial 5000 IU TOPICAL (12:17)
[2022-06-27] MEDS: Lidocaine 1% (30 ml sdv) 30 ML Vial (12:17)
--- NOTE | 2022-06-27 12:19 | DCINST_ITS ---
Discharge Instructions Diet Discharge Diet: No restrictions Activity Return to work on:: 06/29/22January shower in (days): 1 Weight Bearing Status: Weight bearing as tolerated Dressing / Incision Call your doctor if your incision/area has: Increased Pain/ Swelling, Increased Redness and Foul Smelling Discharge Call your doctor if you observe: Fever of 101 or Higher Change Dressing in: 1 day Follow Up Care Test Results: Test results from this visit will be discussed in further detail at your follow- up appointment, if applicable. Discharge Plan Admission Attending Provider: Rufino Klein Primary Care Provider: Xiomy Duran Discharge Orders/Prescriptions Prescriptions: New oxycodone-acetaminophen [Percocet] 5-325 mg tablet 1 tab PO Q8H PRN (Reason: pain) 2 Days Qty: 7 0RF Continued atorvastatin 40 mg tablet 40 mg PO QHS Qty: 90 3RF Ocrevus 30 mg/mL solution 30 mg .Route [id number] Rx Instructions: Infusion 6 months. calcium 600 mg Capsule 600 mg PO BID cholecalciferol (vitamin D3) [Vitamin D3] 25 mcg (1,000 unit) Capsule 25 mcg PO MOTUWETHFRSA lisinopril 40 mg tablet 40 mg PO DAILY Qty: 90 3RF escitalopram oxalate [Lexapro] 10 mg tablet 10 mg PO DAILY Qty: 90 1RF levothyroxine 88 mcg tablet 88 mcg PO DAILY Qty: 90 1RF Referrals / Follow Up: Xiomy Duran MD [Primary Care Provider] - Disposition Disposition (needs filled in before D/C Order can be placed): Home, Self Care
[2022-06-27 12:26] VITALS: BP 147/73; BP 90/59; PULSE 98; RESP 18; TEMP 36.6; O2SAT 96
[2022-06-27 12:30] VITALS: BP 109/65; BP 147/73; PULSE 102; RESP 18; O2SAT 98
[2022-06-27 12:35] VITALS: BP 116/82; BP 147/73; PULSE 101; RESP 18; O2SAT 99
[2022-06-27 12:40] VITALS: BP 135/80; BP 144/76; BP 147/73; PULSE 90; PULSE 92; RESP 18; TEMP 36.3; O2SAT 100; O2SAT 99
[2022-06-27 13:21] VITALS: BP 147/73
--- NOTE | 2022-06-28 13:14 | PCM.OPRPT ---
Report of Operation Date of Procedure: 06/27/22 Pre-Operative Diagnosis: Nonhealing right lower extremity wound after fall Post-Operative Diagnosis: Same Surgery/Procedure Performed:: Debridement right lower extremity wound skin and subcutaneous tissue, 2 x 3 cm Surgeon: Rufino Klein Type of Anesthesia: MAC Estimated Blood Loss (mL): 5 Description of Procedure: HPI: Patient is a 61-year-old female who previously suffered a fall the wound of her patella. This is been slow to heal despite local efforts and has significant mount of tunneling in the inferior lateral aspect which is concerning for future abscess potential formation. She taken now for debridement and unroofing of the undermined area. Description of procedure: Upon obtaining informed consent and verification of correct patient procedure site patient taken the operating room where she was positioned prepped and draped in usual sterile fashion. MAC anesthesia was then administered by anesthesia and timeout was performed. The wound was probed and the undermined area laterally was identified. The skin overlying was then incised with 10 blade the entire length of the undermined area. The skin edges were then excised to prevent reclosure of the cavity. The wound bed was then debrided of fibrinous exudate with a curette. Total debridement area 2 cm x 3 cm skin and subcutaneous tissue. Wound was then irrigated with saline and packed with gauze followed by Kerlix. The inclusion the case patient was taken recovery room with anticipated discharge home.
== END 2022-06-27 13:26 | disposition home or self-care (01) ==
LOC: SDC 10:03 → AC 10:05
PROVIDERS: PCP Internal Medicine; Referring Provider Surgery Trauma Surgery; Visit Provider Surgery Trauma Surgery
PROC: (CPT 17999; principal; 2022-06-27 12:50)
DX: S81.801D Unspecified open wound, right lower leg, subsequent encounter (principal); N18.30 Chronic kidney disease, stage 3 unspecified; Z87.891 Personal history of nicotine dependence; W19.XXXD Unspecified fall, subsequent encounter; E78.5 Hyperlipidemia, unspecified; I12.9 Hypertensive chronic kidney disease with stage 1 through stage 4 chronic kidney disease, or unspecified chronic kidney disease; Z79.01 Long term (current) use of anticoagulants; Z86.718 Personal history of other venous thrombosis and embolism; Z86.73 Personal history of transient ischemic attack (TIA), and cerebral infarction without residual deficits; E03.9 Hypothyroidism, unspecified
CPT/HCPCS: 17999; J7120; J2405

== ENCOUNTER 2022-07-18 13:30 | Outpatient (RCR) | payer MEDICARE, SELFPAY ==
[2022-06-24 01:34] VITALS: BP 153/91; PULSE 75; RESP 20; TEMP 36.9; BMI 41.6
[2022-07-05 13:12] VITALS: BP 144/76; PULSE 58; RESP 20; TEMP 36.9; BMI 41.6
--- NOTE | 2022-07-05 16:59 | PN.PCM_ITS ---
History of Present Illness Date of Service: 07/05/22 Chief Complaint: Non healing right knee wound History of Wound: Patient is a 61-year-old female who presents for follow-up following right knee. She fell on 04/03/2022 and required sutures. After the sutures removed her wound started to dehisce. She was to see her PCP, Dr. Duran, who referred her to the wound center. She also has a significant history of MS and she was just recently started on Ocrevus and received half a dose for her first infusion. She has had increased falls recently and she is now walking with a walker. She states that her clinic for management of her MS. Her other medical history is hypothyroidism, CKD stage III, TIA, PE, and DVT and is on blood thinners. She quit smoking 5 years ago. On 06/27/22 - She had debridement right lower extremity wound skin and subcutaneous tissue 2 x [address] Klein. Wound care - Moistened Aquacel-Ag packed covered with adaptic and topped with gauze daily. Wound culture obtained on 04/27/22 which is positive for Staphylococcus haemolyticus, MRSE. They were treated with Doxycycline. Today she denies fever, chills, nausea, vomiting. She states her appetite is good. Progress of Wound: Right knee ulcer is improving. The area where the tunnel was located has been unroofed and looks beefy pink. Right leg edema is +1. Objective Data Objective Data Vital Signs: Vital Signs Temp Pulse Resp BP 98.5 F 58 L 20 H 144/76 H 07/05/22 13:12 07/05/22 13:12 07/05/22 13:12 07/05/22 13:12 Weight: 282 lb Body Mass Index (BMI) 41.6 Charges/Coding Procedures Integumentary [id number]: [id number] Gretel subq tissue 20 sq cm/< Debridement Note Debridement Note Wound debrided: knee ulcer Laterality: Right Wound Grade/Stage: Stage III Type of Debridement: Excisional debridement Anesthesia Used: 4% Lidocaine Solution and 5% Lidocaine Gel Depth: Down to and including healthy tissue and in the subcutaneous layer Percentage of wound debrided: 100 Instrument Used: 5mm curette Tissue Removed: Devitalized tissue and slough Severity: Fat Layer Exposed Amount of bleeding with debridement: Mild Bleeding Controlled with: Pressure and Compression and gauze Patient tolerated procedure: Patient tolerated procedure well Post-Debridement Measurements and Additional Note: Post-Debridement Measurements/Treatment [facility] - Nurse 1 - General Ulcer Assessment Start: 07/05/22 13:12 Freq: Status: Active Protocol: ATA Activity Type Activity Date Activity User E-sign Co-sign Detail Recorded Client Recorded Date Recorded By Document 07/05/22 13:12 DL [id number] 07/05/22 13:20 DL 07/05/22 13:12 WC - Today's Visit Information Type of service Follow-up Visit (Physician/CHIEF RISK OFFICER ) Arrival Mode Ambulatory Transfer Assistance None Patient Identification Verified (Name & Yes ) Patient Requires Transmission-Based No Precautions Height and Weight Body Mass Index (BMI) 41.6 BMI Classification Obese Vital Signs Temperature (97.8 F-99.1 F) 98.5 F Temperature Source Temporal Pulse Rate (60-100) 58 L Pulse Location Monitor Respiratory Rate (12-18) 20 H Respiratory rate source Observation Blood Pressure (90/60-120/80) 144/76 H Blood Pressure Mean (mm Hg) 98 Source Monitor History Since Last Visit- (Skip if this is Patient's initial visit) Have you changed medications since your No last visit? Any new allergies or adverse reactions No Had a fall/change in ADL's that may No increase risk of falls Signs or symptoms of abuse and/or No neglect since last visit Have you been in the hospital since your No last visit? Has dressing in place as prescribed Yes Has compression in place as prescribed Yes Has offloadiing in place as prescribed Yes Experienced any changes in pain level or No management Pain Scale: 0-10 Numeric Is Patient Pain Free? Yes - Nurse 1 - General Ulcer Measurement Start: 07/05/22 13:12 Freq: Status: Active Protocol: Activity Type Activity Date Activity User E-sign Co-sign Detail Recorded Client Recorded Date Recorded By Document 07/05/22 13:12 DL [id number] 07/05/22 13:20 DL 07/05/22 13:12 Wound Center Nurse 1 #1 R knee -Current Size (cm) - Length 4 -Current Size (cm) - Width 3.2 -Current Size (cm) - Depth 0.4 -Total Square Cm 12.8 -Photo Taken Yes -Exudate Amt Medium -Exudate Type Serosanguineous -Wound Margin Distinct, Outline Attached -Granulation Amt None Present (0 %) -Necrosis Amt Large (67-100%) -Necrotic Tissue Type Adherent Slough -Structure Exposed N/A -Texture (Emmy-wound Skin Appearance) Scarring -Moisture (Emmy-wound Skin Appearance) No Abnormality -Color (Emmy-wound Skin Appearance) No Abnormality -Temperature (Emmy-wound Skin No Abnormality Appearance) (Pt Warm) -Tenderness on Palpation (Emmy-wound No Skin Appearance) -Ulcer Cleansing Soap and Water -Foul Odor after Cleansing No -Anesthetic Used 5% Lidocaine Gel WC - Nurse 2 - General Ulcer CM Notes Start: 07/05/22 13:12 Freq: Status: Active Protocol: Activity Type Activity Date Activity User E-sign Co-sign Detail Recorded Client Recorded Date Recorded By Document 07/05/22 13:31 [id number] 07/05/22 13:33 07/05/22 13:31 Wound Center Nurse 2 -Time 13:31 -Correct Patient Yes -Correct Side, Site, Position Yes -Correct Procedure Yes -Procedure Performed Yes -Type of Procedure Debridement -Clinical Debridement Subcutaneous -Tissue Removed Subcutaneous -Post Debridement (cm) - Length 3.5 -Post Debridement (cm) - Width 2.5 -Post Debridement (cm) - Depth 0.5 -Total Square (Post) (cm) 8.75 -Area of Debridement (cm) - Length 3.5 -Area of Debridement (cm) - Width 2.5 -Total Square (Area) (cm) 8.75 -Tunneling No -Undermining/Tunneling No -Circular Undermining No -Wound/Ulcer Outcome Not Healed -Ulcer Cleansing Rinsed/ Irrigated with Saline -Foul Odor after Cleansing No -Bioengineered Tissue No -Bleeding Controlled with Pressure -Treatment Response Procedure Tolerated Well -Offloading No -Debridement - Subq, 1st 20sq cm Yes Pain Scale: 0-10 Numeric Is Patient Pain Free? Yes - Nurse 3 - General Ulcer D/C NN Start: 07/05/22 13:12 Freq: Status: Active Protocol: Activity Type Activity Date Activity User E-sign Co-sign Detail Recorded Client Recorded Date Recorded By Document 07/05/22 13:[address] [facility] [id number] 07/05/22 13:[address] [facility] 07/05/22 13:41 Wound Care Nurse 3 #1 R knee -Ulcer Cleansing Rinsed/ Irrigated with Saline -Foul Odor after Cleansing No -Primary Dressing Applied Aquacel AG 4x4, NonAdherent Contact Layer -Aquacel AG 4x4 1 Right -Other pt says she has plenty tubis at home and will apply Treatment Response Procedure Tolerated Well Pain Scale: 0-10 Numeric Is Patient Pain Free? Yes WC - Visit Discharge Discharge Condition Stable Ambulatory Status Ambulatory Transportation Private Auto Accompanied by husb Assessment/Plan Assessment/Plan (1) Ulcer of right knee: CODE(S): L97.819 - Non-pressure chronic ulcer of other part of right lower leg with unspecified severity (2) Multiple sclerosis: CODE(S): G35 - Multiple sclerosis (3) Chronic anticoagulation: CODE(S): Z79.01 - [facility] (current) use of anticoagulants PLAN: Plan Patient was evaluated at the wound center today, subcutaneous debridement was performed as previously documented. Wound culture obtained 04/27/22 which was positive for Staphylococcus haemolyticus and MRSE. Completed Doxycycline. She has an operative debridement scheduled next week with Dr. Klein. Wound care - Moistened Aquacel-Ag to the ulcer topped with adaptic and covered with gauze. Do this dressing daily after washing with soap and water. Double Tubigrip up above her knee for compression. Encouraged increase protein intake to help with wound healing. Follow up two weeks. Call or come in sooner if develop any questions or concerns.
[2022-07-18 13:18] VITALS: BP 158/74; PULSE 81; RESP 18; TEMP 36.3; BMI 41.6
--- NOTE | 2022-07-18 16:01 | PN.PCM_ITS ---
History of Present Illness Date of Service: 07/18/22 Chief Complaint: Non healing right knee wound History of Wound: Patient is a 61-year-old female who presents for follow-up following right knee. She fell on 04/03/2022 and required sutures. After the sutures removed her wound started to dehisce. She was to see her PCP, Dr. Duran, who referred her to the wound center. She also has a significant history of MS and she was just recently started on Ocrevus and received half a dose for her first infusion. She has had increased falls recently and she is now walking with a walker. She states that her clinic for management of her MS. Her other medical history is hypothyroidism, CKD stage III, TIA, PE, and DVT and is on blood thinners. She quit smoking 5 years ago. On 06/27/22 - She had debridement right lower extremity wound skin and subcutaneous tissue 2 x [address] Klein. Wound care - Moistened Aquacel-Ag packed covered with adaptic and topped with gauze daily. Wound culture obtained on 04/27/22 which is positive for Staphylococcus haemolyticus, MRSE. They were treated with Doxycycline. Today she denies fever, chills, nausea, vomiting. She states her appetite is good. Progress of Wound: Right knee ulcer is improving, it is smaller in size, the wound bed is beefy pink in color. Objective Data Objective Data Vital Signs: Vital Signs Temp Pulse Resp BP 97.4 F L 81 18 158/74 H 07/18/22 13:18 07/18/22 13:18 07/18/22 13:18 07/18/22 13:18 Weight: 282 lb Body Mass Index (BMI) 41.6 Charges/Coding Procedures Integumentary 111xxx-113xx: 08605 Gretel subq tissue 20 sq cm/< Debridement Note Debridement Note Wound debrided: knee ulcer Laterality: Right Wound Grade/Stage: Stage III Type of Debridement: Excisional debridement Anesthesia Used: 4% Lidocaine Solution and 5% Lidocaine Gel Depth: Down to and including healthy tissue and in the subcutaneous layer Percentage of wound debrided: 100 Instrument Used: 5mm curette Tissue Removed: Devitalized tissue and slough Severity: Fat Layer Exposed Amount of bleeding with debridement: Mild Bleeding Controlled with: Pressure and Compression and gauze Patient tolerated procedure: Patient tolerated procedure well Post-Debridement Measurements and Additional Note: Post-Debridement Measurements/Treatment WC - Nurse 1 - General Ulcer Assessment Start: 07/05/22 13:12 Freq: Status: Active Protocol: ATA Activity Type Activity Date Activity User E-sign Co-sign Detail Recorded Client Recorded Date Recorded By Document 07/05/22 13:12 DL [id number] 07/05/22 13:20 DL Document 07/18/22 13:18 DL [id number] 07/18/22 13:22 DL 07/05/22 07/18/22 13:12 13:18 WC - Today's Visit Information Type of service Follow-up Visit Follow-up Visit (Physician/FURNACE FITTER (Physician/FURNACE FITTER ) ) Arrival Mode Ambulatory Ambulatory Transfer Assistance None None Patient Identification Verified (Name & Yes Yes ) Patient Requires Transmission-Based No No Precautions Height and Weight Body Mass Index (BMI) 41.6 41.6 BMI Classification Obese Obese Vital Signs Temperature (97.8 F-99.1 F) 98.5 F 97.4 F L Temperature Source Temporal Temporal Pulse Rate (60-100) 58 L 81 Pulse Location Monitor Monitor Respiratory Rate (12-18) 20 H 18 Respiratory rate source Observation Blood Pressure (90/60-120/80) 144/76 H 158/74 H Blood Pressure Mean (mm Hg) 98 102 Source Monitor Monitor History Since Last Visit- (Skip if this is Patient's initial visit) Have you changed medications since your No No last visit? Any new allergies or adverse reactions No No Had a fall/change in ADL's that may No No increase risk of falls Signs or symptoms of abuse and/or No No neglect since last visit Have you been in the hospital since your No No last visit? Has dressing in place as prescribed Yes Yes Has compression in place as prescribed Yes N/A Has offloadiing in place as prescribed Yes N/A Experienced any changes in pain level or No No management Pain Scale: 0-10 Numeric Is Patient Pain Free? Yes Yes - Nurse 1 - General Ulcer Measurement Start: 07/05/22 13:12 Freq: Status: Active Protocol: Activity Type Activity Date Activity User E-sign Co-sign Detail Recorded Client Recorded Date Recorded By Document 07/05/22 13:12 DL [id number] 07/05/22 13:20 DL Document 07/18/22 13:18 DL [id number] 07/18/22 13:22 DL 07/05/22 07/18/22 13:12 13:18 Wound Center Nurse 1 #1 R knee -Current Size (cm) - Length 4 2.5 -Current Size (cm) - Width 3.2 1.8 -Current Size (cm) - Depth 0.4 0.3 -Total Square Cm 12.8 4.50 -Photo Taken Yes Yes -Exudate Amt Medium Small -Exudate Type Serosanguineous Serosanguineous -Wound Margin Distinct, Distinct, Outline Outline Attached Attached -Granulation Amt None Present (0 Large (67-100%) %) -Granulation Quality Pale,[place] -Necrosis Amt Large (67-100%) Small (1-33%) -Necrotic Tissue Type Adherent Slough Adherent Slough -Structure Exposed N/A -Texture (Emmy-wound Skin Appearance) Scarring Scarring -Moisture (Emmy-wound Skin Appearance) No Abnormality No Abnormality -Color (Emmy-wound Skin Appearance) No Abnormality No Abnormality -Temperature (Emmy-wound Skin No Abnormality No Abnormality Appearance) (Pt Warm) (Pt Warm) -Tenderness on Palpation (Emmy-wound No No Skin Appearance) -Ulcer Cleansing Soap and Water Soap and Water -Foul Odor after Cleansing No No -Anesthetic Used 5% Lidocaine 5% Lidocaine Gel Gel Right Calf (cm) 44 Right Ankle (cm) 24.5 WC - Nurse 2 - General Ulcer CM Notes Start: 07/05/22 13:12 Freq: Status: Active Protocol: Activity Type Activity Date Activity User E-sign Co-sign Detail Recorded Client Recorded Date Recorded By Document 07/05/22 13:31 [id number] 07/05/22 13:33 Document 07/18/22 13:33 [id number] 07/18/22 13:34 07/05/22 07/18/22 13:31 13:33 Wound Center Nurse 2 #1 R knee -Time 13:31 13:33 -Correct Patient Yes Yes -Correct Side, Site, Position Yes Yes -Correct Procedure Yes Yes -Procedure Performed Yes Yes -Type of Procedure Debridement Debridement -Clinical Debridement Subcutaneous Subcutaneous -Tissue Removed Subcutaneous Subcutaneous -Post Debridement (cm) - Length 3.5 3.1 -Post Debridement (cm) - Width 2.5 2.4 -Post Debridement (cm) - Depth 0.5 0.3 -Total Square (Post) (cm) 8.75 7.44 -Area of Debridement (cm) - Length 3.5 3.1 -Area of Debridement (cm) - Width 2.5 2.4 -Total Square (Area) (cm) 8.75 7.44 -Tunneling No No -Undermining/Tunneling No No -Circular Undermining No No -Wound/Ulcer Outcome Not Healed Not Healed -Ulcer Cleansing Rinsed/ Rinsed/ Irrigated with Irrigated with Saline Saline -Foul Odor after Cleansing No No -Bioengineered Tissue No No -Bleeding Controlled with Pressure Pressure -Treatment Response Procedure Procedure Tolerated Well Tolerated Well -Offloading No No -Debridement - Subq, 1st 20sq cm Yes Yes Pain Scale: 0-10 Numeric Is Patient Pain Free? Yes Yes - Nurse 3 - General Ulcer D/C NN Start: 07/05/22 13:12 Freq: Status: Active Protocol: Activity Type Activity Date Activity User E-sign Co-sign Detail Recorded Client Recorded Date Recorded By Document 07/05/22 13:41 [facility] [id number] 07/05/22 13:43 [facility] Document 07/18/22 13:43 [facility] [id number] 07/18/22 13:44 [facility] 07/05/22 07/18/22 13:41 13:43 Wound Care Nurse 3 #1 R knee -Ulcer Cleansing Rinsed/ Rinsed/ Irrigated with Irrigated with Saline Saline -Foul Odor after Cleansing No No -Primary Dressing Applied Aquacel AG 4x4, Aquacel AG 2x2, NonAdherent NonAdherent Contact Layer Contact Layer -Primary Dressing Covered/Secured with Dry Gauze, Secured with Tape -Aquacel AG 4x4 1 -Aquacel AG 2x2 1 Right -Other pt says she has pt refused plenty tubis at home and will apply Treatment Response Procedure Procedure Tolerated Well Tolerated Well Pain Scale: 0-10 Numeric Is Patient Pain Free? Yes Yes - Visit Discharge Discharge Condition Stable Stable Ambulatory Status Ambulatory Ambulatory Transportation Private Auto Private Auto Accompanied by radhab Assessment/Plan Assessment/Plan (1) Ulcer of right knee: CODE(S): L97.819 - Non-pressure chronic ulcer of other part of right lower leg with unspecified severity (2) Multiple sclerosis: CODE(S): G35 - Multiple sclerosis (3) Chronic anticoagulation: CODE(S): Z79.01 - USP (current) use of anticoagulants PLAN: Plan Patient was evaluated at the wound center today, subcutaneous debridement was performed as previously documented. Wound culture obtained 04/27/22 which was positive for Staphylococcus haemolyticus and MRSE. Completed Doxycycline. She has an operative debridement on 06/27/[address] Klein. He unroofed the tunnel and she is healing well. Wound care - Moistened Silver alginate covered with adaptic and topped with gauze to the ulcer daily. Do this dressing daily after washing with soap and water. Double Tubigrip up above her knee for compression. Encouraged increase protein intake to help with wound healing. Follow up one week. Call or come in sooner if develop any questions or concer ns.
== END 2022-07-24 23:59 | disposition home or self-care (01) ==
LOC: WC 13:30
PROVIDERS: PCP Internal Medicine; Visit Provider Nurse Practitioner Family
DX: L97.812 Non-pressure chronic ulcer of other part of right lower leg with fat layer exposed (principal); G35 Multiple sclerosis; N18.30 Chronic kidney disease, stage 3 unspecified; R60.0 Localized edema; Z79.01 Long term (current) use of anticoagulants; Z87.891 Personal history of nicotine dependence; Z86.73 Personal history of transient ischemic attack (TIA), and cerebral infarction without residual deficits; Z86.718 Personal history of other venous thrombosis and embolism; E03.9 Hypothyroidism, unspecified
CPT/HCPCS: 11042

== ENCOUNTER → 2022-08-15 | Outpatient (CLI) | payer MEDICARE, SELFPAY ==
[2022-08-15 15:31] LABS: Absolute Lymphocyte Count 0.86 X10^3/uL (0.83-4.51); Absolute Neutrophil Count 3.6 X10^3/uL (2.0-7.7); Basophil# 0.06 X10^3/uL; Basophil% 1.2 % (0-1); Eosinophil# 0.28 X10^3/uL; Eosinophils% 5.4 % (0-5); Hematocrit 34.3 % (37-47); Hemoglobin 10.7 g/dL (12.0-15.0); Lymphocyte # 0.86 X10^3/ul (0.83-4.51); Lymphocyte % 16.7 % (19-41); Mean Corp Hgb Conc 31.2 g/dL (32-36); Mean Corpuscular Hgb 27.4 pg (27.0-32.0); Mean Corpuscular Volume 87.9 fL (81-99); Mean Platelet Vol. 11.3 fl (6.2-12.0); Monocyte# 0.36 X10^3/uL; NRBC Flagged by Analyzer 0 % (0-5); Neutrophil # 3.56 X10^3/uL (2.7-7.7); Neutrophil % 69.1 % (47-70); Platelet Count 254 K/mm3 (150-450); RBC Distribution Width CV 15.5 % (11.6-14.6); RBC Distribution Width SD 49.3 fl (35.1-43.9); White Blood Count 5.2 K/mm3 (4.4-11.0)
[2022-08-15 16:06] LABS: ALB/GLOB Ratio 0.9 RATIO (0.9-2.4); AST(SGOT) 13 U/L (15-37); Alanine Aminotransfer ALT/SGPT 21 U/L (13-56); Albumin, Serum 3.2 g/dL (3.2-5.0); Alkaline Phosphatase 110 U/L (45-117); Anion Gap 7 (5-15); BUN 21 mg/dL (7-18); BUN/Creat Ratio 16.5 RATIO (10-20); Calcium,Total 9.4 mg/dL (8.5-10.1); Chloride 108 mmol/L (98-107); Creatinine, Serum 1.27 mg/dL (0.55-1.02); EST Glomerular Filtration Rate 45 mL/min (>60); Est Glom Filt Rate - Afr Amer 55 mL/min (>60); Globulin 3.4 g/dL (2.2-4.2); Glucose 91 mg/dL (74-106); Potassium 4.2 mmol/L (3.5-5.1); Protein, Total 6.6 g/dL (6.4-8.2); Sodium Level 143 mmol/L (136-145)
[2022-08-17 09:08] LABS: Immunoglobulin A 176 mg/dL (87-352); Immunoglobulin G 761 mg/dL (586-1602)
[2022-08-17 20:42] LABS: Immunoglobulin M 36 mg/dL (26-217)
== END | disposition home or self-care (01) ==
PROVIDERS: PCP Internal Medicine; Referring Provider Internal Medicine; Visit Provider Internal Medicine
DX: Z79.899 Other long term (current) drug therapy (principal)
CPT/HCPCS: 11042; 36415; 80053; 82784; 85025

== ENCOUNTER 2022-08-22 14:00 | Outpatient (RCR) | payer MEDICARE, SELFPAY ==
[2022-07-25 00:31] VITALS: BP 158/74; PULSE 81; RESP 18; TEMP 36.3; BMI 41.6
[2022-07-25 13:08] VITALS: BP 164/92; PULSE 78; RESP 18; TEMP 36.1; BMI 41.6
--- NOTE | 2022-07-25 17:04 | PN.PCM_ITS ---
History of Present Illness Date of Service: 07/25/22 Chief Complaint: Non healing right knee wound History of Wound: Patient is a 62-year-old female who presents for follow-up following right knee. She fell on 04/03/2022 and required sutures. After the sutures removed her wound started to dehisce. She was to see her PCP, Dr. Duran, who referred her to the wound center. She also has a significant history of MS and she was just recently started on Ocrevus and received half a dose for her first infusion. She has had increased falls recently and she is now walking with a walker. She states that her clinic for management of her MS. Her other medical history is hypothyroidism, CKD stage III, TIA, PE, and DVT and is on blood thinners. She quit smoking 5 years ago. On 06/27/22 - She had debridement right lower extremity wound skin and subcutaneous tissue 2 x [address] Klein. Wound care - Moistened Aquacel-Ag packed covered with adaptic and topped with gauze daily. Wound culture obtained on 04/27/22 which is positive for Staphylococcus haemolyticus, MRSE. They were treated with Doxycycline. Today she denies fever, chills, nausea, vomiting. She states her appetite is good. Progress of Wound: Right knee ulcer is improving, it is smaller in size, the wound bed is beefy pink in color.? Objective Data Objective Data Vital Signs: Vital Signs Temp Pulse Resp BP 97 F L 78 18 164/92 H 07/25/22 13:08 07/25/22 13:08 07/25/22 13:08 07/25/22 13:08 Weight: 282 lb Body Mass Index (BMI) 41.6 Charges/Coding Procedures Integumentary 111xxx-113xx: 63553 Gretel subq tissue 20 sq cm/< Debridement Note Debridement Note Wound debrided: knee ulcer Laterality: Right Wound Grade/Stage: Stage III Type of Debridement: Excisional debridement Anesthesia Used: 4% Lidocaine Solution and 5% Lidocaine Gel Depth: Down to and including healthy tissue and in the subcutaneous layer Percentage of wound debrided: 100 Instrument Used: 5mm curette Tissue Removed: Devitalized tissue and slough Severity: Fat Layer Exposed Amount of bleeding with debridement: Mild Bleeding Controlled with: Pressure and Compression and gauze Patient tolerated procedure: Patient tolerated procedure well Post-Debridement Measurements and Additional Note: Post-Debridement Measurements/Treatment [facility] - Nurse 1 - General Ulcer Assessment Start: 07/25/22 13:07 Freq: Status: Active Protocol: ATA Activity Type Activity Date Activity User E-sign Co-sign Detail Recorded Client Recorded Date Recorded By Document 07/25/22 13:08 DL [id number] 07/25/22 13:15 DL 07/25/22 13:08 WC - Today's Visit Information Type of service Follow-up Visit (Physician/MANAGER CULINARY ) Arrival Mode Ambulatory Transfer Assistance None Patient Identification Verified (Name & Yes ) Patient Requires Transmission-Based No Precautions Height and Weight Body Mass Index (BMI) 41.6 BMI Classification Obese Vital Signs Temperature (97.8 F-99.1 F) 97 F L Temperature Source Temporal Pulse Rate (60-100) 78 Pulse Location Monitor Respiratory Rate (12-18) 18 Respiratory rate source Observation Blood Pressure (90/60-120/80) 164/92 H Blood Pressure Mean (mm Hg) 116 Source Monitor History Since Last Visit- (Skip if this is Patient's initial visit) Have you changed medications since your No last visit? Any new allergies or adverse reactions No Had a fall/change in ADL's that may No increase risk of falls Signs or symptoms of abuse and/or No neglect since last visit Have you been in the hospital since your No last visit? Has dressing in place as prescribed Yes Has compression in place as prescribed Yes Has offloadiing in place as prescribed N/A Experienced any changes in pain level or No management Pain Scale: 0-10 Numeric Is Patient Pain Free? Yes [facility] - Nurse 1 - General Ulcer Measurement Start: 07/25/22 13:07 Freq: Status: Active Protocol: Activity Type Activity Date Activity User E-sign Co-sign Detail Recorded Client Recorded Date Recorded By Document 07/25/22 13:08 [id number] 07/25/22 13:15 DL 07/25/22 13:08 Wound Center Nurse 1 #1 R knee -Current Size (cm) - Length 2.5 -Current Size (cm) - Width 1.8 -Current Size (cm) - Depth 0.2 -Total Square Cm 4.50 -Photo Taken Yes -Exudate Amt Small -Exudate Type Serosanguineous -Wound Margin Distinct, Outline Attached -Granulation Amt Large (67-100%) -Granulation Quality Red -Necrosis Amt None Present (0 %) -Structure Exposed N/A -Texture (Emmy-wound Skin Appearance) Scarring -Moisture (Emmy-wound Skin Appearance) No Abnormality -Color (Emmy-wound Skin Appearance) No Abnormality -Temperature (Emmy-wound Skin No Abnormality Appearance) (Pt Warm) -Tenderness on Palpation (Emmy-wound No Skin Appearance) -Ulcer Cleansing Soap and Water -Foul Odor after Cleansing No -Anesthetic Used 5% Lidocaine Gel [facility] - Nurse 2 - General Ulcer CM Notes Start: 07/25/22 13:07 Freq: Status: Active Protocol: Activity Type Activity Date Activity User E-sign Co-sign Detail Recorded Client Recorded Date Recorded By Document 07/25/22 13:28 CLAUDIA [id number] 07/25/22 13:29 CLAUDIA 07/25/22 13:28 Wound Center Nurse 2 -Time 13:28 -Correct Patient Yes -Correct Side, Site, Position Yes -Correct Procedure Yes -Procedure Performed Yes -Type of Procedure Debridement -Clinical Debridement Subcutaneous -Tissue Removed Subcutaneous -Post Debridement (cm) - Length 2.5 -Post Debridement (cm) - Width 2.2 -Post Debridement (cm) - Depth 0.2 -Total Square (Post) (cm) 5.50 -Area of Debridement (cm) - Length 2.5 -Area of Debridement (cm) - Width 2.2 -Total Square (Area) (cm) 5.50 -Tunneling No -Undermining/Tunneling No -Circular Undermining No -Wound/Ulcer Outcome Not Healed -Ulcer Cleansing Rinsed/ Irrigated with Saline -Foul Odor after Cleansing No -Bioengineered Tissue No -Bleeding Controlled with Pressure -Treatment Response Procedure Tolerated Well -Offloading No -Debridement - Subq, 1st 20sq cm Yes Pain Scale: 0-10 Numeric Is Patient Pain Free? Yes [facility] - Nurse 3 - General Ulcer D/C NN Start: 07/25/22 13:07 Freq: Status: Active Protocol: Activity Type Activity Date Activity User E-sign Co-sign Detail Recorded Client Recorded Date Recorded By Document 07/25/22 13:49 DL [id number] 07/25/22 13:50 DL 07/25/22 13:49 Wound Care Nurse 3 #1 R knee -Ulcer Cleansing Rinsed/ Irrigated with Saline -Foul Odor after Cleansing No -Primary Dressing Applied Aquacel AG 2x2 -Primary Dressing Covered/Secured with Dry Gauze & Roll Gauze, Secured with Tape -Aquacel AG 2x2 1 Right -Tubular Bandage Double Layer -Size of Tubigrip Used Size E -Size E ($) 2 -Stockings Yes Treatment Response Procedure Tolerated Well Pain Scale: 0-10 Numeric Is Patient Pain Free? Yes WC - Visit Discharge Discharge Condition Stable Ambulatory Status Ambulatory Transportation Private Auto Assessment/Plan Assessment/Plan (1) Ulcer of right knee: CODE(S): L97.819 - Non-pressure chronic ulcer of other part of right lower leg with unspecified severity (2) Multiple sclerosis: CODE(S): G35 - Multiple sclerosis (3) Chronic anticoagulation: CODE(S): Z79.01 - residential (current) use of anticoagulants PLAN: Plan Patient was evaluated at the wound center today, subcutaneous debridement was performed as previously documented. Wound culture obtained 04/27/22 which was positive for Staphylococcus haemolyticus and MRSE. Completed Doxycycline. She has an operative debridement on 06/27/[address] Klein. He unroofed the tunnel and she is healing well. Wound care - Moistened Silver alginate covered with adaptic and topped with gauze to the ulcer daily. Do this dressing daily after washing with soap and water. Double Tubigrip up above her knee for compression. She would really benefit from an advanced wound healing product such as Epifix to help expedite her wound healing. She would like to know when she can have her next dose of Ocrevus. I instructed her to discuss this with her MS physician. From my stand point, it could slow her wound healing down and potentially increase her risk for infection. Getting her wound to close as soon as possible is another benefit for using Epifix. Encouraged increase protein intake to help with wound healing. Follow up one week. Call or come in sooner if develop any questions or concern s.
[2022-08-01 13:34] VITALS: BP 150/100; PULSE 103; TEMP 36.6; BMI 41.6
--- NOTE | 2022-08-01 14:33 | PN.PCM_ITS ---
History of Present Illness Date of Service: 08/01/22 Chief Complaint: Non healing right knee wound History of Wound: Patient is a 62-year-old female who presents for follow-up following right knee. She fell on 04/03/2022 and required sutures. After the sutures removed her wound started to dehisce. She was to see her PCP, Dr. Duran, who referred her to the wound center. She also has a significant history of MS and she was just recently started on Ocrevus and received half a dose for her first infusion. She has had increased falls recently and she is now walking with a walker. She states that her clinic for management of her MS. Her other medical history is hypothyroidism, CKD stage III, TIA, PE, and DVT and is on blood thinners. She quit smoking 5 years ago. On 06/27/22 - She had debridement right lower extremity wound skin and subcutaneous tissue 2 x [address] Klein. Wound care - Moistened Aquacel-Ag packed covered with adaptic and topped with gauze daily. Wound culture obtained on 04/27/22 which is positive for Staphylococcus haemolyticus, MRSE. They were treated with Doxycycline. Today she denies fever, chills, nausea, vomiting. She states her appetite is good. Progress of Wound: Right knee ulcer is improving, it is smaller in size, the wound bed is beefy pink in color.? Objective Data Objective Data Vital Signs: Vital Signs Temp Pulse Resp BP 97.9 F 103 H 18 150/100 H 08/01/22 13:34 08/01/22 13:34 07/25/22 13:08 08/01/22 13:34 Weight: 282 lb Body Mass Index (BMI) 41.6 Charges/Coding Procedures Integumentary 111xxx-113xx: 67595 Gretel subq tissue 20 sq cm/< Debridement Note Debridement Note Wound debrided: knee ulcer Laterality: Right Wound Grade/Stage: Stage III Type of Debridement: Excisional debridement Anesthesia Used: 4% Lidocaine Solution and 5% Lidocaine Gel Depth: Down to and including healthy tissue and in the subcutaneous layer Percentage of wound debrided: 100 Instrument Used: 5mm curette Tissue Removed: Devitalized tissue and slough Severity: Fat Layer Exposed Amount of bleeding with debridement: Mild Bleeding Controlled with: Pressure and Compression and gauze Patient tolerated procedure: Patient tolerated procedure well Post-Debridement Measurements and Additional Note: Post-Debridement Measurements/Treatment - Nurse 1 - General Ulcer Assessment Start: 07/25/22 13:07 Freq: Status: Active Protocol: ATA Activity Type Activity Date Activity User E-sign Co-sign Detail Recorded Client Recorded Date Recorded By Document 07/25/22 13:08 DL [id number] 07/25/22 13:15 DL Document 08/01/22 13:34 AK [id number] 08/01/22 13:37 AK 07/25/22 08/01/22 13:08 13:34 WC - Today's Visit Information Type of service Follow-up Visit Follow-up Visit (Physician/CONSULTING BUSINESS DEVELOPER (Physician/CONSULTING BUSINESS DEVELOPER ) ) Arrival Mode Ambulatory Ambulatory Transfer Assistance None Patient Identification Verified (Name & Yes No ) Patient Requires Transmission-Based No No Precautions Height and Weight Body Mass Index (BMI) 41.6 41.6 BMI Classification Obese Obese Vital Signs Temperature (97.8 F-99.1 F) 97 F L 97.9 F Temperature Source Temporal Temporal Pulse Rate (60-100) 78 103 H Pulse Location Monitor Monitor Respiratory Rate (12-18) 18 Respiratory rate source Observation Blood Pressure (90/60-120/80) 164/92 H 150/100 H Blood Pressure Mean (mm Hg) 116 116 Source Monitor Monitor History Since Last Visit- (Skip if this is Patient's initial visit) Have you changed medications since your No No last visit? Any new allergies or adverse reactions No No Had a fall/change in ADL's that may No No increase risk of falls Signs or symptoms of abuse and/or No No neglect since last visit Have you been in the hospital since your No No last visit? Has dressing in place as prescribed Yes Yes Has compression in place as prescribed Yes Yes Has offloadiing in place as prescribed N/A N/A Experienced any changes in pain level or No No management Left Footwear Regular Shoe Right Footwear Regular Shoe Pain Scale: 0-10 Numeric Is Patient Pain Free? Yes Yes - Nurse 1 - General Ulcer Measurement Start: 07/25/22 13:07 Freq: Status: Active Protocol: Activity Type Activity Date Activity User E-sign Co-sign Detail Recorded Client Recorded Date Recorded By Document 07/25/22 13:08 DL [id number] 07/25/22 13:15 DL Document 08/01/22 13:34 AK [id number] 08/01/22 13:37 AK 07/25/22 08/01/22 13:08 13:34 Wound Center Nurse 1 #1 R knee -Combined with other wound No -Current Size (cm) - Length 2.5 2.1 -Current Size (cm) - Width 1.8 1.4 -Current Size (cm) - Depth 0.2 0.2 -Total Square Cm 4.50 2.94 -Date of Last Picture (Recall this 08/01/22 field) -Photo Taken Yes Yes -Tunneling No -Undermining/Tunneling No -Circular Undermining No -Change in Wound Grade/Stage No -Exudate Amt Small Medium -Exudate Type Serosanguineous Serosanguineous -Wound Margin Distinct, Distinct, Outline Outline Attached Attached -Granulation Amt Large (67-100%) Large (67-100%) -Granulation Quality [place],Red -Slough/Fibrin No -Necrosis Amt None Present (0 None Present (0 %) %) -Structure Exposed N/A N/A -Texture (Emmy-wound Skin Appearance) Scarring Assessed, Scarring -Moisture (Emmy-wound Skin Appearance) No Abnormality Assessed -Color (Emmy-wound Skin Appearance) No Abnormality No Abnormality, Assessed -Temperature (Emmy-wound Skin No Abnormality No Abnormality Appearance) (Pt Warm) (Pt Warm) -Tenderness on Palpation (Emmy-wound No No Skin Appearance) -Ulcer Cleansing Soap and Water Rinsed/ Irrigated with Saline -Foul Odor after Cleansing No No -Anesthetic Used 5% Lidocaine 5% Lidocaine Gel Gel WC - Nurse 2 - General Ulcer CM Notes Start: 07/25/22 13:07 Freq: Status: Active Protocol: Activity Type Activity Date Activity User E-sign Co-sign Detail Recorded Client Recorded Date Recorded By Document 07/25/22 13:28 JF [id number] 07/25/22 13:29 Document 08/01/22 13:39 [id number] 08/01/22 13:40 07/25/22 08/01/22 13:28 13:39 Wound Center Nurse 2 #1 R knee -Time 13:28 13:39 -Correct Patient Yes Yes -Correct Side, Site, Position Yes Yes -Correct Procedure Yes Yes -Procedure Performed Yes Yes -Type of Procedure Debridement Debridement -Clinical Debridement Subcutaneous Subcutaneous -Tissue Removed Subcutaneous Subcutaneous -Post Debridement (cm) - Length 2.5 2.4 -Post Debridement (cm) - Width 2.2 2.0 -Post Debridement (cm) - Depth 0.2 0.2 -Total Square (Post) (cm) 5.50 4.80 -Area of Debridement (cm) - Length 2.5 2.4 -Area of Debridement (cm) - Width 2.2 2.0 -Total Square (Area) (cm) 5.50 4.80 -Tunneling No No -Undermining/Tunneling No No -Circular Undermining No No -Wound/Ulcer Outcome Not Healed Not Healed -Ulcer Cleansing Rinsed/ Rinsed/ Irrigated with Irrigated with Saline Saline -Foul Odor after Cleansing No No -Bioengineered Tissue No No -Bleeding Controlled with Pressure Pressure -Treatment Response Procedure Procedure Tolerated Well Tolerated Well -Offloading No No -Debridement - Subq, 1st 20sq cm Yes Yes Pain Scale: 0-10 Numeric Is Patient Pain Free? Yes Yes - Nurse 3 - General Ulcer D/C NN Start: 07/25/22 13:07 Freq: Status: Active Protocol: Activity Type Activity Date Activity User E-sign Co-sign Detail Recorded Client Recorded Date Recorded By Document 07/25/22 13:49 DL [id number] 07/25/22 13:50 DL Document 08/01/22 13:49 MW [id number] 08/01/22 13:50 MW 07/25/22 08/01/22 13:49 13:49 Wound Care Nurse 3 #1 R knee -Ulcer Cleansing Rinsed/ Rinsed/ Irrigated with Irrigated with Saline Saline -Foul Odor after Cleansing No No -Negative Pressure Wound Therapy N/A -Primary Dressing Applied Aquacel AG 2x2 Aquacel AG 2x2, NonAdherent Contact Layer -Primary Dressing Covered/Secured with Dry Gauze & Dry Gauze & Roll Gauze, Roll Gauze, Secured with Secured with Tape Tape -Aquacel AG 2x2 1 1 Right -Lotion applied to leg before No compression wrap -Compression Wrap Calvin Wrap -Tubular Bandage Double Layer -Size of Tubigrip Used Size E -Size E ($) 2 -Stockings Yes Treatment Response Procedure Procedure Tolerated Well Tolerated Well Pain Scale: 0-10 Numeric Is Patient Pain Free? Yes Yes Teaching: Wound Center Dressing Your Wound -Person Taught Patient,Family -Teaching Method Discussion -Response to teaching Verbalize understanding WC - Visit Discharge Discharge Condition Stable Stable Ambulatory Status Ambulatory Ambulatory Transportation Private Auto Private Auto Accompanied by Medication Reconcilliation completed & No provided to patient/care provider Clinical Summary of Care Provided Yes Assessment/Plan Assessment/Plan (1) Ulcer of right knee: CODE(S): L97.819 - Non-pressure chronic ulcer of other part of right lower leg with unspecified severity (2) Multiple sclerosis: CODE(S): G35 - Multiple sclerosis (3) Chronic anticoagulation: CODE(S): Z79.01 - watermelon inspector (current) use of anticoagulants PLAN: Plan Patient was evaluated at the wound center today, subcutaneous debridement was performed as previously documented. Wound culture obtained 04/27/22 which was positive for Staphylococcus haemolyticus and MRSE. Completed Doxycycline. She has an operative debridement on 06/27/[address] Klein. He unroofed the tunnel and she is healing well. Wound care - Moistened Silver alginate covered with adaptic and topped with gauze to the ulcer daily. Do this dressing daily after washing with soap and water. Double Tubigrip up above her knee for compression. She would really benefit from an advanced wound healing product such as Epifix to help expedite her wound healing. We are waiting for approval from her insurance. Encouraged increase protein intake to help with wound healing. Follow up one week. Call or come in sooner if develop any questions or concerns.
[2022-08-08 13:09] VITALS: BP 157/89; PULSE 77; RESP 16; BMI 41.6
--- NOTE | 2022-08-08 15:21 | PN.PCM_ITS ---
History of Present Illness Date of Service: 08/08/22 Chief Complaint: Non healing right knee wound History of Wound: Patient is a 62-year-old female who presents for follow-up following right knee. She fell on 04/03/2022 and required sutures. After the sutures removed her wound started to dehisce. She was to see her PCP, Dr. Duran, who referred her to the wound center. She also has a significant history of MS and she was just recently started on Ocrevus and received half a dose for her first infusion. She has had increased falls recently and she is now walking with a walker. She states that her clinic for management of her MS. Her other medical history is hypothyroidism, CKD stage III, TIA, PE, and DVT and is on blood thinners. She quit smoking 5 years ago. On 06/27/22 - She had debridement right lower extremity wound skin and subcutaneous tissue 2 x [address] Klein. Wound care - Moistened Aquacel-Ag packed covered with adaptic and topped with gauze daily. Wound culture obtained on 04/27/22 which is positive for Staphylococcus haemolyticus, MRSE. They were treated with Doxycycline. Today she denies fever, chills, nausea, vomiting. She states her appetite is good. Progress of Wound: Right knee ulcer is improving, it is smaller in size, the wound bed is beefy pink in color.?Still waiting for approval from her insurance for Epifix. Patient is wanting this wound healed so she can have her next infusion of Okrevus. Objective Data Objective Data Vital Signs: Vital Signs Temp Pulse Resp BP O2 Del Method 97.9 F 77 16 157/89 H Room Air 08/01/22 13:34 08/08/22 13:09 08/08/22 13:09 08/08/22 13:09 08/08/22 13:09 Oxygen Delivery Method Room Air Weight: 282 lb Body Mass Index (BMI) 41.6 Charges/Coding Procedures Integumentary 111xxx-113xx: 69575 Gretel subq tissue 20 sq cm/< Debridement Note Debridement Note Wound debrided: knee ulcer Laterality: Right Wound Grade/Stage: Stage III Type of Debridement: Excisional debridement Anesthesia Used: 4% Lidocaine Solution and 5% Lidocaine Gel Depth: Down to and including healthy tissue and in the subcutaneous layer Percentage of wound debrided: 100 Instrument Used: 5mm curette Tissue Removed: Devitalized tissue and slough Severity: Fat Layer Exposed Amount of bleeding with debridement: Mild Bleeding Controlled with: Pressure and Compression and gauze Patient tolerated procedure: Patient tolerated procedure well Post-Debridement Measurements and Additional Note: Post-Debridement Measurements/Treatment WC - Nurse 1 - General Ulcer Assessment Start: 07/25/22 13:07 Freq: Status: Active Protocol: ALPESH.[facility] Activity Type Activity Date Activity User E-sign Co-sign Detail Recorded Client Recorded Date Recorded By Document 07/25/22 13:08 DL [id number] 07/25/22 13:15 DL Document 08/01/22 13:34 AK [id number] 08/01/22 13:37 AK Document 08/08/22 13:09 [facility] [id number] 08/08/22 13:17 BMF 07/25/22 08/01/22 08/08/22 13:08 13:34 13:09 - Today's Visit Information Type of service Follow-up Visit Follow-up Visit Follow-up Visit (Physician/ROTARY SCREEN PRINTING MACHINE OPERATOR (Physician/ROTARY SCREEN PRINTING MACHINE OPERATOR (Physician/ROTARY SCREEN PRINTING MACHINE OPERATOR ) ) ) Arrival Mode Ambulatory Ambulatory Ambulatory Transfer Assistance None None Patient Identification Verified (Name & Yes No Yes ) Patient Requires Transmission-Based No No No Precautions Height and Weight Body Mass Index (BMI) 41.6 41.6 41.6 BMI Classification Obese Obese Obese Vital Signs Temperature (97.8 F-99.1 F) 97 F L 97.9 F Temperature Source Temporal Temporal Pulse Rate (60-100) 78 103 H 77 Pulse Location Monitor Monitor Monitor Respiratory Rate (12-18) 18 16 Respiratory rate source Observation Observation Oxygen Delivery Method Room Air Blood Pressure (90/60-120/80) 164/92 H 150/100 H 157/89 H Blood Pressure Mean (mm Hg) 116 116 111 Source Monitor Monitor Monitor Position Sitting Blood Pressure Location Right Arm History Since Last Visit- (Skip if this is Patient's initial visit) Have you changed medications since your No No No last visit? Any new allergies or adverse reactions No No No Had a fall/change in ADL's that may No No No increase risk of falls Signs or symptoms of abuse and/or No No No neglect since last visit Have you been in the hospital since your No No No last visit? Has dressing in place as prescribed Yes Yes Yes Has compression in place as prescribed Yes Yes N/A Has offloadiing in place as prescribed N/A N/A N/A Experienced any changes in pain level or No No No management Left Footwear Regular Shoe Regular Shoe Right Footwear Regular Shoe Regular Shoe Pain Scale: 0-10 Numeric Is Patient Pain Free? Yes Yes Yes WC - Nurse 1 - General Ulcer Measurement Start: 07/25/22 13:07 Freq: Status: Active Protocol: Activity Type Activity Date Activity User E-sign Co-sign Detail Recorded Client Recorded Date Recorded By Document 07/25/22 13:08 DL [id number] 07/25/22 13:15 DL Document 08/01/22 13:34 AK [id number] 08/01/22 13:37 AK Document 08/08/22 13:09 [facility] [id number] 08/08/22 13:17 BMF 07/25/22 08/01/22 08/08/22 13:08 13:34 13:09 Wound Center Nurse 1 #1 R knee -Combined with other wound No No -Current Size (cm) - Length 2.5 2.1 2.8 -Current Size (cm) - Width 1.8 1.4 1.4 -Current Size (cm) - Depth 0.2 0.2 0.3 -Total Square Cm 4.50 2.94 3.92 -Date of Last Picture (Recall this 08/01/22 08/08/22 field) -Photo Taken Yes Yes Yes -Epithelialization Small 1-33% -Tunneling No No -Undermining/Tunneling No No -Circular Undermining No No -Change in Wound Grade/Stage No -Exudate Amt Small Medium Medium -Exudate Type Serosanguineous Serosanguineous Serosanguineous -Wound Margin Distinct, Distinct, Thickened Outline Outline Attached Attached -Granulation Amt Large (67-100%) Large (67-100%) Large (67-100%) -Granulation Quality [place] -Slough/Fibrin No No -Necrosis Amt None Present (0 None Present (0 None Present (0 %) %) %) -Structure Exposed N/A N/A -Texture (Emmy-wound Skin Appearance) Scarring Assessed, Assessed, Scarring Scarring -Moisture (Emmy-wound Skin Appearance) No Abnormality Assessed Assessed -Color (Emmy-wound Skin Appearance) No Abnormality No Abnormality, Assessed Assessed -Temperature (Emmy-wound Skin No Abnormality No Abnormality No Abnormality Appearance) (Pt Warm) (Pt Warm) (Pt Warm) -Tenderness on Palpation (Emmy-wound No No No Skin Appearance) -Ulcer Cleansing Soap and Water Rinsed/ Rinsed/ Irrigated with Irrigated with Saline Saline -Foul Odor after Cleansing No No No -Anesthetic Used 5% Lidocaine 5% Lidocaine 4% Lidocaine Gel Gel Solution WC - Nurse 2 - General Ulcer CM Notes Start: 07/25/22 13:07 Freq: Status: Active Protocol: Activity Type Activity Date Activity User E-sign Co-sign Detail Recorded Client Recorded Date Recorded By Document 07/25/22 13:28 [id number] 07/25/22 13:29 Document 08/01/22 13:39 [id number] 08/01/22 13:40 Document 08/08/22 13:31 [id number] 08/08/22 13:33 07/25/22 08/01/22 08/08/22 13:28 13:39 13:31 Wound Center Nurse 2 #1 R knee -Time 13:28 13:39 13:31 -Correct Patient Yes Yes Yes -Correct Side, Site, Position Yes Yes Yes -Correct Procedure Yes Yes Yes -Procedure Performed Yes Yes Yes -Type of Procedure Debridement Debridement Debridement -Clinical Debridement Subcutaneous Subcutaneous Subcutaneous -Tissue Removed Subcutaneous Subcutaneous Subcutaneous -Post Debridement (cm) - Length 2.5 2.4 2.4 -Post Debridement (cm) - Width 2.2 2.0 1.4 -Post Debridement (cm) - Depth 0.2 0.2 0.2 -Total Square (Post) (cm) 5.50 4.80 3.36 -Area of Debridement (cm) - Length 2.5 2.4 2.4 -Area of Debridement (cm) - Width 2.2 2.0 1.4 -Total Square (Area) (cm) 5.50 4.80 3.36 -Tunneling No No No -Undermining/Tunneling No No No -Circular Undermining No No No -Wound/Ulcer Outcome Not Healed Not Healed Not Healed -Ulcer Cleansing Rinsed/ Rinsed/ Rinsed/ Irrigated with Irrigated with Irrigated with Saline Saline Saline -Foul Odor after Cleansing No No No -Bioengineered Tissue No No No -Bleeding Controlled with Pressure Pressure Pressure -Treatment Response Procedure Procedure Procedure Tolerated Well Tolerated Well Tolerated Well -Offloading No No No -Debridement - Subq, 1st 20sq cm Yes Yes Yes Pain Scale: 0-10 Numeric Is Patient Pain Free? Yes Yes Yes WC - Nurse 3 - General Ulcer D/C NN Start: 07/25/22 13:07 Freq: Status: Active Protocol: Activity Type Activity Date Activity User E-sign Co-sign Detail Recorded Client Recorded Date Recorded By Document 07/25/22 13:49 DL [id number] 07/25/22 13:50 DL Document 08/01/22 13:49 MW [id number] 08/01/22 13:50 MW Document 08/08/22 13:45 BM [id number] 08/08/22 13:46 BMF 07/25/22 08/01/22 08/08/22 13:49 13:49 13:45 Wound Care Nurse 3 #1 R knee -Ulcer Cleansing Rinsed/ Rinsed/ Rinsed/ Irrigated with Irrigated with Irrigated with Saline Saline Saline -Foul Odor after Cleansing No No No -Negative Pressure Wound Therapy N/A -Primary Dressing Applied Aquacel AG 2x2 Aquacel AG 2x2, Aquacel AG 2x2 NonAdherent Contact Layer -Primary Dressing Covered/Secured with Dry Gauze & Dry Gauze & Dry Gauze & Roll Gauze, Roll Gauze, Roll Gauze, Secured with Secured with Secured with Tape Tape Tape -Aquacel AG 2x2 1 1 1 Right -Lotion applied to leg before No compression wrap -Compression Wrap Calvin Wrap Calvin Wrap -Tubular Bandage Double Layer -Size of Tubigrip Used Size E -Size E ($) 2 -Stockings Yes Treatment Response Procedure Procedure Procedure Tolerated Well Tolerated Well Tolerated Well Pain Scale: 0-10 Numeric Is Patient Pain Free? Yes Yes Yes Teaching: Wound Center Dressing Your Wound -Person Taught Patient,Family -Teaching Method Discussion -Response to teaching Verbalize understanding WC - Visit Discharge Discharge Condition Stable Stable Stable Ambulatory Status Ambulatory Ambulatory Ambulatory Transportation Private Auto Private Auto Private Auto Accompanied by husb Medication Reconcilliation completed & No provided to patient/care provider Clinical Summary of Care Provided Yes Assessment/Plan Assessment/Plan (1) Ulcer of right knee: CODE(S): L97.819 - Non-pressure chronic ulcer of other part of right lower leg with unspecified severity (2) Multiple sclerosis: CODE(S): G35 - Multiple sclerosis (3) Chronic anticoagulation: CODE(S): Z79.01 - alf (current) use of anticoagulants PLAN: Plan Patient was evaluated at the wound center today. Wound culture obtained 04/27/22 which was positive for Staphylococcus haemolyticus and MRSE. Completed Doxycycline. She has an operative debridement on 06/27/[address] Klein. He unroofed the tunnel and she is healing well. Wound care - Moistened Silver alginate covered with adaptic and topped with gauze to the ulcer daily. Do this dressing daily after washing with soap and water. Double Tubigrip up above her knee for compression. She would really benefit from an advanced wound healing product such as Epifix to help expedite her wound healing. We are waiting for approval from her insurance. Encouraged increase protein intake to help with wound healing. Follow up one week. Call or come in sooner if develop any questions or concerns.
[2022-08-15 13:11] VITALS: BP 176/75; PULSE 76; RESP 18; TEMP 36.4; BMI 41.6
--- NOTE | 2022-08-15 14:33 | PCM.WC.PN ---
History of Present Illness Date of Service: 08/15/22 Chief Complaint: Non healing right knee wound History of Wound: Patient is a 62-year-old female who presents for follow-up following right knee. She fell on 04/03/2022 and required sutures. After the sutures removed her wound started to dehisce. She was to see her PCP, Dr. Duran, who referred her to the wound center. She also has a significant history of MS and she was just recently started on Ocrevus and received half a dose for her first infusion. She has had increased falls recently and she is now walking with a walker. She states that her clinic for management of her MS. Her other medical history is hypothyroidism, CKD stage III, TIA, PE, and DVT and is on blood thinners. She quit smoking 5 years ago. On 06/27/22 - She had debridement right lower extremity wound skin and subcutaneous tissue 2 x [address] Klein. Wound care - Moistened Aquacel-Ag packed covered with adaptic and topped with gauze daily. Wound culture obtained on 04/27/22 which is positive for Staphylococcus haemolyticus, MRSE. They were treated with Doxycycline. Today she denies fever, chills, nausea, vomiting. She states her appetite is good. Progress of Wound: Right knee ulcer is improving, it is smaller in size, the wound bed is beefy pink in color.?Still waiting for approval from her insurance for Epifix. Patient is wanting this wound healed so she can have her next infusion of Okrevus. Objective Data Objective Data Vital Signs: Vital Signs Temp Pulse Resp BP O2 Del Method 97.6 F L 76 18 176/75 H Room Air 08/15/22 13:11 08/15/22 13:11 08/15/22 13:11 08/15/22 13:11 08/08/22 13:09 Oxygen Delivery Method Room Air Weight: 282 lb Body Mass Index (BMI) 41.6 Charges/Coding Procedures Integumentary 111xxx-113xx: 37145 Gretel subq tissue 20 sq cm/< Debridement Note Debridement Note Wound debrided: knee ulcer Laterality: Right Wound Grade/Stage: Stage III Type of Debridement: Excisional debridement Anesthesia Used: 4% Lidocaine Solution and 5% Lidocaine Gel Depth: Down to and including healthy tissue and in the subcutaneous layer Percentage of wound debrided: 100 Instrument Used: 3mm curette Tissue Removed: Devitalized tissue and slough Severity: Fat Layer Exposed Amount of bleeding with debridement: Mild Bleeding Controlled with: Pressure and Compression and gauze Patient tolerated procedure: Patient tolerated procedure well Post-Debridement Measurements and Additional Note: Post-Debridement Measurements/Treatment WC - Nurse 1 - General Ulcer Assessment Start: 07/25/22 13:07 Freq: Status: Active Protocol: ATA Activity Type Activity Date Activity User E-sign Co-sign Detail Recorded Client Recorded Date Recorded By Document 07/25/22 13:08 DL [id number] 07/25/22 13:15 DL Document 08/01/22 13:34 AK [id number] 08/01/22 13:37 AK Document 08/08/22 13:09 [facility] [id number] 08/08/22 13:17 BMF Document 08/15/22 13:11 DL [id number] 08/15/22 13:13 DL 07/25/22 08/01/22 08/08/22 13:08 13:34 13:09 - Today's Visit Information Type of service Follow-up Visit Follow-up Visit Follow-up Visit (Physician/MECHATRONICS TECHNICIAN (Physician/MECHATRONICS TECHNICIAN (Physician/MECHATRONICS TECHNICIAN ) ) ) Arrival Mode Ambulatory Ambulatory Ambulatory Transfer Assistance None None Patient Identification Verified (Name & Yes No Yes ) Patient Requires Transmission-Based No No No Precautions Blood Sugar Height and Weight Body Mass Index (BMI) 41.6 41.6 41.6 BMI Classification Obese Obese Obese Vital Signs Temperature (97.8 F-99.1 F) 97 F L 97.9 F Temperature Source Temporal Temporal Pulse Rate (60-100) 78 103 H 77 Pulse Location Monitor Monitor Monitor Respiratory Rate (12-18) 18 16 Respiratory rate source Observation Observation Oxygen Delivery Method Room Air Blood Pressure (90/60-120/80) 164/92 H 150/100 H 157/89 H Blood Pressure Mean (mm Hg) 116 116 111 Source Monitor Monitor Monitor Position Sitting Blood Pressure Location Right Arm History Since Last Visit- (Skip if this is Patient's initial visit) Have you changed medications since your No No No last visit? Any new allergies or adverse reactions No No No Had a fall/change in ADL's that may No No No increase risk of falls Signs or symptoms of abuse and/or No No No neglect since last visit Have you been in the hospital since your No No No last visit? Has dressing in place as prescribed Yes Yes Yes Has compression in place as prescribed Yes Yes N/A Has offloadiing in place as prescribed N/A N/A N/A Experienced any changes in pain level or No No No management Left Footwear Regular Shoe Regular Shoe Right Footwear Regular Shoe Regular Shoe Pain Scale: 0-10 Numeric Is Patient Pain Free? Yes Yes Yes 08/15/22 13:11 WC - Today's Visit Information Type of service Follow-up Visit (Physician/MECHATRONICS TECHNICIAN ) Arrival Mode Ambulatory Transfer Assistance None Patient Identification Verified (Name & Yes ) Patient Requires Transmission-Based No Precautions Blood Sugar Stated by Patient Height and Weight Body Mass Index (BMI) 41.6 BMI Classification Obese Vital Signs Temperature (97.8 F-99.1 F) 97.6 F L Temperature Source Temporal Pulse Rate (60-100) 76 Pulse Location Monitor Respiratory Rate (12-18) 18 Respiratory rate source Observation Oxygen Delivery Method Blood Pressure (90/60-120/80) 176/75 H Blood Pressure Mean (mm Hg) 108 Source Monitor Position Blood Pressure Location History Since Last Visit- (Skip if this is Patient's initial visit) Have you changed medications since your No last visit? Any new allergies or adverse reactions No Had a fall/change in ADL's that may No increase risk of falls Signs or symptoms of abuse and/or No neglect since last visit Have you been in the hospital since your No last visit? Has dressing in place as prescribed Yes Has compression in place as prescribed N/A Has offloadiing in place as prescribed N/A Experienced any changes in pain level or No management Left Footwear Right Footwear Pain Scale: 0-10 Numeric Is Patient Pain Free? Yes - Nurse 1 - General Ulcer Measurement Start: 07/25/22 13:07 Freq: Status: Active Protocol: Activity Type Activity Date Activity User E-sign Co-sign Detail Recorded Client Recorded Date Recorded By Document 07/25/22 13:08 DL [id number] 07/25/22 13:15 DL Document 08/01/22 13:34 AK [id number] 08/01/22 13:37 AK Document 08/08/22 13:09 BMF [id number] 08/08/22 13:17 BMF Document 08/15/22 13:11 DL [id number] 08/15/22 13:13 DL 07/25/22 08/01/22 08/08/22 13:08 13:34 13:09 Wound Center Nurse 1 #1 R knee -Combined with other wound No No -Current Size (cm) - Length 2.5 2.1 2.8 -Current Size (cm) - Width 1.8 1.4 1.4 -Current Size (cm) - Depth 0.2 0.2 0.3 -Total Square Cm 4.50 2.94 3.92 -Date of Last Picture (Recall this 08/01/22 08/08/22 field) -Photo Taken Yes Yes Yes -Epithelialization Small 1-33% -Tunneling No No -Undermining/Tunneling No No -Circular Undermining No No -Change in Wound Grade/Stage No -Exudate Amt Small Medium Medium -Exudate Type Serosanguineous Serosanguineous Serosanguineous -Wound Margin Distinct, Distinct, Thickened Outline Outline Attached Attached -Granulation Amt Large (67-100%) Large (67-100%) Large (67-100%) -Granulation Quality Red [place],Red [place] -Slough/Fibrin No No -Necrosis Amt None Present (0 None Present (0 None Present (0 %) %) %) -Structure Exposed N/A N/A -Texture (Emmy-wound Skin Appearance) Scarring Assessed, Assessed, Scarring Scarring -Moisture (Emmy-wound Skin Appearance) No Abnormality Assessed Assessed -Color (Emmy-wound Skin Appearance) No Abnormality No Abnormality, Assessed Assessed -Temperature (Emmy-wound Skin No Abnormality No Abnormality No Abnormality Appearance) (Pt Warm) (Pt Warm) (Pt Warm) -Tenderness on Palpation (Emmy-wound No No No Skin Appearance) -Ulcer Cleansing Soap and Water Rinsed/ Rinsed/ Irrigated with Irrigated with Saline Saline -Foul Odor after Cleansing No No No -Anesthetic Used 5% Lidocaine 5% Lidocaine 4% Lidocaine Gel Gel Solution 08/15/22 13:11 Wound Center Nurse 1 #1 R knee -Combined with other wound -Current Size (cm) - Length 1.5 -Current Size (cm) - Width 1 -Current Size (cm) - Depth 0.3 -Total Square Cm 1.5 -Date of Last Picture (Recall this field) -Photo Taken Yes -Epithelialization -Tunneling -Undermining/Tunneling -Circular Undermining -Change in Wound Grade/Stage -Exudate Amt Medium -Exudate Type Serosanguineous -Wound Margin Distinct, Outline Attached -Granulation Amt Large (67-100%) -Granulation Quality [place] -Slough/Fibrin -Necrosis Amt None Present (0 %) -Structure Exposed N/A -Texture (Emmy-wound Skin Appearance) Scarring -Moisture (Emmy-wound Skin Appearance) No Abnormality -Color (Emmy-wound Skin Appearance) No Abnormality -Temperature (Emmy-wound Skin No Abnormality Appearance) (Pt Warm) -Tenderness on Palpation (Emmy-wound Skin Appearance) -Ulcer Cleansing Rinsed/ Irrigated with Saline -Foul Odor after Cleansing No -Anesthetic Used 5% Lidocaine Gel WC - Nurse 2 - General Ulcer CM Notes Start: 07/25/22 13:07 Freq: Status: Active Protocol: Activity Type Activity Date Activity User E-sign Co-sign Detail Recorded Client Recorded Date Recorded By Document 07/25/22 13:28 [id number] 07/25/22 13:29 Document 08/01/22 13:39 [id number] 08/01/22 13:40 Document 08/08/22 13:31 [id number] 08/08/22 13:33 Document 08/15/22 13:34 [id number] 08/15/22 13:35 07/25/22 08/01/22 08/08/22 13:28 13:39 13:31 Wound Center Nurse 2 #1 R knee -Time 13:28 13:39 13:31 -Correct Patient Yes Yes Yes -Correct Side, Site, Position Yes Yes Yes -Correct Procedure Yes Yes Yes -Procedure Performed Yes Yes Yes -Type of Procedure Debridement Debridement Debridement -Clinical Debridement Subcutaneous Subcutaneous Subcutaneous -Tissue Removed Subcutaneous Subcutaneous Subcutaneous -Post Debridement (cm) - Length 2.5 2.4 2.4 -Post Debridement (cm) - Width 2.2 2.0 1.4 -Post Debridement (cm) - Depth 0.2 0.2 0.2 -Total Square (Post) (cm) 5.50 4.80 3.36 -Area of Debridement (cm) - Length 2.5 2.4 2.4 -Area of Debridement (cm) - Width 2.2 2.0 1.4 -Total Square (Area) (cm) 5.50 4.80 3.36 -Tunneling No No No -Undermining/Tunneling No No No -Circular Undermining No No No -Wound/Ulcer Outcome Not Healed Not Healed Not Healed -Ulcer Cleansing Rinsed/ Rinsed/ Rinsed/ Irrigated with Irrigated with Irrigated with Saline Saline Saline -Foul Odor after Cleansing No No No -Bioengineered Tissue No No No -Bleeding Controlled with Pressure Pressure Pressure -Treatment Response Procedure Procedure Procedure Tolerated Well Tolerated Well Tolerated Well -Offloading No No No -Debridement - Subq, 1st 20sq cm Yes Yes Yes Pain Scale: 0-10 Numeric Is Patient Pain Free? Yes Yes Yes 08/15/22 13:34 Wound Center Nurse 2 #1 R knee -Time 13:35 -Correct Patient Yes -Correct Side, Site, Position Yes -Correct Procedure Yes -Procedure Performed Yes -Type of Procedure Debridement -Clinical Debridement Subcutaneous -Tissue Removed Subcutaneous -Post Debridement (cm) - Length 2.0 -Post Debridement (cm) - Width 1.3 -Post Debridement (cm) - Depth 0.2 -Total Square (Post) (cm) 2.60 -Area of Debridement (cm) - Length 2.0 -Area of Debridement (cm) - Width 1.3 -Total Square (Area) (cm) 2.60 -Tunneling No -Undermining/Tunneling No -Circular Undermining No -Wound/Ulcer Outcome Not Healed -Ulcer Cleansing Rinsed/ Irrigated with Saline -Foul Odor after Cleansing No -Bioengineered Tissue No -Bleeding Controlled with Pressure -Treatment Response Procedure Tolerated Well -Offloading No -Debridement - Subq, 1st 20sq cm Yes Pain Scale: 0-10 Numeric Is Patient Pain Free? Yes WC - Nurse 3 - General Ulcer D/C NN Start: 07/25/22 13:07 Freq: Status: Active Protocol: Activity Type Activity Date Activity User E-sign Co-sign Detail Recorded Client Recorded Date Recorded By Document 07/25/22 13:49 DL [id number] 07/25/22 13:50 DL Document 08/01/22 13:49 MW [id number] 08/01/22 13:50 MW Document 08/08/22 13:45 [facility] [id number] 08/08/22 13:46 [facility] Document 08/15/22 13:55 [facility] [id number] 08/15/22 13:56 [facility] 07/25/22 08/01/22 08/08/22 13:49 13:49 13:45 Wound Care Nurse 3 #1 R knee -Ulcer Cleansing Rinsed/ Rinsed/ Rinsed/ Irrigated with Irrigated with Irrigated with Saline Saline Saline -Foul Odor after Cleansing No No No -Negative Pressure Wound Therapy N/A -Primary Dressing Applied Aquacel AG 2x2 Aquacel AG 2x2, Aquacel AG 2x2 NonAdherent Contact Layer -Primary Dressing Covered/Secured with Dry Gauze & Dry Gauze & Dry Gauze & Roll Gauze, Roll Gauze, Roll Gauze, Secured with Secured with Secured with Tape Tape Tape -Aquacel AG 2x2 1 1 1 Right -Lotion applied to leg before No compression wrap -Compression Wrap Calvin Wrap Calvin Wrap -Tubular Bandage Double Layer -Size of Tubigrip Used Size E -Size E ($) 2 -Size F ($) -Stockings Yes Treatment Response Procedure Procedure Procedure Tolerated Well Tolerated Well Tolerated Well Pain Scale: 0-10 Numeric Is Patient Pain Free? Yes Yes Yes Teaching: Wound Center Dressing Your Wound -Person Taught Patient,Family -Teaching Method Discussion -Response to teaching Verbalize understanding WC - Visit Discharge Discharge Condition Stable Stable Stable Ambulatory Status Ambulatory Ambulatory Ambulatory Transportation Private Auto Private Auto Private Auto Accompanied by husb Medication Reconcilliation completed & No provided to patient/care provider Clinical Summary of Care Provided Yes 08/15/22 13:55 Wound Care Nurse 3 #1 R knee -Ulcer Cleansing Rinsed/ Irrigated with Saline -Foul Odor after Cleansing No -Negative Pressure Wound Therapy -Primary Dressing Applied Aquacel AG 2x2 -Primary Dressing Covered/Secured with Dry Gauze & Roll Gauze, Secured with Tape -Aquacel AG 2x2 1 Right -Lotion applied to leg before compression wrap -Compression Wrap -Tubular Bandage Double Layer -Size of Tubigrip Used Size F -Size E ($) -Size F ($) 1 -Stockings Treatment Response Procedure Tolerated Well Pain Scale: 0-10 Numeric Is Patient Pain Free? Yes Teaching: Wound Center Dressing Your Wound -Person Taught -Teaching Method -Response to teaching WC - Visit Discharge Discharge Condition Stable Ambulatory Status Ambulatory Transportation Private Auto Accompanied by nolan Medication Reconcilliation completed & provided to patient/care provider Clinical Summary of Care Provided Assessment/Plan Assessment/Plan (1) Ulcer of right knee: CODE(S): L97.819 - Non-pressure chronic ulcer of other part of right lower leg with unspecified severity (2) Multiple sclerosis: CODE(S): G35 - Multiple sclerosis (3) Chronic anticoagulation: CODE(S): Z79.01 - intermediate card tender (current) use of anticoagulants PLAN: Plan Patient was evaluated at the wound center today. Wound culture obtained 04/27/22 which was positive for Staphylococcus haemolyticus and MRSE. Completed Doxycycline. She has an operative debridement on 06/27/[address] Klein. He unroofed the tunnel and she is healing well. Wound care - Moistened Silver alginate covered with adaptic and topped with gauze to the ulcer daily. Do this dressing daily after washing with soap and water. Double Tubigrip up above her knee for compression. She would really benefit from an advanced wound healing product such as Epifix to help expedite her wound healing. We are waiting for approval from her insurance. Encouraged increase protein intake to help with wound healing. Follow up one week. Call or come in sooner if develop any questions or concerns.
[2022-08-22 14:01] VITALS: BP 157/88; PULSE 64; RESP 20; TEMP 35.7; BMI 41.6
--- NOTE | 2022-08-22 15:24 | PCM.WC.PN ---
History of Present Illness Date of Service: 08/22/22 Chief Complaint: Non healing right knee wound History of Wound: Patient is a 62-year-old female who presents for follow-up following right knee. She fell on 04/03/2022 and required sutures. After the sutures removed her wound started to dehisce. She was to see her PCP, Dr. Duran, who referred her to the wound center. She also has a significant history of MS and she was just recently started on Ocrevus and received half a dose for her first infusion. She has had increased falls recently and she is now walking with a walker. She states that her clinic for management of her MS. Her other medical history is hypothyroidism, CKD stage III, TIA, PE, and DVT and is on blood thinners. She quit smoking 5 years ago. On 06/27/22 - She had debridement right lower extremity wound skin and subcutaneous tissue 2 x [address] Klein. Wound care - She has been approved for Epifix. Wound culture obtained on 04/27/22 which is positive for Staphylococcus haemolyticus, MRSE. They were treated with Doxycycline. Today she denies fever, chills, nausea, vomiting. She states her appetite is good. Progress of Wound: Right knee ulcer is improving, it is smaller in size, the wound bed is beefy pink in color.? Objective Data Objective Data Vital Signs: Vital Signs Temp Pulse Resp BP O2 Del Method 96.2 F L 64 20 H 157/88 H Room Air 08/22/22 14:01 08/22/22 14:01 08/22/22 14:01 08/22/22 14:01 08/08/22 13:09 Oxygen Delivery Method Room Air Weight: 282 lb Body Mass Index (BMI) 41.6 Charges/Coding Procedures Integumentary 150xxx-152xx: [id number] Skin sub graft trnk/arm/leg Debridement Note Debridement Note Wound debrided: knee ulcer Laterality: Right Wound Grade/Stage: Stage III Type of Debridement: Excisional debridement Anesthesia Used: 4% Lidocaine Solution and 5% Lidocaine Gel Depth: Down to and including healthy tissue and in the subcutaneous layer Percentage of wound debrided: 100 Instrument Used: 3mm curette Tissue Removed: Devitalized tissue and slough Severity: Fat Layer Exposed Amount of bleeding with debridement: Mild Bleeding Controlled with: Pressure and Compression and gauze Patient tolerated procedure: Patient tolerated procedure well Post-Debridement Measurements and Additional Note: Post-Debridement Measurements/Treatment WC - Nurse 1 - General Ulcer Assessment Start: 07/25/22 13:07 Freq: Status: Active Protocol: ATA Activity Type Activity Date Activity User E-sign Co-sign Detail Recorded Client Recorded Date Recorded By Document 07/25/22 13:08 DL [id number] 07/25/22 13:15 DL Document 08/01/22 13:34 AK [id number] 08/01/22 13:37 AK Document 08/08/22 13:09 BMF [id number] 08/08/22 13:17 BMF Document 08/15/22 13:11 DL [id number] 08/15/22 13:13 DL Document 08/22/22 14:01 DL [id number] 08/22/22 14:05 DL 07/25/22 08/01/22 08/08/22 13:08 13:34 13:09 - Today's Visit Information Type of service Follow-up Visit Follow-up Visit Follow-up Visit (Physician/DIVERSITY INTERN (Physician/DIVERSITY INTERN (Physician/DIVERSITY INTERN ) ) ) Arrival Mode Ambulatory Ambulatory Ambulatory Transfer Assistance None None Patient Identification Verified (Name & Yes No Yes ) Patient Requires Transmission-Based No No No Precautions Blood Sugar Height and Weight Body Mass Index (BMI) 41.6 41.6 41.6 BMI Classification Obese Obese Obese Vital Signs Temperature (97.8 F-99.1 F) 97 F L 97.9 F Temperature Source Temporal Temporal Pulse Rate (60-100) 78 103 H 77 Pulse Location Monitor Monitor Monitor Respiratory Rate (12-18) 18 16 Respiratory rate source Observation Observation Oxygen Delivery Method Room Air Blood Pressure (90/60-120/80) 164/92 H 150/100 H 157/89 H Blood Pressure Mean (mm Hg) 116 116 111 Source Monitor Monitor Monitor Position Sitting Blood Pressure Location Right Arm History Since Last Visit- (Skip if this is Patient's initial visit) Have you changed medications since your No No No last visit? Any new allergies or adverse reactions No No No Had a fall/change in ADL's that may No No No increase risk of falls Signs or symptoms of abuse and/or No No No neglect since last visit Have you been in the hospital since your No No No last visit? Has dressing in place as prescribed Yes Yes Yes Has compression in place as prescribed Yes Yes N/A Has offloadiing in place as prescribed N/A N/A N/A Experienced any changes in pain level or No No No management Left Footwear Regular Shoe Regular Shoe Right Footwear Regular Shoe Regular Shoe Pain Scale: 0-10 Numeric Is Patient Pain Free? Yes Yes Yes 08/15/22 08/22/22 13:11 14:01 WC - Today's Visit Information Type of service Follow-up Visit Follow-up Visit (Physician/DIVERSITY INTERN (Physician/DIVERSITY INTERN ) ) Arrival Mode Ambulatory Ambulatory Transfer Assistance None None Patient Identification Verified (Name & Yes Yes ) Patient Requires Transmission-Based No No Precautions Blood Sugar Stated by Patient Height and Weight Body Mass Index (BMI) 41.6 41.6 BMI Classification Obese Obese Vital Signs Temperature (97.8 F-99.1 F) 97.6 F L 96.2 F L Temperature Source Temporal Temporal Pulse Rate (60-100) 76 64 Pulse Location Monitor Monitor Respiratory Rate (12-18) 18 20 H Respiratory rate source Observation Observation Oxygen Delivery Method Blood Pressure (90/60-120/80) 176/75 H 157/88 H Blood Pressure Mean (mm Hg) 108 111 Source Monitor Monitor Position Blood Pressure Location History Since Last Visit- (Skip if this is Patient's initial visit) Have you changed medications since your No No last visit? Any new allergies or adverse reactions No No Had a fall/change in ADL's that may No No increase risk of falls Signs or symptoms of abuse and/or No No neglect since last visit Have you been in the hospital since your No No last visit? Has dressing in place as prescribed Yes Yes Has compression in place as prescribed N/A Yes Has offloadiing in place as prescribed N/A N/A Experienced any changes in pain level or No No management Left Footwear Right Footwear Pain Scale: 0-10 Numeric Is Patient Pain Free? Yes Yes - Nurse 1 - General Ulcer Measurement Start: 07/25/22 13:07 Freq: Status: Active Protocol: Activity Type Activity Date Activity User E-sign Co-sign Detail Recorded Client Recorded Date Recorded By Document 07/25/22 13:08 DL [id number] 07/25/22 13:15 DL Document 08/01/22 13:34 MT [id number] 08/01/22 13:37 AK Document 08/08/22 13:09 [facility] [id number] 08/08/22 13:17 BM Document 08/15/22 13:11 DL [id number] 08/15/22 13:13 DL Document 08/22/22 14:01 DL [id number] 08/22/22 14:05 DL 07/25/22 08/01/22 08/08/22 13:08 13:34 13:09 Wound Center Nurse 1 #1 R knee -Combined with other wound No No -Current Size (cm) - Length 2.5 2.1 2.8 -Current Size (cm) - Width 1.8 1.4 1.4 -Current Size (cm) - Depth 0.2 0.2 0.3 -Total Square Cm 4.50 2.94 3.92 -Date of Last Picture (Recall this 08/01/22 08/08/22 field) -Photo Taken Yes Yes Yes -Epithelialization Small 1-33% -Tunneling No No -Undermining/Tunneling No No -Circular Undermining No No -Change in Wound Grade/Stage No -Exudate Amt Small Medium Medium -Exudate Type Serosanguineous Serosanguineous Serosanguineous -Wound Margin Distinct, Distinct, Thickened Outline Outline Attached Attached -Granulation Amt Large (67-100%) Large (67-100%) Large (67-100%) -Granulation Quality Red Lometa,Red Lometa -Slough/Fibrin No No -Necrosis Amt None Present (0 None Present (0 None Present (0 %) %) %) -Structure Exposed N/A N/A -Texture (Emmy-wound Skin Appearance) Scarring Assessed, Assessed, Scarring Scarring -Moisture (Emmy-wound Skin Appearance) No Abnormality Assessed Assessed -Color (Emmy-wound Skin Appearance) No Abnormality No Abnormality, Assessed Assessed -Temperature (Emmy-wound Skin No Abnormality No Abnormality No Abnormality Appearance) (Pt Warm) (Pt Warm) (Pt Warm) -Tenderness on Palpation (Emmy-wound No No No Skin Appearance) -Ulcer Cleansing Soap and Water Rinsed/ Rinsed/ Irrigated with Irrigated with Saline Saline -Foul Odor after Cleansing No No No -Anesthetic Used 5% Lidocaine 5% Lidocaine 4% Lidocaine Gel Gel Solution 11/22/22 11/29/22 13:11 14:01 Wound Center Nurse 1 #1 R knee -Combined with other wound -Current Size (cm) - Length 1.5 1.4 -Current Size (cm) - Width 1 1 -Current Size (cm) - Depth 0.3 0.2 -Total Square Cm 1.5 1.4 -Date of Last Picture (Recall this field) -Photo Taken Yes Yes -Epithelialization -Tunneling -Undermining/Tunneling -Circular Undermining -Change in Wound Grade/Stage -Exudate Amt Medium Small -Exudate Type Serosanguineous Serosanguineous -Wound Margin Distinct, Thickened & Outline Rolled Under Attached -Granulation Amt Large (67-100%) Large (67-100%) -Granulation Quality Lometa Lometa -Slough/Fibrin -Necrosis Amt None Present (0 None Present (0 %) %) -Structure Exposed N/A N/A -Texture (Emmy-wound Skin Appearance) Scarring Scarring -Moisture (Emmy-wound Skin Appearance) No Abnormality No Abnormality -Color (Emmy-wound Skin Appearance) No Abnormality No Abnormality -Temperature (Emmy-wound Skin No Abnormality No Abnormality Appearance) (Pt Warm) (Pt Warm) -Tenderness on Palpation (Emmy-wound Skin Appearance) -Ulcer Cleansing Rinsed/ Rinsed/ Irrigated with Irrigated with Saline Saline -Foul Odor after Cleansing No No -Anesthetic Used 5% Lidocaine 5% Lidocaine Gel Gel WC - Nurse 2 - General Ulcer CM Notes Start: 07/25/22 13:07 Freq: Status: Active Protocol: Activity Type Activity Date Activity User E-sign Co-sign Detail Recorded Client Recorded Date Recorded By Document 07/25/22 13:28 [id number] 07/25/22 13:29 Document 08/01/22 13:39 [id number] 08/01/22 13:40 Document 08/08/22 13:31 [id number] 08/08/22 13:33 Document 08/15/22 13:34 [id number] 08/15/22 13:35 Document 08/22/22 14:34 [id number] 08/22/22 14:42 07/25/22 08/01/22 11 13:28 13:39 13:31 Wound Center Nurse 2 #1 R knee -Time 13:28 13:39 13:31 -Correct Patient Yes Yes Yes -Correct Side, Site, Position Yes Yes Yes -Correct Procedure Yes Yes Yes -Procedure Performed Yes Yes Yes -Type of Procedure Debridement Debridement Debridement -Clinical Debridement Subcutaneous Subcutaneous Subcutaneous -Tissue Removed Subcutaneous Subcutaneous Subcutaneous -Post Debridement (cm) - Length 2.5 2.4 2.4 -Post Debridement (cm) - Width 2.2 2.0 1.4 -Post Debridement (cm) - Depth 0.2 0.2 0.2 -Total Square (Post) (cm) 5.50 4.80 3.36 -Area of Debridement (cm) - Length 2.5 2.4 2.4 -Area of Debridement (cm) - Width 2.2 2.0 1.4 -Total Square (Area) (cm) 5.50 4.80 3.36 -Tunneling No No No -Undermining/Tunneling No No No -Circular Undermining No No No -Wound/Ulcer Outcome Not Healed Not Healed Not Healed -Ulcer Cleansing Rinsed/ Rinsed/ Rinsed/ Irrigated with Irrigated with Irrigated with Saline Saline Saline -Foul Odor after Cleansing No No No -Bioengineered Tissue No No No -Type of Bioengineered Tissue -Expiration Date -Product Lot Number -Percent Used -Lot number of Saline Used -Bleeding Controlled with Pressure Pressure Pressure -Treatment Response Procedure Procedure Procedure Tolerated Well Tolerated Well Tolerated Well -Offloading No No No -Debridement - Subq, 1st 20sq cm Yes Yes Yes -Apply Skin Sub - 1st 25 sq cm - Legs -Epifix 18mm Disc Pain Scale: 0-10 Numeric Is Patient Pain Free? Yes Yes Yes 08/15/22 08/22/22 13:34 14:34 Wound Center Nurse 2 #1 R knee -Time 13:35 14:34 -Correct Patient Yes Yes -Correct Side, Site, Position Yes Yes -Correct Procedure Yes Yes -Procedure Performed Yes Yes -Type of Procedure Debridement Debridement -Clinical Debridement Subcutaneous Subcutaneous -Tissue Removed Subcutaneous Subcutaneous -Post Debridement (cm) - Length 2.0 1.6 -Post Debridement (cm) - Width 1.3 1.4 -Post Debridement (cm) - Depth 0.2 0.2 -Total Square (Post) (cm) 2.60 2.24 -Area of Debridement (cm) - Length 2.0 1.6 -Area of Debridement (cm) - Width 1.3 1.4 -Total Square (Area) (cm) 2.60 2.24 -Tunneling No No -Undermining/Tunneling No No -Circular Undermining No No -Wound/Ulcer Outcome Not Healed Not Healed -Ulcer Cleansing Rinsed/ Rinsed/ Irrigated with Irrigated with Saline Saline -Foul Odor after Cleansing No No -Bioengineered Tissue No Yes -Type of Bioengineered Tissue Epifix 18mm Disc -Expiration Date 04/24/27 -Product Lot Number [id number] -Percent Used 100 -Lot number of Saline Used [id number] -Bleeding Controlled with Pressure Pressure -Treatment Response Procedure Procedure Tolerated Well Tolerated Well -Offloading No No -Debridement - Subq, 1st 20sq cm Yes No -Apply Skin Sub - 1st 25 sq cm - Legs 1 -Epifix 18mm Disc 3 Pain Scale: 0-10 Numeric Is Patient Pain Free? Yes Yes WC - Nurse 3 - General Ulcer D/C NN Start: 07/25/22 13:07 Freq: Status: Active Protocol: Activity Type Activity Date Activity User E-sign Co-sign Detail Recorded Client Recorded Date Recorded By Document 07/25/22 13:49 DL [id number] 07/25/22 13:50 DL Document 08/01/22 13:49 MW [id number] 08/01/22 13:50 MW Document 08/08/22 13:45 [facility] [id number] 08/08/22 13:46 [facility] Document 08/15/22 13:55 [facility] [id number] 08/15/22 13:56 [facility] Document 08/22/22 14:42 JF [id number] 08/22/22 14:43 JF Document 08/22/22 14:52 DL [id number] 08/22/22 14:53 DL 07/25/22 08/01/22 08/08/22 13:49 13:49 13:45 Wound Care Nurse 3 #1 R knee -Ulcer Cleansing Rinsed/ Rinsed/ Rinsed/ Irrigated with Irrigated with Irrigated with Saline Saline Saline -Foul Odor after Cleansing No No No -Negative Pressure Wound Therapy N/A -Primary Dressing Applied Aquacel AG 2x2 Aquacel AG 2x2, Aquacel AG 2x2 NonAdherent Contact Layer -Other Dressing -Primary Dressing Covered/Secured with Dry Gauze & Dry Gauze & Dry Gauze & Roll Gauze, Roll Gauze, Roll Gauze, Secured with Secured with Secured with Tape Tape Tape -Aquacel AG 2x2 1 1 1 -Mepilex Border Right -Lotion applied to leg before No compression wrap -Compression Wrap Calvin Wrap Calvin Wrap -Tubular Bandage Double Layer -Size of Tubigrip Used Size E -Size D ($) -Size E ($) 2 -Size F ($) -Stockings Yes Treatment Response Procedure Procedure Procedure Tolerated Well Tolerated Well Tolerated Well Pain Scale: 0-10 Numeric Is Patient Pain Free? Yes Yes Yes Teaching: Wound Center Dressing Your Wound -Person Taught Patient,Family -Teaching Method Discussion -Response to teaching Verbalize understanding WC - Visit Discharge Discharge Condition Stable Stable Stable Ambulatory Status Ambulatory Ambulatory Ambulatory Transportation Private Auto Private Auto Private Auto Accompanied by nolan Medication Reconcilliation completed & No provided to patient/care provider Clinical Summary of Care Provided Yes 08/15/22 08/22/22 08/22/22 13:55 14:42 14:52 Wound Care Nurse 3 #1 R knee -Ulcer Cleansing Rinsed/ Rinsed/ Not Cleansed Irrigated with Irrigated with Saline Saline -Foul Odor after Cleansing No No -Negative Pressure Wound Therapy -Primary Dressing Applied Aquacel AG 2x2 Mepilex Border Mepilex Border -Other Dressing Epifix -Primary Dressing Covered/Secured with Dry Gauze & Dry Gauze Roll Gauze, Secured with Tape -Aquacel AG 2x2 1 -Mepilex Border 2 1 Right -Lotion applied to leg before compression wrap -Compression Wrap -Tubular Bandage Double Layer Double Layer -Size of Tubigrip Used Size F Size D -Size D ($) 2 -Size E ($) -Size F ($) 1 -Stockings Treatment Response Procedure Procedure Tolerated Well Tolerated Well Pain Scale: 0-10 Numeric Is Patient Pain Free? Yes Yes Yes Teaching: Wound Center Dressing Your Wound -Person Taught -Teaching Method -Response to teaching WC - Visit Discharge Discharge Condition Stable Stable Stable Ambulatory Status Ambulatory Ambulatory Ambulatory Transportation Private Auto Private Auto Private Auto Accompanied by nolan Medication Reconcilliation completed & Yes provided to patient/care provider Clinical Summary of Care Provided Yes Assessment/Plan Assessment/Plan (1) Ulcer of right knee: CODE(S): L97.819 - Non-pressure chronic ulcer of other part of right lower leg with unspecified severity (2) Multiple sclerosis: CODE(S): G35 - Multiple sclerosis (3) Chronic anticoagulation: CODE(S): Z79.01 - snf (current) use of anticoagulants PLAN: Plan Patient was evaluated at the wound center today. Wound culture obtained 04/27/22 which was positive for Staphylococcus haemolyticus and MRSE. Completed Doxycycline. She has an operative debridement on 06/27/[address] Klein. He unroofed the tunnel and she is healing well. Wound care - Epifix #1 applied. 100% of the product was used. It was moistened with saline, covered with wound veil and secured with skin prep and steri strips. Covered with 2x2 gauze and mepilex silicone border dressing. Instructed to keep the dressing dry. May change the dressing as needed. Double Tubigrip up above her knee for compression. Encouraged increase protein intake to help with wound healing. Follow up one week. Call or come in sooner if develop any questions or concerns.
== END 2022-08-23 23:59 | disposition home or self-care (01) ==
LOC: WC 14:00
PROVIDERS: PCP Internal Medicine; Visit Provider Nurse Practitioner Family
DX: L97.812 Non-pressure chronic ulcer of other part of right lower leg with fat layer exposed (principal); G35 Multiple sclerosis; I82.409 Acute embolism and thrombosis of unspecified deep veins of unspecified lower extremity; N18.30 Chronic kidney disease, stage 3 unspecified; Z87.891 Personal history of nicotine dependence; Z79.01 Long term (current) use of anticoagulants; E03.9 Hypothyroidism, unspecified; R60.0 Localized edema; Z86.73 Personal history of transient ischemic attack (TIA), and cerebral infarction without residual deficits; Z86.718 Personal history of other venous thrombosis and embolism
CPT/HCPCS: 11042; 15271; 36415; 80053; 82784; 85025; Q4186

== ENCOUNTER 2022-09-12 14:00 | Outpatient (RCR) | payer MEDICARE, SELFPAY ==
[2022-08-24 00:29] VITALS: BP 157/88; PULSE 64; RESP 20; TEMP 35.7; BMI 41.6
[2022-08-29 13:15] VITALS: BP 183/86; PULSE 69; RESP 20; TEMP 36.3; BMI 41.6
--- NOTE | 2022-08-29 14:22 | PCM.WC.PN ---
History of Present Illness Date of Service: 08/29/22 Chief Complaint: Non healing right knee wound History of Wound: Patient is a 62-year-old female who presents for follow-up following right knee. She fell on 04/03/2022 and required sutures. After the sutures removed her wound started to dehisce. She was to see her PCP, Dr. Duran, who referred her to the wound center. She also has a significant history of MS and she was just recently started on Ocrevus and received half a dose for her first infusion. She has had increased falls recently and she is now walking with a walker. She states that her clinic for management of her MS. Her other medical history is hypothyroidism, CKD stage III, TIA, PE, and DVT and is on blood thinners. She quit smoking 5 years ago. On 06/27/22 - She had debridement right lower extremity wound skin and subcutaneous tissue 2 x [address] Klein. Wound care - She has been approved for Epifix. Wound culture obtained on 04/27/22 which is positive for Staphylococcus haemolyticus, MRSE. They were treated with Doxycycline. Today she denies fever, chills, nausea, vomiting. She states her appetite is good. Progress of Wound: Right knee ulcer is improving, it is smaller in size, the wound bed is beefy pink in color.? Objective Data Objective Data Vital Signs: Vital Signs Temp Pulse Resp BP 97.4 F L 69 20 H 183/86 H 08/29/22 13:15 08/29/22 13:15 08/29/22 13:15 08/29/22 13:15 Weight: 282 lb Body Mass Index (BMI) 41.6 Charges/Coding Procedures Integumentary 150xxx-152xx: 08050 Skin sub graft trnk/arm/leg Debridement Note Debridement Note Wound debrided: knee ulcer Laterality: Right Wound Grade/Stage: Stage III Type of Debridement: Excisional debridement Anesthesia Used: 4% Lidocaine Solution and 5% Lidocaine Gel Depth: Down to and including healthy tissue and in the subcutaneous layer Percentage of wound debrided: 100 Instrument Used: 3mm curette Tissue Removed: Devitalized tissue and slough Severity: Fat Layer Exposed Amount of bleeding with debridement: Mild Bleeding Controlled with: Pressure and Compression and gauze Patient tolerated procedure: Patient tolerated procedure well Post-Debridement Measurements and Additional Note: Post-Debridement Measurements/Treatment WC - Nurse 1 - General Ulcer Assessment Start: 08/29/22 13:10 Freq: Status: Active Protocol: ATA Activity Type Activity Date Activity User E-sign Co-sign Detail Recorded Client Recorded Date Recorded By Document 08/29/22 13:15 DL [id number] 08/29/22 13:18 DL 08/29/22 13:15 WC - Today's Visit Information Type of service 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 ) Arrival Mode Ambulatory Transfer Assistance None Patient Identification Verified (Name & Yes ) Patient Requires Transmission-Based No Precautions Height and Weight Body Mass Index (BMI) 41.6 BMI Classification Obese Vital Signs Temperature (97.8 F-99.1 F) 97.4 F L Temperature Source Temporal Pulse Rate (60-100) 69 Pulse Location Monitor Respiratory Rate (12-18) 20 H Respiratory rate source Observation Blood Pressure (90/60-120/80) 183/86 H Blood Pressure Mean (mm Hg) 118 Source Monitor History Since Last Visit- (Skip if this is Patient's initial visit) Have you changed medications since your No last visit? Any new allergies or adverse reactions No Had a fall/change in ADL's that may No increase risk of falls Signs or symptoms of abuse and/or No neglect since last visit Have you been in the hospital since your No last visit? Has dressing in place as prescribed Yes Has compression in place as prescribed N/A Has offloadiing in place as prescribed N/A Experienced any changes in pain level or No management Pain Scale: 0-10 Numeric Is Patient Pain Free? Yes - Nurse 1 - General Ulcer Measurement Start: 08/29/22 13:10 Freq: Status: Active Protocol: Activity Type Activity Date Activity User E-sign Co-sign Detail Recorded Client Recorded Date Recorded By Document 08/29/22 13:15 DL [id number] 08/29/22 13:18 DL 08/29/22 13:15 Wound Center Nurse 1 #1 R knee -Current Size (cm) - Length 1.4 -Current Size (cm) - Width 0.7 -Current Size (cm) - Depth 0.2 -Total Square Cm 0.98 -Photo Taken Yes -Exudate Amt Small -Exudate Type Serosanguineous -Wound Margin Distinct, Outline Attached -Granulation Amt Small (1-33%) -Granulation Quality Red -Necrosis Amt Small (1-33%) -Necrotic Tissue Type Adherent Slough -Structure Exposed N/A -Texture (Emmy-wound Skin Appearance) Scarring -Moisture (Emmy-wound Skin Appearance) No Abnormality -Color (Emmy-wound Skin Appearance) No Abnormality -Temperature (Emmy-wound Skin No Abnormality Appearance) (Pt Warm) -Ulcer Cleansing Rinsed/ Irrigated with Saline -Foul Odor after Cleansing No -Anesthetic Used 5% Lidocaine Gel WC - Nurse 2 - General Ulcer CM Notes Start: 08/29/22 13:10 Freq: Status: Active Protocol: Activity Type Activity Date Activity User E-sign Co-sign Detail Recorded Client Recorded Date Recorded By Document 08/29/22 13:30 CLAUDIA [id number] 08/29/22 13:38 CLAUDIA 08/29/22 13:30 Wound Center Nurse 2 -Time 13:34 -Correct Patient Yes -Correct Side, Site, Position Yes -Correct Procedure Yes -Procedure Performed Yes -Type of Procedure Debridement -Clinical Debridement Subcutaneous -Tissue Removed Subcutaneous -Post Debridement (cm) - Length 1.4 -Post Debridement (cm) - Width 1.0 -Post Debridement (cm) - Depth 0.2 -Total Square (Post) (cm) 1.40 -Area of Debridement (cm) - Length 1.4 -Area of Debridement (cm) - Width 1.0 -Total Square (Area) (cm) 1.40 -Tunneling No -Undermining/Tunneling No -Circular Undermining No -Wound/Ulcer Outcome Not Healed -Ulcer Cleansing Rinsed/ Irrigated with Saline -Foul Odor after Cleansing No -Bioengineered Tissue Yes -Type of Bioengineered Tissue Epifix 18mm Disc -Expiration Date 04/24/27 -Product Lot Number [id number] -Percent Used 100 -Lot number of Saline Used [id number] -Bleeding Controlled with Pressure -Treatment Response Procedure Tolerated Well -Offloading No -Debridement - Subq, 1st 20sq cm No -Apply Skin Sub - 1st 25 sq cm - Legs 1 -Epifix 18mm Disc 3 Pain Scale: 0-10 Numeric Is Patient Pain Free? Yes WC - Nurse 3 - General Ulcer D/C NN Start: 08/29/22 13:10 Freq: Status: Active Protocol: Activity Type Activity Date Activity User E-sign Co-sign Detail Recorded Client Recorded Date Recorded By Document 08/29/22 13:44 CLAUDIA [id number] 08/29/22 13:44 CLAUDIA 08/29/22 13:44 Wound Care Nurse 3 #1 R knee -Ulcer Cleansing Rinsed/ Irrigated with Saline -Foul Odor after Cleansing No -Primary Dressing Applied Mepilex Border -Primary Dressing Covered/Secured with Dry Gauze -Mepilex Border 1 Pain Scale: 0-10 Numeric Is Patient Pain Free? 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 Wound culture obtained 04/27/22 which was positive for Staphylococcus haemolyticus and MRSE. Completed Doxycycline. She has an operative debridement on 06/27/[address] Klein. He unroofed the tunnel and she is healing well. Wound care - Epifix # 2 applied. 100% of the product was used. It was moistened with saline, covered with wound veil and secured with skin prep and steri strips. Collagen hydrogel topped on wound veil to help prevent the Epifix from drying out. Covered with 2x2 gauze and Mepilex silicone border dressing. Instructed to keep the dressing dry. May change the dressing as needed. Double Tubigrip up above her knee for compression. Encouraged increase protein intake to help with wound healing. Follow up one week. Call or come in sooner if develop any questions or concerns.
[2022-09-05 14:08] VITALS: BP 175/85; PULSE 83; TEMP 36.4; BMI 41.6
--- NOTE | 2022-09-05 16:09 | PN.PCM_ITS ---
History of Present Illness Date of Service: 09/05/22 Chief Complaint: Non healing right knee wound History of Wound: Patient is a 62-year-old female who presents for follow-up following right knee. She fell on 04/03/2022 and required sutures. After the sutures removed her wound started to dehisce. She was to see her PCP, Dr. Duran, who referred her to the wound center. She also has a significant history of MS and she was just recently started on Ocrevus and received half a dose for her first infusion. She has had increased falls recently and she is now walking with a walker. She states that her clinic for management of her MS. Her other medical history is hypothyroidism, CKD stage III, TIA, PE, and DVT and is on blood thinners. She quit smoking 5 years ago. On 06/27/22 - She had debridement right lower extremity wound skin and subcutaneous tissue 2 x [address] Klein. Wound care - She has had 2 application of Epifix. Will start Collagen hydrogel covered with adaptic and topped with gauze. Wound culture obtained on 04/27/22 which is positive for Staphylococcus haemolyticus, MRSE. They were treated with Doxycycline. Today she denies fever, chills, nausea, vomiting. She states her appetite is good. Progress of Wound: Right knee ulcer is much smaller in size, the wound bed is pink in color.? Objective Data Objective Data Vital Signs: Vital Signs Temp Pulse Resp BP 97.6 F L 83 20 H 175/85 H 09/05/22 14:08 09/05/22 14:08 08/29/22 13:15 09/05/22 14:08 Weight: 282 lb Body Mass Index (BMI) 41.6 Charges/Coding Procedures Integumentary 111xxx-113xx: 94837 Gretel subq tissue 20 sq cm/< Debridement Note Debridement Note Wound debrided: knee ulcer Laterality: Right Wound Grade/Stage: Stage III Type of Debridement: Excisional debridement Anesthesia Used: 4% Lidocaine Solution and 5% Lidocaine Gel Depth: Down to and including healthy tissue and in the subcutaneous layer Percentage of wound debrided: 100 Instrument Used: 3mm curette Tissue Removed: Devitalized tissue and slough Severity: Fat Layer Exposed Amount of bleeding with debridement: Mild Bleeding Controlled with: Pressure and Compression and gauze Patient tolerated procedure: Patient tolerated procedure well Post-Debridement Measurements and Additional Note: Post-Debridement Measurements/Treatment WC - Nurse 1 - General Ulcer Assessment Start: 08/29/22 13:10 Freq: Status: Active Protocol: ATA Activity Type Activity Date Activity User E-sign Co-sign Detail Recorded Client Recorded Date Recorded By Document 08/29/22 13:15 DL [id number] 08/29/22 13:18 DL Document 09/05/22 14:08 AK [id number] 09/05/22 14:11 AK 08/29/22 09/05/22 13:15 14:08 WC - Today's Visit Information Type of service Follow-up Visit 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-up Visit (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/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 CONCENTRATOR ) ) Arrival Mode Ambulatory Ambulatory Transfer Assistance None Patient Identification Verified (Name & Yes No ) Patient Requires Transmission-Based No No Precautions Safety Precautions NA Height and Weight Body Mass Index (BMI) 41.6 41.6 BMI Classification Obese Obese Vital Signs Temperature (97.8 F-99.1 F) 97.4 F L 97.6 F L Temperature Source Temporal Temporal Pulse Rate (60-100) 69 83 Pulse Location Monitor Monitor Respiratory Rate (12-18) 20 H Respiratory rate source Observation Blood Pressure (90/60-120/80) 183/86 H 175/85 H Blood Pressure Mean (mm Hg) 118 115 Source Monitor Monitor History Since Last Visit- (Skip if this is Patient's initial visit) Have you changed medications since your No No last visit? Any new allergies or adverse reactions No No Had a fall/change in ADL's that may No No increase risk of falls Signs or symptoms of abuse and/or No No neglect since last visit Have you been in the hospital since your No No last visit? Has dressing in place as prescribed Yes Yes Has compression in place as prescribed N/A N/A Has offloadiing in place as prescribed N/A N/A Experienced any changes in pain level or No No management Left Footwear Regular Shoe Right Footwear Regular Shoe Pain Scale: 0-10 Numeric Is Patient Pain Free? Yes Yes [facility] - Nurse 1 - General Ulcer Measurement Start: 08/29/22 13:10 Freq: Status: Active Protocol: Activity Type Activity Date Activity User E-sign Co-sign Detail Recorded Client Recorded Date Recorded By Document 08/29/22 13:15 DL [id number] 08/29/22 13:18 DL Document 09/05/22 14:08 AK [id number] 09/05/22 14:11 AK 08/29/22 09/05/22 13:15 14:08 Wound Center Nurse 1 #1 R knee -Combined with other wound No -Current Size (cm) - Length 1.4 1.2 -Current Size (cm) - Width 0.7 0.8 -Current Size (cm) - Depth 0.2 0.1 -Total Square Cm 0.98 0.96 -Photo Taken Yes Yes -Tunneling No -Undermining/Tunneling No -Circular Undermining No -Change in Wound Grade/Stage No -Exudate Amt Small Small -Exudate Type Serosanguineous Serosanguineous -Wound Margin Distinct, Distinct, Outline Outline Attached Attached -Granulation Amt Small (1-33%) Medium (34-66%) -Granulation Quality Red [place] -Slough/Fibrin Yes -Necrosis Amt Small (1-33%) Medium (34-66%) -Necrotic Tissue Type Adherent Slough Adherent Slough -Structure Exposed N/A N/A -Texture (Emmy-wound Skin Appearance) Scarring No Abnormality, Assessed -Moisture (Emmy-wound Skin Appearance) No Abnormality No Abnormality, Assessed -Color (Emmy-wound Skin Appearance) No Abnormality No Abnormality, Assessed -Temperature (Emmy-wound Skin No Abnormality No Abnormality Appearance) (Pt Warm) (Pt Warm) -Tenderness on Palpation (Emmy-wound No Skin Appearance) -Ulcer Cleansing Rinsed/ Soap and Water Irrigated with Saline -Foul Odor after Cleansing No No -Anesthetic Used 5% Lidocaine 5% Lidocaine Gel Gel WC - Nurse 2 - General Ulcer CM Notes Start: 08/29/22 13:10 Freq: Status: Active Protocol: Activity Type Activity Date Activity User E-sign Co-sign Detail Recorded Client Recorded Date Recorded By Document 08/29/22 13:30 [id number] 08/29/22 13:38 Document 09/05/22 15:01 [id number] 09/05/22 15:03 08/29/22 09/05/22 13:30 15:01 Wound Center Nurse 2 #1 R knee -Time 13:34 15:01 -Correct Patient Yes Yes -Correct Side, Site, Position Yes Yes -Correct Procedure Yes Yes -Procedure Performed Yes Yes -Type of Procedure Debridement Debridement -Clinical Debridement Subcutaneous Subcutaneous -Tissue Removed Subcutaneous Subcutaneous -Post Debridement (cm) - Length 1.4 0.8 -Post Debridement (cm) - Width 1.0 0.6 -Post Debridement (cm) - Depth 0.2 0.1 -Total Square (Post) (cm) 1.40 0.48 -Area of Debridement (cm) - Length 1.4 0.8 -Area of Debridement (cm) - Width 1.0 0.6 -Total Square (Area) (cm) 1.40 0.48 -Tunneling No -Undermining/Tunneling No No -Circular Undermining No No -Wound/Ulcer Outcome Not Healed Not Healed -Ulcer Cleansing Rinsed/ Rinsed/ Irrigated with Irrigated with Saline Saline -Foul Odor after Cleansing No No -Bioengineered Tissue Yes No -Type of Bioengineered Tissue Epifix 18mm Disc -Expiration Date 04/24/27 -Product Lot Number [id number] -Percent Used 100 -Lot number of Saline Used [id number] -Bleeding Controlled with Pressure Pressure -Treatment Response Procedure Procedure Tolerated Well Tolerated Well -Offloading No No -Debridement - Subq, 1st 20sq cm No Yes -Apply Skin Sub - 1st 25 sq cm - Legs 1 -Epifix 18mm Disc 3 Pain Scale: 0-10 Numeric Is Patient Pain Free? Yes Yes WC - Nurse 3 - General Ulcer D/C NN Start: 08/29/22 13:10 Freq: Status: Active Protocol: Activity Type Activity Date Activity User E-sign Co-sign Detail Recorded Client Recorded Date Recorded By Document 08/29/22 13:44 [id number] 08/29/22 13:44 Document 09/05/22 15:10 BMF [id number] 09/05/22 15:13 BMF Edit Result 09/05/22 15:10 BMF (1) [id number] 09/05/22 15:13 BMF (1) #1 R knee - Primary Dressing Applied C Hydrogel ($), => C Hydrogel ($), NonAdherent => Mepilex Border, Contact Layer => NonAdherent => Contact Layer - Mepilex Border => 1 08/29/22 09/05/22 13:44 15:10 Wound Care Nurse 3 #1 R knee -Ulcer Cleansing Rinsed/ Rinsed/ Irrigated with Irrigated with Saline Saline -Foul Odor after Cleansing No No -Primary Dressing Applied Mepilex Border C Hydrogel ($), Mepilex Border, NonAdherent Contact Layer -Other Dressing DRSG PER MW RN -Primary Dressing Covered/Secured with Dry Gauze Dry Gauze, Secured with Tape -Mepilex Border 1 1 Treatment Response Procedure Tolerated Well Pain Scale: 0-10 Numeric Is Patient Pain Free? 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 Wound culture obtained 04/27/22 which was positive for Staphylococcus haemolyticus and MRSE. Completed Doxycycline. She has an operative debridement on 06/27/[address] Klein. He unroofed the tunnel and she is healing well. Wound care - She has had two applications of Epifix. Collagen hydrogel topped adaptic and covered with gauze daily after washing with soap and water. Double Tubigrip up above her knee for compression. Encouraged increase protein intake to help with wound healing. Follow up one week. Call or come in sooner if develop any questions or concerns.
[2022-09-12 14:02] VITALS: BP 158/95; PULSE 72; TEMP 36.2; BMI 41.6
--- NOTE | 2022-09-12 17:19 | PN.PCM_ITS ---
History of Present Illness Date of Service: 09/12/22 Chief Complaint: Non healing right knee wound History of Wound: Patient is a 62-year-old female who presents for follow-up following right knee. She fell on 04/03/2022 and required sutures. After the sutures removed her wound started to dehisce. She was to see her PCP, Dr. Duran, who referred her to the wound center. She also has a significant history of MS and she was just recently started on Ocrevus and received half a dose for her first infusion. She has had increased falls recently and she is now walking with a walker. She states that her clinic for management of her MS. Her other medical history is hypothyroidism, CKD stage III, TIA, PE, and DVT and is on blood thinners. She quit smoking 5 years ago. On 06/27/22 - She had debridement right lower extremity wound skin and subcutaneous tissue 2 x [address] Klein. Wound care - She has had 2 application of Epifix. Will start Collagen hydrogel covered with adaptic and topped with gauze. Wound culture obtained on 04/27/22 which is positive for Staphylococcus haemolyticus, MRSE. They were treated with Doxycycline. Today she denies fever, chills, nausea, vomiting. She states her appetite is good. Progress of Wound: Right knee ulcer is healed today with very fragile epithelization. Objective Data Objective Data Vital Signs: Vital Signs Temp Pulse Resp BP 97.2 F L 72 20 H 158/95 H 09/12/22 14:02 09/12/22 14:02 08/29/22 13:15 09/12/22 14:02 Weight: 282 lb Body Mass Index (BMI) 41.6 Charges/Coding Visit Charges Office Visits / Consults: 78742 OV L3 Est Physical Exam Const alert and oriented x3 General Appearance: cooperative HEENT normocephalic Resp normal respiratory effort and clear to auscultation bilaterally Effort and Inspection: able to speak in complete sentences Cardio regular rate and regular rhythm Peripheral Pulses: dorsalis pedis pulses present Extremity normal capillary refill Skin Wound Narrative: Right knee ulcer is healed with very fragile epithelialization. 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 Wound culture obtained 04/27/22 which was positive for Staphylococcus haemolyticus and MRSE. Completed Doxycycline. She has an operative debridement on 06/27/[address] Klein. He unroofed the tunnel and she is healing well. Wound care - She has had two applications of Epifix. Continue collagen hydrogel topped adaptic and covered with gauze daily after washing with soap and water for one week until the epithelial skin strengthens. Once the healed area is not as fragile, then massage the scarring daily to help soften scarring. Double Tubigrip up above her knee for compression. Avoid hot tub for another month until the healed ulcer is stronger. She may schedule her next infusion of Ocrevus. Follow up as needed.
== END 2022-09-12 16:16 | disposition home or self-care (01) ==
LOC: WC 14:00
PROVIDERS: PCP Internal Medicine; Visit Provider Nurse Practitioner Family
DX: L97.812 Non-pressure chronic ulcer of other part of right lower leg with fat layer exposed (principal); G35 Multiple sclerosis; N18.30 Chronic kidney disease, stage 3 unspecified; Z79.01 Long term (current) use of anticoagulants; S81.001A Unspecified open wound, right knee, initial encounter; Z87.891 Personal history of nicotine dependence; Z86.718 Personal history of other venous thrombosis and embolism; Z86.73 Personal history of transient ischemic attack (TIA), and cerebral infarction without residual deficits; E03.9 Hypothyroidism, unspecified
CPT/HCPCS: 11042; 15271; 99213; Q4186; G0463

== ENCOUNTER → 2023-01-22 | Outpatient (CLI) | payer MEDICARE, SELFPAY ==
[2023-01-22 12:35] LABS: Absolute Lymphocyte Count 0.93 X10^3/uL (0.83-4.51); Absolute Neutrophil Count 4.2 X10^3/uL (2.0-7.7); Basophil# 0.07 X10^3/uL; Basophil% 1.1 % (0-1); Eosinophil# 0.52 X10^3/uL; Eosinophils% 8.5 % (0-5); Hematocrit 35.4 % (37-47); Hemoglobin 11.1 g/dL (12.0-15.0); Lymphocyte # 0.93 X10^3/ul (0.83-4.51); Lymphocyte % 15.2 % (19-41); Mean Corp Hgb Conc 31.4 g/dL (32-36); Mean Corpuscular Hgb 28.7 pg (27.0-32.0); Mean Corpuscular Volume 91.5 fL (81-99); Mean Platelet Vol. 11.9 fl (6.2-12.0); Monocyte# 0.43 X10^3/uL; NRBC Flagged by Analyzer 0 % (0-5); Neutrophil # 4.16 X10^3/uL (2.7-7.7); Neutrophil % 67.9 % (47-70); Platelet Count 225 K/mm3 (150-450); RBC Distribution Width CV 14.7 % (11.6-14.6); RBC Distribution Width SD 49.5 fl (35.1-43.9); Red Blood Count 3.87 M/mm3 (4.2-5.4); White Blood Count 6.1 K/mm3 (4.4-11.0)
[2023-01-22 12:57] LABS: AST(SGOT) 12 U/L (15-37); Alanine Aminotransfer ALT/SGPT 16 U/L (13-56); Albumin, Serum 3.4 g/dL (3.2-5.0); Alkaline Phosphatase 108 U/L (45-117); Anion Gap 9 (5-15); BUN 21 mg/dL (7-18); BUN/Creat Ratio 15.9 RATIO (10-20); Calcium,Total 9.4 mg/dL (8.5-10.1); Chloride 108 mmol/L (98-107); Cholesterol 231 mg/dL (200); Creatinine, Serum 1.32 mg/dL (0.55-1.02); EST Glomerular Filtration Rate 43 mL/min (>60); Est Glom Filt Rate - Afr Amer 52 mL/min (>60); Globulin 3.4 g/dL (2.2-4.2); Glucose 104 mg/dL (74-106); High Density Lipoprotein 74 mg/dL; Potassium 3.9 mmol/L (3.5-5.1); Protein, Total 6.8 g/dL (6.4-8.2); Sodium Level 141 mmol/L (136-145); Triglycerides 101 mg/dL; Very Low Density Lipoprotein 20 mg/dL (5-40)
[2023-01-23 05:07] LABS: Immunoglobulin A 133 mg/dL (87-352); Immunoglobulin G 674 mg/dL (586-1602); Immunoglobulin M 34 mg/dL (26-217)
== END | disposition home or self-care (01) ==
LOC: BIMLAB 10:30
PROVIDERS: PCP Internal Medicine; Referring Provider Nurse Practitioner Gerontology; Visit Provider Nurse Practitioner Gerontology
DX: Z79.899 Other long term (current) drug therapy (principal); I10 Essential (primary) hypertension
CPT/HCPCS: 36415; 80053; 80061; 82784; 85025

== ENCOUNTER → 2023-01-26 | Outpatient (CLI) | payer MEDICARE, SELFPAY ==
[2023-01-26 13:16] LABS: Vitamin B12 289 pg/mL (211-911)
[2023-01-26 13:24] LABS: Ferritin 69 ng/mL (8-252); Iron 50 ug/dL (50-170); Iron Binding Capacity,Total 313 ug/dL (250-450); Thyroid Stim Hormone (TSH) 5.15 uIU/mL (0.358-3.74)
== END | disposition home or self-care (01) ==
LOC: BIMLAB 11:31
PROVIDERS: PCP Internal Medicine; Referring Provider Internal Medicine; Visit Provider Internal Medicine
DX: E03.9 Hypothyroidism, unspecified (principal); D64.9 Anemia, unspecified
CPT/HCPCS: 36415; 82607; 82728; 83540; 83550; 84443

== ENCOUNTER → 2023-01-30 | Outpatient (CLI) | payer MEDICARE, SELFPAY ==
--- NOTE | 2023-01-30 13:49 | RAD_ITS ---
EXAM: XR LEFT KNEE, 3 VIEWS CLINICAL INDICATION: None provided. Left Knee Pain TECHNIQUE: Three views of the left knee. COMPARISON: No relevant prior studies available. FINDINGS: BONES/JOINTS: Unremarkable. No acute fracture. No subluxation. Normal alignment. Preservation of the joint space. No sclerotic or destructive changes observed. SOFT TISSUES: Unremarkable. No soft tissue swelling or gas. No radiopaque foreign body. RAD/Knee 3 Views IMPRESSION: Negative left knee x-rays. Electronically Signed: Kun Hutton MD at 21:29 EDT ,
== END | disposition home or self-care (01) ==
LOC: RAD 13:49
PROVIDERS: PCP Internal Medicine; Referring Provider Internal Medicine; Visit Provider Internal Medicine
DX: M25.562 Pain in left knee (principal)
CPT/HCPCS: 73562

== ENCOUNTER → 2023-02-05 | Outpatient (CLI) | payer MEDICARE, SELFPAY ==
--- NOTE | 2023-02-05 14:40 | BI_ITS ---
MAMMOGRAPHY - BILATERAL SCREENING REASON FOR EXAM: Female, 62 years old. Routine annual screening examination. PERTINENT HISTORY: Non-contributory. TECHNIQUE: Digital bilateral breast gordo (3D mammographic acquisition) in the CC and MLO projections. 2-D mediolateral oblique (MLO) and craniocaudad (CC) views of both breasts were obtained. CAD: Full Field Digital Mammography with Computer Added Detection was performed. COMPARISON: Comparison is made with prior study dated December 23, 2021 and April 26, 2020. FINDINGS: Breast Composition: The breasts are almost entirely fatty. There are no dominant masses or suspicious calcifications. No other significant abnormalities are identified. There has been no significant change since the prior study. BI/SCRN MAMM (CAD)W/GORDO BILAT IMPRESSION: Stable bilateral screening mammogram. Yearly follow-up mammogram recommended. (A) ASSESSMENT CATEGORY: BIRADS Category 1: Negative. A letter regarding these results will be sent to the patient by the facility within 30 days. Approximately 10% of breast cancers are not detected by mammography. A normal mammogram should not delay biopsy of a clinically suspicious abnormality. [id number] Electronically Signed: Harshad Goodson MD at 9:00 EDT ,
== END | disposition home or self-care (01) ==
LOC: OPBI 14:39
PROVIDERS: PCP Internal Medicine; Referring Provider Internal Medicine; Visit Provider Internal Medicine
DX: Z12.31 Encounter for screening mammogram for malignant neoplasm of breast (principal)
CPT/HCPCS: 77063; 77067

== ENCOUNTER 2023-06-05 09:30 | Outpatient (RCR) | payer MEDICARE, SELFPAY ==
--- NOTE | 2023-05-03 16:28 | HP.PTEVAL_ITS ---
Patient's Visit Information Visit Information Visit Information: FERN GILLIS is a 62 year old F referred to Physical Therapy by KAREN BEAUCHAMP with a diagnosis of L knee OA. Date of Evaluation: 05/03/23 Physical Therapist: Kun Salazar, PT, ATC Visit Plan Frequency: 2-3x /Week Duration: 4-6 Weeks Plan: Pt has MS. L knee stretching and strengthening, core stab ex's, balance and proprio, nustep, and HEP. Subjective Subjective: Pt reports L knee has been sore for approximately 6 months. Pt reports she fell at that time and landed on her R knee which resulted in a large laceration. Pt reports she believes she may have overcompensated with her L knee, resulting in L knee pain now. Pt reports she has fallen in the past secondary to her MS. Pt notes she is on meds now that have controlled her MS progression. Pt reports she had x-rays which revealed OA of the L knee. Pt reports her L knee wants to give out on her on occasion and does pop some times. Pt denies her L knee giving out on her. Pt reports difficulty getting to sleep some times secondary to pain. Pt reports she has tingling and numbness throughout her body secondary to MS. Pt has stairs into her house from the garage, and has to negotiate them one step at a time. 0/10 pain at rest, 5/10 pain at worst Pain L knee pain: Pain Intensity (Out of 10): 0 Pain Intensity Range: 5 Objective Objective: Neuro: B LE sensation is WNL to light touch. B achilles reflex= 2/3 Palpation: Sig pain on the medial aspect of L knee. No obvious deformity noted. ROM: B knees 0-110 degrees MMT: R knee flex= 38, ext= 51: L knee flex= 34, ext= 47 #F Girth at joint line: L knee 52 cm, R knee 49 cm Balance/Special Test Scores Lower Extremity Functional Score: 24 Goals Goal 1:: Decrease L knee pain x 50% to aid with sleep Goal Time Frame: 4-6 Weeks Goal 2:: Increase L knee strength x 1 grade to aid with stair negotiation Goal Time Frame: 4-6 Weeks Goal 3:: I with HEP Goal Time Frame: 4-6 Weeks Rehabilitation Potential Physical Therapy Diagnosis: Pt has L knee pain, weakness, and difficulty with sleep secondary to L knee OA Rehabilitation Potential: Good Anticipated Interventions Patient/Client Instruction: Educate patient on: Condition and Plan of Care For the Purpose of:: To improve self management Therapeutic Exercise to Include: Strength training, Balance training, Flexibilty training, Active ROM and Dynamic Lumbar Stabilization For the Purpose of:: To decrease pain, To improve muscle performance and motor function and To increase tolerance to activity/condition/position Cryotherapy (ice pack, ice massage): Yes For the Purpose of:: To decrease pain Text: Thank you for the opportunity to evaluate your patient. For Medicare and Medicare HMO plans, please review the plan of care and approve it. It will need to be FAXED BACK to us at [phone] for Medicare purposes. For Medicare only, by signing this I certify the plan of care. Please let me know if there are questions or concerns regarding this plan of care. Physician Signature: _Date:
--- NOTE | 2023-06-05 10:11 | HP.PTDCSUM ---
Discharge Summary D/C summary: It has been my pleasure to treat FERN GILLIS referred by KAREN BEAUCHAMP, with the diagnosis of L knee OA for a total of 8 visit(s). Discharge Date: Please see the following information for a summary of their discharge status. Subjective Subjective: I have made improvements Pain L knee pain: Pain Intensity (Out of 10): 2 Overall Improvement % Improvement: 25 Objective Objective/Function: L knee pain ranges from 2-5/10 L knee MMT: flex= 4+/5 (39 #F), ext= 5/5 (41 #F) Pt is I with HEP Pt is showing some progress at this time, regression in other areas Goals Goal 1:: Decrease L knee pain x 50% to aid with sleep Goal Progress: Progressing Goal 2:: Increase L knee strength x 1 grade to aid with stair negotiation Goal Progress: Progressing Goal 3:: I with HEP Goal Progress: Goal Met Plan Plan: Discontinue to an independent gym routine D/C Information d/c sentence: If there are questions or concerns regarding this patient's physical therapy, please feel free to call me at [phone]. Thank you for the referral of this patient. Sincerely, Kun Salazar, PT, ATC Balance/Gait/Functional tests Balance/Special Test Scores Lower Extremity Functional Score: 28 Improvement % Improvement: 25
== END 2023-06-05 13:53 | disposition home or self-care (01) ==
LOC: PT 09:30
PROVIDERS: PCP Internal Medicine
DX: M17.12 Unilateral primary osteoarthritis, left knee (principal)
CPT/HCPCS: 97110; 97161; 97164

== ENCOUNTER → 2023-06-13 | Outpatient (CLI) | payer MEDICARE, SELFPAY ==
[2023-06-13 15:16] LABS: Absolute Lymphocyte Count 1.12 X10^3/uL (0.83-4.51); Absolute Neutrophil Count 5.6 X10^3/uL (2.0-7.7); Basophil# 0.08 X10^3/uL; Eosinophil# 0.44 X10^3/uL; Eosinophils% 5.7 % (0-5); Hematocrit 38.2 % (37-47); Hemoglobin 11.8 g/dL (12.0-15.0); Lymphocyte # 1.12 X10^3/ul (0.83-4.51); Lymphocyte % 14.4 % (19-41); Mean Corp Hgb Conc 30.9 g/dL (32-36); Mean Corpuscular Hgb 27.6 pg (27.0-32.0); Mean Corpuscular Volume 89.3 fL (81-99); Monocyte# 0.53 X10^3/uL; Monocyte% 6.8 % (0-10); NRBC Flagged by Analyzer 0 % (0-5); Neutrophil # 5.59 X10^3/uL (2.7-7.7); Platelet Count 296 K/mm3 (150-450); RBC Distribution Width SD 48.6 fl (35.1-43.9); Red Blood Count 4.28 M/mm3 (4.2-5.4); White Blood Count 7.8 K/mm3 (4.4-11.0)
[2023-06-13 15:36] LABS: AST(SGOT) 10 U/L (15-37); Alanine Aminotransfer ALT/SGPT 18 U/L (13-56); Albumin, Serum 3.6 g/dL (3.2-5.0); Alkaline Phosphatase 134 U/L (45-117); Anion Gap 5 (5-15); BUN 24 mg/dL (7-18); BUN/Creat Ratio 20.9 RATIO (10-20); Calcium,Total 9.2 mg/dL (8.5-10.1); Chloride 110 mmol/L (98-107); Creatinine, Serum 1.15 mg/dL (0.55-1.02); EST Glomerular Filtration Rate 50 mL/min (>60); Est Glom Filt Rate - Afr Amer 61 mL/min (>60); Globulin 3.6 g/dL (2.2-4.2); Glucose 97 mg/dL (74-106); Potassium 4.1 mmol/L (3.5-5.1); Protein, Total 7.2 g/dL (6.4-8.2); Sodium Level 139 mmol/L (136-145); Thyroid Stim Hormone (TSH) 2.11 uIU/mL (0.358-3.74)
[2023-06-18 16:09] LABS: Immunoglobulin A 152 mg/dL (87-352); Immunoglobulin E 10 IU/mL (6-495); Immunoglobulin G 666 mg/dL (586-1602); Immunoglobulin M 32 mg/dL (26-217)
== END | disposition home or self-care (01) ==
LOC: BIMLAB 13:07
PROVIDERS: PCP Internal Medicine; Visit Provider Nurse Practitioner Gerontology
DX: Z79.899 Other long term (current) drug therapy (principal); E03.9 Hypothyroidism, unspecified
CPT/HCPCS: 36415; 80053; 82784; 82785; 84443; 85025

== ENCOUNTER → 2023-12-17 | Outpatient (CLI) | payer MEDICARE, BC, SELFPAY ==
[2023-12-17 15:37] LABS: Absolute Lymphocyte Count 1.31 X10^3/uL (0.83-4.51); Absolute Neutrophil Count 4.5 X10^3/uL (2.0-7.7); Basophil# 0.09 X10^3/uL; Basophil% 1.2 % (0-1); Eosinophil# 0.85 X10^3/uL; Eosinophils% 11.6 % (0-5); Hematocrit 36.8 % (37-47); Hemoglobin 11.5 g/dL (12.0-15.0); Lymphocyte # 1.31 X10^3/ul (0.83-4.51); Lymphocyte % 17.9 % (19-41); Mean Corp Hgb Conc 31.3 g/dL (32-36); Mean Corpuscular Hgb 28.1 pg (27.0-32.0); Monocyte# 0.55 X10^3/uL; Monocyte% 7.5 % (0-10); NRBC Flagged by Analyzer 0 % (0-5); Neutrophil % 61.4 % (47-70); Platelet Count 269 K/mm3 (150-450); RBC Distribution Width CV 15.1 % (11.6-14.6); RBC Distribution Width SD 49.5 fl (35.1-43.9); Red Blood Count 4.09 M/mm3 (4.2-5.4); White Blood Count 7.3 K/mm3 (4.4-11.0)
[2023-12-17 16:26] LABS: AST(SGOT) 14 U/L (15-37); Alanine Aminotransfer ALT/SGPT 18 U/L (13-56); Albumin, Serum 3.3 g/dL (3.2-5.0); Alkaline Phosphatase 124 U/L (45-117); Anion Gap 7 (5-15); BUN 19 mg/dL (7-18); BUN/Creat Ratio 14.1 RATIO (10-20); Calcium,Total 9.2 mg/dL (8.5-10.1); Chloride 113 mmol/L (98-107); Creatinine, Serum 1.35 mg/dL (0.55-1.02); EST Glomerular Filtration Rate 42 mL/min (>60); Est Glom Filt Rate - Afr Amer 51 mL/min (>60); Globulin 3.4 g/dL (2.2-4.2); Glucose 94 mg/dL (74-106); Potassium 4.1 mmol/L (3.5-5.1); Protein, Total 6.7 g/dL (6.4-8.2); Sodium Level 142 mmol/L (136-145)
[2023-12-24 15:07] LABS: Immunoglobulin A 110 mg/dL (87-352); Immunoglobulin E 6 IU/mL (6-495); Immunoglobulin G 520 mg/dL (586-1602); Immunoglobulin M 29 mg/dL (26-217)
== END | disposition home or self-care (01) ==
LOC: BIMLAB 14:07
PROVIDERS: PCP Internal Medicine; Referring Provider Nurse Practitioner Gerontology; Visit Provider Nurse Practitioner Gerontology
DX: Z79.899 Other long term (current) drug therapy (principal)
CPT/HCPCS: 36415; 80053; 82784; 82785; 85025

== ENCOUNTER → 2024-01-31 | Outpatient (CLI) | payer MEDICARE, BC, SELFPAY ==
[2024-01-31 16:14] LABS: Absolute Lymphocyte Count 1.41 X10^3/uL (0.83-4.51); Absolute Neutrophil Count 4.3 X10^3/uL (2.0-7.7); Basophil% 1.4 % (0-1); Eosinophil# 0.94 X10^3/uL; Eosinophils% 12.7 % (0-5); Hematocrit 37.8 % (37-47); Hemoglobin 11.4 g/dL (12.0-15.0); Lymphocyte # 1.41 X10^3/ul (0.83-4.51); Lymphocyte % 19.1 % (19-41); Mean Corp Hgb Conc 30.2 g/dL (32-36); Mean Corpuscular Hgb 27.8 pg (27.0-32.0); Mean Corpuscular Volume 92.2 fL (81-99); Mean Platelet Vol. 11.9 fl (6.2-12.0); Monocyte# 0.57 X10^3/uL; Monocyte% 7.7 % (0-10); NRBC Flagged by Analyzer 0 % (0-5); Neutrophil # 4.34 X10^3/uL (2.7-7.7); Neutrophil % 58.8 % (47-70); Platelet Count 261 K/mm3 (150-450); RBC Distribution Width CV 14.6 % (11.6-14.6); RBC Distribution Width SD 49.2 fl (35.1-43.9); White Blood Count 7.4 K/mm3 (4.4-11.0)
[2024-01-31 16:30] LABS: Vitamin B12 270 pg/mL (211-911)
[2024-01-31 16:45] LABS: AST(SGOT) 16 U/L (15-37); Alanine Aminotransfer ALT/SGPT 19 U/L (13-56); Albumin, Serum 3.4 g/dL (3.2-5.0); Alkaline Phosphatase 114 U/L (45-117); Anion Gap 4 (5-15); BUN 24 mg/dL (7-18); BUN/Creat Ratio 18.6 RATIO (10-20); Calcium,Total 9.1 mg/dL (8.5-10.1); Chloride 112 mmol/L (98-107); Cholesterol 197 mg/dL (200); Creatinine, Serum 1.29 mg/dL (0.55-1.02); EST Glomerular Filtration Rate 44 mL/min (>60); Est Glom Filt Rate - Afr Amer 53 mL/min (>60); Globulin 3.3 g/dL (2.2-4.2); Glucose 89 mg/dL (74-106); High Density Lipoprotein 63 mg/dL; Protein, Total 6.7 g/dL (6.4-8.2); Sodium Level 141 mmol/L (136-145); Triglycerides 141 mg/dL; Very Low Density Lipoprotein 28 mg/dL (5-40)
== END | disposition home or self-care (01) ==
LOC: BIMLAB 13:19
PROVIDERS: PCP Internal Medicine; Referring Provider Internal Medicine; Visit Provider Internal Medicine
DX: D64.9 Anemia, unspecified (principal); E03.9 Hypothyroidism, unspecified
CPT/HCPCS: 36415; 80053; 80061; 82607; 85025

== ENCOUNTER → 2024-02-25 | Outpatient (CLI) | payer MEDICARE, BC, SELFPAY | END | disposition home or self-care (01) | LOC: PSN 09:07 | PROVIDERS: PCP Internal Medicine; Referring Provider Internal Medicine; Visit Provider Internal Medicine | DX: R05.3 Chronic cough (principal); J40 Bronchitis, not specified as acute or chronic | CPT/HCPCS: 94060; 94726; 94729 ==

== ENCOUNTER → 2024-04-30 | Outpatient (CLI) | payer MEDICARE, BC, SELFPAY ==
[2024-04-30] MEDS: 0.9 % NaCl (Sterile) Posiflush 10 mL IV (13:30)
--- NOTE | 2024-04-30 13:40 | RAD_ITS ---
CLINICAL HISTORY: Female, 63 years old. Portogram. PROCEDURE: Portogram. FLUOROSCOPY TIME (if supplied): (13 seconds) minutes/seconds. 10.3 mGy STERILE BARRIER TECHNIQUE: The following sterile barrier precautions were used during the procedure: hand hygiene; use of 2% chlorhexidine aseptic; use of a cap, mask, sterile gown, sterile gloves, sterile full body drape, and a large sterile sheet. TECHNIQUE: 20 cc of Isovue 300 was injected into the indwelling portacatheter. The catheter is patent with free flow. # of Images: 1 RAD/Con Inj Alberto Eval [employer] Fluro IMPRESSION: Patency of the portacatheter. Electronically Signed: Harshad Goodson MD at 14:02 EDT ,
[2024-04-30] MEDS: 0.9% Saline Lock 10 ML Syringe IV (13:42)
== END | disposition home or self-care (01) ==
LOC: RAD 13:03
PROVIDERS: PCP Internal Medicine; Referring Provider Internal Medicine; Visit Provider Internal Medicine
DX: G35 Multiple sclerosis (principal)
CPT/HCPCS: 36598; Q9967

== ENCOUNTER → 2024-05-12 | Outpatient (CLI) | payer MEDICARE, BC, SELFPAY ==
[2024-05-12 19:17] LABS: Anion Gap 6 (5-15); BUN 22 mg/dL (7-18); BUN/Creat Ratio 18.2 RATIO (10-20); Calcium,Total 9.2 mg/dL (8.5-10.1); Chloride 111 mmol/L (98-107); Creatinine, Serum 1.21 mg/dL (0.55-1.02); EST Glomerular Filtration Rate 47 mL/min (>60); Est Glom Filt Rate - Afr Amer 57 mL/min (>60); Glucose 94 mg/dL (74-106); Sodium Level 143 mmol/L (136-145)
== END | disposition home or self-care (01) ==
LOC: BIMLAB 11:29
PROVIDERS: PCP Internal Medicine; Referring Provider Internal Medicine; Visit Provider Internal Medicine
DX: I10 Essential (primary) hypertension (principal)
CPT/HCPCS: 36415; 80048

== ENCOUNTER → 2024-05-29 | Outpatient (CLI) | payer MEDICARE, BC, SELFPAY ==
--- NOTE | 2024-05-29 13:20 | BD_ITS ---
STUDY: DUAL ENERGY X-RAY ABSORPTIOMETRY / DXA REASON FOR EXAM: Female, 63 years old. Post menopausal TECHNIQUE: Bone Mineral Density (BMD) measurements of lumbar spine and bilateral hips were obtained. COMPARISON: Comparison is made with prior study June 24, 2020. FINDINGS: Lumbar Spine (L1-L4): g/cm2 (0.968) / T-score (-1.0) / Z-score (0.9) Findings are suggestive of osteopenia with a low fracture risk. Left Femur Total: g/cm2 (0.873) / T-score (-0.6) / Z-score (0.7) Left Femoral Neck: g/cm2 (0.607) / T-score (-2.2) / Z-score (-0.6) Right Femur Total: g/cm2 (0.839) / T-score (-0.8) / Z-score (0.4) Right Femoral Neck: g/cm2 (0.625) / T-score (-2.0) / Z-score (-0.5) The T-Scores on the most recent prior examination were: Lumbar Spine (L1-L4): There has been worsening of bone density since the previous examination. Left Femur Total: which represents an improvement of 1.9%. Right Femur Total: which represents an improvement of 0.6%. BD/Dexa Bone Density Study IMPRESSION: The patient is considered osteopenic as outlined below according to World Pato Organization (WHO) criteria with a high fracture risk. There has been improvement of bone density since the previous examination. Reference Information: The T-score is the number of standard deviations above or below the standard which is normal for young adults at their peak bone mineral density. The World Health Organization (WHO) interprets the T-scores as follows: Above -1 Normal bone density Between -1 and -2.5 Osteopenia Equal to / or below -2.5 Osteoporosis As a practical clinical guideline, osteopenia may be graded as follows: Mild -1 through -1.5 Moderate -1.6 through -2.0 Severe -2.1 through -2.4 The Z-score is the number of standard deviations above or below age-matched controls. A Z-score of less than -1.5 would be considered abnormal. References: 1. NIH Osteoporosis and Related Bone Diseases www osteo.org 2. International Society for Clinical Densitometry www iscd.org 3. National Osteoporosis Foundation www nof.org Electronically Signed: Harshad Goodson MD at 12:55 EDT ,
--- NOTE | 2024-05-29 13:20 | BI_ITS ---
MAMMOGRAPHY - BILATERAL SCREENING REASON FOR EXAM: Female, 63 years old. Routine annual screening examination. PERTINENT HISTORY: Non-contributory. TECHNIQUE: Digital bilateral breast gordo (3D mammographic acquisition) in the CC and MLO projections. 2-D mediolateral oblique (MLO) and craniocaudad (CC) views of both breasts were obtained. CAD: Full Field Digital Mammography with Computer Added Detection was performed. COMPARISON: Comparison is made with prior study dated February 05, 2023 and December 23, 2021. FINDINGS: Breast Composition: The breasts are almost entirely fatty. There are no dominant masses or suspicious calcifications. No other significant abnormalities are identified. There has been no significant change since the prior study. BI/SCRN MAMM (CAD)W/GORDO BILAT IMPRESSION: Stable bilateral screening mammogram. Yearly follow-up mammogram recommended. (A) ASSESSMENT CATEGORY: BIRADS Category 1: Negative. A letter regarding these results will be sent to the patient by the facility within 30 days. Approximately 10% of breast cancers are not detected by mammography. A normal mammogram should not delay biopsy of a clinically suspicious abnormality. [id number] Electronically Signed: Harshad Goodson MD at 14:59 EDT ,
== END | disposition home or self-care (01) ==
LOC: OPBD 13:18
PROVIDERS: PCP Internal Medicine; Referring Provider Internal Medicine; Visit Provider Internal Medicine
DX: Z12.31 Encounter for screening mammogram for malignant neoplasm of breast (principal); Z78.0 Asymptomatic menopausal state
CPT/HCPCS: 77063; 77067; 77080

== ENCOUNTER → 2024-06-23 | Outpatient (CLI) | payer MEDICARE, BC, SELFPAY ==
[2024-06-23 15:08] LABS: Absolute Lymphocyte Count 0.65 X10^3/uL (0.83-4.51); Absolute Neutrophil Count 3.8 X10^3/uL (2.0-7.7); Basophil# 0.07 X10^3/uL; Basophil% 1.2 % (0-1); Eosinophil# 0.48 X10^3/uL; Eosinophils% 8.5 % (0-5); Hematocrit 38.9 % (37-47); Hemoglobin 11.9 g/dL (12.0-15.0); Lymphocyte # 0.65 X10^3/ul (0.83-4.51); Lymphocyte % 11.6 % (19-41); Mean Corp Hgb Conc 30.6 g/dL (32-36); Mean Corpuscular Hgb 27.8 pg (27.0-32.0); Mean Corpuscular Volume 90.9 fL (81-99); Mean Platelet Vol. 11.9 fl (6.2-12.0); Monocyte# 0.58 X10^3/uL; Monocyte% 10.3 % (0-10); NRBC Flagged by Analyzer 0 % (0-5); Neutrophil # 3.82 X10^3/uL (2.7-7.7); Platelet Count 225 K/mm3 (150-450); RBC Distribution Width CV 14.2 % (11.6-14.6); RBC Distribution Width SD 46.9 fl (35.1-43.9); Red Blood Count 4.28 M/mm3 (4.2-5.4); White Blood Count 5.6 K/mm3 (4.4-11.0)
[2024-06-23 16:15] LABS: ALB/GLOB Ratio 1.1 RATIO (0.9-2.4); AST(SGOT) 13 U/L (15-37); Alanine Aminotransfer ALT/SGPT 17 U/L (13-56); Albumin, Serum 3.4 g/dL (3.2-5.0); Alkaline Phosphatase 119 U/L (45-117); Anion Gap 7 (5-15); BUN 22 mg/dL (7-18); BUN/Creat Ratio 16.9 RATIO (10-20); Calcium,Total 10.1 mg/dL (8.5-10.1); Chloride 111 mmol/L (98-107); EST Glomerular Filtration Rate 44 mL/min (>60); Est Glom Filt Rate - Afr Amer 53 mL/min (>60); Globulin 3.2 g/dL (2.2-4.2); Glucose 96 mg/dL (74-106); Potassium 3.9 mmol/L (3.5-5.1); Protein, Total 6.6 g/dL (6.4-8.2); Sodium Level 142 mmol/L (136-145)
[2024-06-23 16:49] LABS: Thyroid Stim Hormone (TSH) 0.775 uIU/mL (0.358-3.740)
[2024-06-25 05:07] LABS: Immunoglobulin G 541 mg/dL (586-1602)
== END | disposition home or self-care (01) ==
LOC: BIMLAB 13:50
PROVIDERS: PCP Internal Medicine; Referring Provider Nurse Practitioner Gerontology; Visit Provider Nurse Practitioner Gerontology
DX: Z79.899 Other long term (current) drug therapy (principal)
CPT/HCPCS: 36415; 80053; 82784; 84443; 85025

== ENCOUNTER → 2024-09-25 | Outpatient (CLI) | payer MEDICARE, BC, SELFPAY ==
[2024-09-25 15:06] LABS: Absolute Lymphocyte Count 1.11 X10^3/uL (0.83-4.51); Absolute Neutrophil Count 5.9 X10^3/uL (2.0-7.7); Basophil# 0.08 X10^3/uL; Eosinophil# 0.64 X10^3/uL; Eosinophils% 7.7 % (0-5); Hematocrit 38.7 % (37-47); Lymphocyte # 1.11 X10^3/ul (0.83-4.51); Lymphocyte % 13.4 % (19-41); Mean Corpuscular Hgb 27.6 pg (27.0-32.0); Mean Corpuscular Volume 89.2 fL (81-99); Mean Platelet Vol. 11.5 fl (6.2-12.0); Monocyte# 0.54 X10^3/uL; Monocyte% 6.5 % (0-10); NRBC Flagged by Analyzer 0 % (0-5); Neutrophil # 5.91 X10^3/uL (2.7-7.7); Platelet Count 244 K/mm3 (150-450); RBC Distribution Width CV 14.3 % (11.6-14.6); RBC Distribution Width SD 46.4 fl (35.1-43.9); Red Blood Count 4.34 M/mm3 (4.2-5.4); White Blood Count 8.3 K/mm3 (4.4-11.0)
[2024-09-25 15:42] LABS: ALB/GLOB Ratio 1.1 RATIO (0.9-2.4); AST(SGOT) 14 U/L (15-37); Alanine Aminotransfer ALT/SGPT 19 U/L (13-56); Albumin, Serum 3.6 g/dL (3.2-5.0); Alkaline Phosphatase 116 U/L (45-117); Anion Gap 6 (5-15); BUN 26 mg/dL (7-18); BUN/Creat Ratio 17.1 RATIO (10-20); Calcium,Total 9.2 mg/dL (8.5-10.1); Chloride 111 mmol/L (98-107); Creatinine, Serum 1.52 mg/dL (0.55-1.02); EST Glomerular Filtration Rate 36 mL/min (>60); Est Glom Filt Rate - Afr Amer 44 mL/min (>60); Globulin 3.2 g/dL (2.2-4.2); Glucose 92 mg/dL (74-106); Potassium 4.2 mmol/L (3.5-5.1); Protein, Total 6.8 g/dL (6.4-8.2); Sodium Level 142 mmol/L (136-145)
== END | disposition home or self-care (01) ==
LOC: BIMLAB 13:26
PROVIDERS: PCP Internal Medicine; Referring Provider Nurse Practitioner Gerontology; Visit Provider Nurse Practitioner Gerontology
DX: Z79.899 Other long term (current) drug therapy (principal)
CPT/HCPCS: 36415; 80053; 85025

== ENCOUNTER → 2024-11-27 | Outpatient (CLI) | payer MEDICARE, BC, SELFPAY ==
--- NOTE | 2024-11-27 13:00 | MRI_ITS ---
PROCEDURE: BRAIN W/WO CONTRAST REASON FOR EXAM: Multiple sclerosis TECHNIQUE: Multiplanar, multisequence MRI of the brain performed with administration of gadolinium COMPARISON: December 2021 FINDINGS: Findings in keeping with the patient's history of demyelination with moderate periventricular plaquing noted on background global volume loss and chronic small-vessel ischemic change.. Lacunar infarct seen in the inferior left cerebellum No new lesions detected. No abnormal enhancement to suggest active demyelination. No mass effect. No midline shift. Stable ventricular size. Pituitary region and craniocervical junction otherwise unremarkable. Mastoid air cells and paranasal sinuses are largely clear MRI/Brain W/WO Contrast IMPRESSION: Stable features of demyelination. No new lesions. No abnormal enhancement. Senescent changes Reading Location: [id number]
--- NOTE | 2024-11-27 13:45 | MRI_ITS ---
PROCEDURE: MRI of the cervical spine without and with intravenous contrast. REASON FOR EXAM: Multiple sclerosis. TECHNIQUE: Multiplanar, multisequence MRI images of the cervical spine were obtained without and with intravenous contrast. 25 cc Clariscan IV contrast was administered. COMPARISON: 01/03/2022. FINDINGS: Included portions of the skull base and craniocervical junction are intact. Cervical vertebral bodies normal in height, alignment, and marrow signal. No acute fracture, focal subluxation, or abnormal marrow replacement process of the cervical spine. Moderate patchy areas of increased T2/stir signal involving the upper and lower portions of the cervical spinal cord, as well as the upper thoracic spinal cord are similar to slightly progressed from the previous study. No significant volume loss or expansion of the spinal cord is demonstrated. On postcontrast images, no areas of abnormal spinal cord enhancement. The cervical soft tissues show no specific abnormality. C2-3: No focal disc herniation, significant central spinal canal, or neural foraminal narrowing. C3-4: No focal disc herniation, significant central spinal canal, or neural foraminal narrowing. C4-5: No focal disc herniation, significant central spinal canal, or neural foraminal narrowing. C5-6: Slight disc bulge without focal disc herniation or significant central spinal canal narrowing. No significant right neural foraminal narrowing. Moderate left neural foraminal narrowing. C6-7: No focal disc herniation, significant central spinal canal, or neural foraminal narrowing. C7-T1: No focal disc herniation, significant central spinal canal, or neural foraminal narrowing. Included upper thoracic intervertebral disc spaces unremarkable. MRI/Spine Cervical W/WO Contrast IMPRESSION: 1. No acute bony abnormality of the cervical spine. 2. Moderate patchy areas of increased T2/stir signal of the cervical spinal cor d, as well as the upper thoracic spinal cord, similar to slightly progressed from the prior study of 01/03/2022. No signific ant cervical spinal cord volume loss or expansion. No abnormal spinal cord enhancement on postcontrast images. 3. No focal disc herniation or significant central spinal canal narrowing in th e cervical spine. Moderate left neural foraminal narrowing at C5-6. Reading Location: [facility]
== END | disposition home or self-care (01) ==
LOC: MRI 12:29
PROVIDERS: PCP Internal Medicine; Referring Provider Nurse Practitioner Gerontology; Visit Provider Nurse Practitioner Gerontology
DX: G35 Multiple sclerosis (principal)
CPT/HCPCS: 70553; 72156; A9575

== ENCOUNTER → 2024-12-30 | Outpatient (CLI) | payer MEDICARE, BC, SELFPAY ==
[2024-12-30 15:02] LABS: Absolute Lymphocyte Count 1.08 X10^3/uL (0.83-4.51); Basophil% 1.3 % (0-1); Eosinophil# 0.86 X10^3/uL; Eosinophils% 11.3 % (0-5); Hematocrit 39.3 % (37-47); Hemoglobin 12.4 g/dL (12.0-15.0); Lymphocyte # 1.08 X10^3/ul (0.83-4.51); Lymphocyte % 14.2 % (19-41); Mean Corp Hgb Conc 31.6 g/dL (32-36); Mean Corpuscular Hgb 28.3 pg (27.0-32.0); Mean Corpuscular Volume 89.7 fL (81-99); Mean Platelet Vol. 12.2 fl (6.2-12.0); Monocyte# 0.55 X10^3/uL; Monocyte% 7.3 % (0-10); NRBC Flagged by Analyzer 0 % (0-5); Neutrophil # 4.97 X10^3/uL (2.7-7.7); Neutrophil % 65.6 % (47-70); Platelet Count 272 K/mm3 (150-450); RBC Distribution Width CV 14.1 % (11.6-14.6); RBC Distribution Width SD 45.4 fl (35.1-43.9); Red Blood Count 4.38 M/mm3 (4.2-5.4); White Blood Count 7.6 K/mm3 (4.4-11.0)
[2024-12-30 15:19] LABS: ALB/GLOB Ratio 1.6 RATIO (0.9-2.4); AST(SGOT) 14 U/L (<=31); Alanine Aminotransfer ALT/SGPT 10 U/L (<=34); Alkaline Phosphatase 126 U/L (35-104); Anion Gap 11 (5-15); BUN 23 mg/dL (4-19); BUN/Creat Ratio 19.7 RATIO (10-20); Calcium,Total 9.4 mg/dL (7.6-11.0); Chloride 109 mmol/L (98-108); Creatinine, Serum 1.16 mg/dL (0.70-1.20); EST Glomerular Filtration Rate 52 (>60); Globulin 2.5 g/dL (2.2-4.2); Glucose 93 mg/dL (70-99); Potassium 4.3 mmol/L (3.3-5.1); Protein, Total 6.4 g/dL (5.9-8.4); Sodium Level 142 mmol/L (133-145); Total Bilirubin 0.39 mg/dL (0.00-1.30)
[2025-01-01 05:07] LABS: Immunoglobulin G 549 mg/dL (586-1602)
== END | disposition home or self-care (01) ==
LOC: BIMLAB 11:32
PROVIDERS: PCP Internal Medicine; Visit Provider Nurse Practitioner Gerontology
DX: G35 Multiple sclerosis (principal); Z79.899 Other long term (current) drug therapy
CPT/HCPCS: 36415; 80053; 82784; 85025

== ENCOUNTER → 2025-05-29 | Outpatient (CLI) | payer MEDICARE, BC, SELFPAY ==
[2025-05-29 12:51] LABS: Hematocrit 39.8 % (37-47); Hemoglobin 12.1 g/dL (12.0-15.0); Immature Granulocytes Count 0.020 X10^3/uL (0.0-0.0); Mean Corp Hgb Conc 30.4 g/dL (32-36); Mean Corpuscular Volume 91.1 fL (81-99); Mean Platelet Vol. 11.4 fl (6.2-12.0); NRBC Flagged by Analyzer 0 % (0-5); Platelet Count 238 K/mm3 (150-450); RBC Distribution Width CV 14.4 % (11.6-14.6); RBC Distribution Width SD 48.2 fl (35.1-43.9); Red Blood Count 4.37 M/mm3 (4.2-5.4); White Blood Count 7.3 K/mm3 (4.4-11.0)
[2025-05-29 13:39] LABS: AST(SGOT) 15 U/L (<=31); Alanine Aminotransfer ALT/SGPT 14 U/L (<=34); Albumin, Serum 4.0 g/dL (3.4-4.8); Alkaline Phosphatase 138 U/L (35-104); Anion Gap 10 (5-15); BUN 22 mg/dL (4-19); BUN/Creat Ratio 19.1 RATIO (10-20); Calcium,Total 9.7 mg/dL (7.6-11.0); Carbon Dioxide 24.3 mmol/L (21.0-32.0); Chloride 107 mmol/L (98-108); Cholesterol 164 mg/dL (<=200); Globulin 2.5 g/dL (2.2-4.2); Glucose 97 mg/dL (70-99); Low Density Lipoprotein Calc. 71 mg/dL; Potassium 4.6 mmol/L (3.3-5.1); Triglycerides 109 mg/dL; Very Low Density Lipoprotein 22 mg/dL (5-40); Vitamin D,25 Hydroxy 31.1 ng/mL (30-100); cholesterol:hdl ratio screen 2.31
[2025-05-31 08:39] LABS: Immunoglobulin G 537 mg/dL (586-1602)
== END | disposition home or self-care (01) ==
PROVIDERS: PCP Internal Medicine; Referring Provider Internal Medicine; Visit Provider Internal Medicine
DX: G35 Multiple sclerosis (principal); Z13.0 Encounter for screening for diseases of the blood and blood-forming organs and certain disorders involving the immune mechanism; Z79.899 Other long term (current) drug therapy; M85.80 Other specified disorders of bone density and structure, unspecified site
CPT/HCPCS: 36415; 80053; 80061; 82306; 82784; 84443; 85025

== ENCOUNTER 2025-06-30 09:50 | Day surgery (SDC) | payer MEDICARE, BC, SELFPAY ==
--- NOTE | 2025-06-16 16:53 | PAT.ANE_ITS ---
Pre-Assessment Diagnosis/Proposed Procedure Planned Operative Procedure(s): RIGHT CHEST MEDPORT REMOVAL Anesthesia History Anesthesia History - manager utilization review: Anesthesia History - manager utilization review Hx Hospitalization No 06/16/25 14:05 Any Problems With Anesthesia No 06/16/25 14:05 Cholinesterase deficiency No 06/16/25 14:05 You/Your Family Experience No 06/16/25 14:05 fever (hyperthermia) with Relationship Recent Exposure to Contagious No 06/27/22 10:35 Disease Does patient have nerve No 06/16/25 14:05 stimulator Patient instructed to have device shut off --Does patient have Pacemaker or ICD? When Was Last Pacemaker Check QUESTION #4 FULL TEXT: You/Your Family Experience fever (hyperthermia) with Anesthesia Last Oral Intake Last Oral intake: Last Oral Intake NPO since Meds taken in AM with sips of water? Meds patient instructed to take am of surgery PONV PONV - manager utilization review: PONV - manager utilization review Female Yes 06/16/25 14:05 HX of Motion Sickness No 06/16/25 14:05 HX of N/V After Surgery No 06/16/25 14:05 Non-Smoker Yes 06/16/25 14:05 Duration of Surgery greater No 06/16/25 14:05 than 60 minutes Number of Risk Factors 2 06/16/25 14:05 PONV Score Moderate Risk 06/16/25 14:05 Height & Weight Height & Weight: Anesthesia: Height & Weight Height 5 ft 9 in 12/11/24 14:09 Respiratory Assessment Respiratory Assessment - manager utilization review: Respiratory Tract Infection Hx - manager utilization review Hx Respiratory Tract Infection No 06/16/25 14:05 STOP Sleep Apnea STOP Sleep Apnea - manager utilization review: STOP Sleep Apnea - manager utilization review Hx Hypertension Yes: CONTROLLED WITH MEDS 06/16/25 14:05 Hx Sleep Apnea No 06/16/25 14:05 CPAP BIPAP Do you snore loudly (louder No 06/16/25 14:05 than talking or can be heard Do you often feel tired/ No 06/16/25 14:05 fatigued/ sleepy during daytime? Has anyone observed you stop No 06/16/25 14:05 breathing during sleep? STOP Results Negative 06/16/25 14:05 QUESTION #5 FULL TEXT : Do you snore loudly (louder than talking or can be heard through closed doors)? 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 Specify any problems Hx of Preganancy in last 3 No 06/16/25 14:05 Months Nurse Filling Out Transfusion [id number] 06/16/25 14:05 & Questions: Date: 06/16/25 06/16/25 14:05 Time: 14:07 06/16/25 14:05 Patient unable to answer at this time (ie. confused, unrespo /Reproduction History /Reproductive History - manager utilization review: /Reproductive Hx- manager utilization review Hx Now Gestational Age (in weeks): EDC: Hx Hx Para Hx Section SAB PFSH Medical History (Updated 06/16/25 @ 14:12 by Roberth Watson) Cardiology follow-up encounter History of stress test Asthma-COPD overlap syndrome Chronic cough Bronchitis Left knee pain Wears glasses Cancer Depression Anxiety Open wound History of steroid therapy Thyroid disease History of renal disease High cholesterol Pulmonary embolism Stroke/cerebrovascular accident Former smoker History of edema History of echocardiogram History of Mohs micrographic surgery for skin cancer History of DVT (deep vein thrombosis) History of TIA (transient ischemic attack) Traumatic open wound of right lower leg with delayed healing Health care maintenance Flu vaccine need Multiple sclerosis Hyperlipemia Hypertension Hypothyroidism Skin cancer Anemia Seasonal allergies Home Medications ?Medication ?Instructions ?Recorded ?Last Taken ?Type ocrelizumab 30 mg/mL intravenous 30 mg .Route [id number] MS 04/17/22 Unknown History solution (Ocrevus) calcium 600 mg capsule 600 mg PO BID 06/20/22 Unkno wn History cholecalciferol (vitamin D3) 25 25 mcg PO MOTUWETHFRSA 06/20/22 Unknown History mcg (1,000 unit) capsule (Vitamin D3) Norap [place] #1 ea 08/13/24 Unknown Rx amlodipine 5 mg tablet 5 mg PO QDAY #90 tabs Unknown Rx escitalopram oxalate 20 mg tablet 20 mg PO DAILY #90 t abs 12/11/24 Unknown Rx levothyroxine 100 mcg tablet 100 mcg PO DAILY #90 TABL ETS 12/23/24 Unknown Rx fluticasone fur. 100 mcg-umeclid 1 inh inhalation Q24H #60 ea 04/03/25 Unknown Rx 62.5 mcg-vilant 25 mcg inhalat.powder (Trelegy Ellipta) lisinopril 40 mg tablet 40 mg PO DAILY #90 tabs 04/25 02/15 Unknown Rx atorvastatin 40 mg tablet 40 mg PO QHS #90 tabs Unknown Rx Allergy/AdvReac Type Severity Reaction Status Date / Time No Known Allergies Allergy Verified 06/16/25 14:03 Family History Father Arthritis Heart disease Mother Hypertension Hyperlipemia Kidney disease Surgical History History of appendectomy History of hysterectomy Social History Smoking Status: Former smoker quit date: 09/24/15 Tobacco: How many years used: 20 alcohol intake: current alcohol intake frequency: holidays/special occasions only substance use type: does not use what type of physical activity do you participate in: none Audit: Pertinent Findings Pertinent Findings EKG Perinent findings: 02/09/2022. Normal sinus rhythm. LVH with repolarization abnormality. Recommendation Anesthesia Recommendation Anesthesia recommendation: OPTIMIZED for anesthesia
[2025-06-30] VITALS (8 sets, daily range): BP systolic 127–142; BP diastolic 66–77; PULSE 58–86; RESP 16–20; TEMP 36.1–36.4; O2SAT 97–100; BMI 41.0
[2025-06-30] MEDS: Lactated Ringers 1,000 ML 15 ML IV (10:18)
--- NOTE | 2025-06-30 10:43 | PRE.ANES_ITS ---
ASA Classification* ASA Classification ASA Classification: 3 Assessment & Plan Anesthesia* Anesthesia Assessment Anesthesia Assessment: Discussed sedation and/or anesthesia options, risks, benefits, and alternatives with patient/parents/legal guardian/POA. Questions invited. The patient/parents/legal guardian/POA seems to understand and agrees to proceed with anesthesia plan. Reviewed the physical assessment, medical history, allergy history and patient home medications list prior to surgery/procedure/anesthetic and documented any changes. Performed airway and anesthesia risk assessments. Anesthesia Type Anesthesia Type: MAC Anesthesia Focused Assessment* Temperature: 97 F Pulse Rate: 84 Blood Pressure: 129/69 Respiratory Rate: 16 Pulse Ox: 97 Airway Assessment Mouth opens: >3 cm Mallampati Score: II Labs Anesthesia Preop lab: CBC WBC, (4.4-11.0) 7.3 K/mm3 05/29/25, 10:35 RBC, (4.2-5.4) 4.37 M/mm3 05/29/25, 10:35 Hgb, (12.0-15.0) 12.1 g/dL 05/29/25, 10:35 Hct, (37-47) 39.8 % 05/29/25, 10:35 Plt Count, (150-450) 238 K/mm3 05/29/25, 10:35 CHEMISTRY Potassium, (3.3-5.1) 4.6 mmol/L 05/29/25, 10:35 Sodium, (133-145) 142 mmol/L 05/29/25, 10:35 BUN, (4-19) 22 mg/dL H 05/29/25, 10:35 Creatinine, (0.70-1.20) 1.17 mg/dL 05/29/25, 10:35 Glucose, (70-99) 97 mg/dL 05/29/25, 10:35 TSH, (0.300-4.200) 5.030 uIU/mL H 05/29/25, 10:35 COAG Pre-Assessment Diagnosis/Proposed Procedure Planned Operative Procedure(s): RIGHT CHEST MEDPORT REMOVAL Anesthesia History 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 When Was Last Pacemaker Check QUESTION #4 FULL TEXT: You/Your Family Experience fever (hyperthermia) with Anesthesia Last Oral Intake Last Oral intake: Last Oral Intake NPO since 20:00 06/30/25 10:11 Meds taken in AM with sips of water? Meds patient instructed to take am of surgery PONV PONV - aviation safety officer: PONV - aviation safety officer Female Yes 06/16/25 14:05 HX of Motion Sickness No 06/16/25 14:05 HX of N/V After Surgery No 06/16/25 14:05 Non-Smoker Yes 06/16/25 14:05 Duration of Surgery greater No 06/16/25 14:05 than 60 minutes Number of Risk Factors 2 06/16/25 14:05 PONV Score Moderate Risk 06/16/25 14:05 Height & Weight Height & Weight: Anesthesia: Height & Weight Height 5 ft 9 in 06/30/25 10:11 Weight: 126.099 kg 06/30/25 10:11 Body Mass Index (BMI) 41.0 06/30/25 10:11 Respiratory Assessment Respiratory Assessment - aviation safety officer: Respiratory Tract Infection Hx - aviation safety officer Hx Respiratory Tract Infection No 06/16/25 14:05 STOP Sleep Apnea STOP Sleep Apnea - aviation safety officer: STOP Sleep Apnea - aviation safety officer Hx Hypertension Yes: CONTROLLED WITH MEDS 06/16/25 14:05 Hx Sleep Apnea No 06/16/25 14:05 CPAP BIPAP Do you snore loudly (louder No 06/16/25 14:05 than talking or can be heard Do you often feel tired/ No 06/16/25 14:05 fatigued/ sleepy during daytime? Has anyone observed you stop No 06/16/25 14:05 breathing during sleep? STOP Results Negative 06/16/25 14:05 QUESTION #5 FULL TEXT : Do you snore loudly (louder than talking or can be heard through closed doors)? 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 Specify any problems Hx of Preganancy in last 3 No 06/16/25 14:05 Months Nurse Filling Out Transfusion [email or web address] 06/16/25 14:05 & Questions: Date: 06/16/25 06/16/25 14:05 Time: 14:07 06/16/25 14:05 Patient unable to answer at this time (ie. confused, unrespo /Reproduction History /Reproductive History - aviation safety officer: /Reproductive Hx- aviation safety officer Hx Now Gestational Age (in weeks): EDC: Hx Hx Para Hx Section SAB Active Medications Active Medications: Current Medications Generic Name Dose Route Start Last Admin Trade Name Freq PRN Reason Stop Dose Admin Cefazolin Sodium 3 gm/ Sodium 115 mls @ 200 mls/hr 06/30/25 14:00 Chloride IV 06/30/25 14:34 INTRAOP ONE Lactated Ringer's 1,000 mls @ 15 mls/hr 06/30/25 10:15 06/30/25 10:18 IV 15 mls/hr .Q48H ALBERTINA Administration PFSH Medical History Cardiology follow-up encounter History of stress test Asthma-COPD overlap syndrome Chronic cough Bronchitis Left knee pain Wears glasses Cancer Depression Anxiety Open wound History of steroid therapy Thyroid disease History of renal disease High cholesterol Pulmonary embolism Stroke/cerebrovascular accident Former smoker History of edema History of echocardiogram History of Mohs micrographic surgery for skin cancer History of DVT (deep vein thrombosis) History of TIA (transient ischemic attack) Traumatic open wound of right lower leg with delayed healing Health care maintenance Flu vaccine need Multiple sclerosis Hyperlipemia Hypertension Hypothyroidism Skin cancer Anemia Seasonal allergies Home Medications ?Medication ?Instructions ?Recorded ?Last Taken ?Type ocrelizumab 30 mg/mL intravenous 30 mg .Route [id number] MS 04/17/22 Unknown History solution (Ocrevus) calcium 600 mg capsule 600 mg PO BID 06/20/22 Unkno wn History cholecalciferol (vitamin D3) 25 25 mcg PO MOTUWETHFRSA 06/20/22 Unknown History mcg (1,000 unit) capsule (Vitamin D3) Handicap Placard #1 ea 08/13/24 Unknown Rx amlodipine 5 mg tablet 5 mg PO QDAY #90 tabs 06/29/25 Rx escitalopram oxalate 20 mg tablet 20 mg PO DAILY #90 t abs 12/11/24 Unknown Rx levothyroxine 100 mcg tablet 100 mcg PO DAILY #90 TABL ETS 12/23/24 Unknown Rx fluticasone fur. 100 mcg-umeclid 1 inh inhalation Q24H #60 ea 04/03/25 Unknown Rx 62.5 mcg-vilant 25 mcg inhalat.powder (Trelegy Ellipta) lisinopril 40 mg tablet 40 mg PO DAILY #90 tabs 04/2506/29/25 Rx atorvastatin 40 mg tablet 40 mg PO QHS #90 tabs Unknown Rx Allergy/AdvReac Type Severity Reaction Status Date / Time No Known Allergies Allergy Verified 06/30/25 10:09 Family History Father Arthritis Heart disease Mother Hypertension Hyperlipemia Kidney disease Surgical History History of appendectomy History of hysterectomy Social History Smoking Status: Former smoker quit date: 09/24/15 Tobacco: How many years used: 20 alcohol intake: current alcohol intake frequency: holidays/special occasions only substance use type: does not use what type of physical activity do you participate in: none Review of Systems (Anesthesia) ROS Narrative System reviewed and no additional complaints, except as documented.
--- NOTE | 2025-06-30 10:50 | PCM.HP.BLA ---
History and Physical Allergies No Known Allergies Allergy (Verified 06/10/25 14:34) Medications ?Medication ?Instructions ?Recorded ?Confirmed ?Type ocrelizumab 30 mg/mL intravenous 30 mg .Route [id number] MS 04/17/22 06/10/25 History solution (Ocrevus) calcium 600 mg capsule 600 mg PO BID 06/20/22 06/10/25 History cholecalciferol (vitamin D3) 25 25 mcg PO MOTUWETHFRSA 06/20/22 06/10/25 History mcg (1,000 unit) capsule (Vitamin D3) Handicap Placard #1 ea 08/13/24 06/10/25 Rx atorvastatin 40 mg tablet 40 mg PO QHS #90 tabs 10/01/24 06/10/25 Rx amlodipine 5 mg tablet 5 mg PO QDAY #90 tabs 10/27/24 06/10/25 Rx escitalopram oxalate 20 mg tablet 20 mg PO DAILY #90 tabs 12/11/24 06/10/25 Rx levothyroxine 100 mcg tablet 100 mcg PO DAILY #90 TABLETS 12/23/24 06/10/25 Rx fluticasone fur. 100 mcg-umeclid 1 inh inhalation Q24H #60 ea 04/03/25 06/10/25 Rx 62.5 mcg-vilant 25 mcg inhalat.powder (Trelegy Ellipta) lisinopril 40 mg tablet 40 mg PO DAILY #90 tabs 05/18/25 06/10/25 Rx Is last menstrual period known: No Post menopausal: Yes Patient : No Have you fallen in the past year?: No PFSH Medical History Asthma-COPD overlap syndrome Chronic cough Bronchitis Left knee pain Wears glasses Cancer Depression Anxiety Open wound History of steroid therapy Thyroid disease History of renal disease High cholesterol Pulmonary embolism Stroke/cerebrovascular accident Former smoker History of edema History of echocardiogram History of Mohs micrographic surgery for skin cancer History of DVT (deep vein thrombosis) History of TIA (transient ischemic attack) Traumatic open wound of right lower leg with delayed healing Health care maintenance Flu vaccine need Multiple sclerosis Hyperlipemia Hypertension Hypothyroidism Skin cancer Anemia Seasonal allergies Surgical History History of appendectomy History of hysterectomy Family History Father Arthritis Heart disease Mother Hypertension Hyperlipemia Kidney disease Social History Smoking Status: Former smoker quit date: 09/24/15 Tobacco: How many years used: 20 alcohol intake: current alcohol intake frequency: holidays/special occasions only substance use type: does not use what type of physical activity do you participate in: none HPI HPI HPI: FERN GILLIS, is a 64 F who presents to the office today for consultation regarding med port removal. She had this med port placed in 2006 when she required it to receive transfusions for an MS medication; she is now on a medication which requires transfusion only every 6 months and no longer requires the med port so wishes for it to be removed. She reports it has not been accessed in a couple years. She reports no other surgeries or radiation to the area, no history of infection with this. ROS General General: Yes fatigue; No weight change, appetite, colon cancer, breast cancer or weakness HEENT HEENT: No difficulty swallowing, eye injury, eye surgery, swollen glands or hoarseness Endo Endocrine: Yes thyroid disease; No diabetes mellitus, thyroid cancer, Hair loss, heat intolerance or cold intolerance Skin Skin: No rash or changing moles Musc Musculoskeletal: No back problems, arthritis, rheumatoid arthritis, gout or joint pain Cardio Cardiovascular: Yes high blood pressure; No murmur, pacemaker, heart disease, atrial fibrillation, heart attack, heart stent, palpitations, shortness of breath with exertion or chest pain Psych Psychiatric: No depression, anxiety or hearing voices Resp Respiratory: No shortness of breath, No sleep apnea, Yes cough, Yes COPD, No asthma, No emphysema and No wheezing Gastro Gastrointestinal: No abdominal pain, No nausea or vomiting, No diarrhea, No constipation, No blood in stool, No acid reflux, No hemorrhoids, No ulcers, No gallbladder problem and No black,tarry stools Paresh Hematologic: No blood thinners, No blood disorders, No bleeding, No anemia and Yes blood clots Neuro Neurologic: No system reviewed and no additional complaints, except as documented, No as per HPI, No abnormal gait, No abnormal hearing, No abnormal movements, No abnormal speech, No behavioral changes, No burning sensations, No confusion, No convulsions, No disequilibrium, No dizziness, No localized weakness, No frequent falls, No headache(s), No lack of coordination, No loss of vision, No memory loss, Yes numbness, No other visual disturbances, No radicular pain, No restless legs, No sensory deficit, No syncope, Yes tingling, No tremor(s), No weakness and No other Exam Const General: cooperative, healthy appearing, comfortable and no acute distress Nutritional Appearance: well nourished Orientation: alert, awake and oriented x3 HENMT Head: normocephalic and atraumatic Ears: hearing grossly normal bilaterally Nose: external nose normal Eyes General: appearance normal, both eyes and all related structures EOM: EOM intact bilaterally Neck Neck: normal visual inspection, full ROM, no lymphadenopathy and trachea midline Resp Effort & Inspection: normal respiratory effort, able to speak in complete sentences, symmetric chest movement, no audible wheezes, not labored, no stridor and no use of accessory muscles Cardio Rate: regular rate Rhythm: regular rhythm Bruits: no carotid bruits Pulses: brachial pulses present and radial pulses present Skin General: no rashes or lesions noted and no erythema Neuro Cranial Nerves: CN's II-XI intact bilaterally and EOM intact bilaterally Speech: speech normal Extremities Lower Extremity Edema: None: Bilateral Psych Appearance: grossly normal and well kempt Mental Status: mental status grossly normal Mood: congruent mood Speech and Movement: speech and movement normal Thought Content: normal Judgment: judgment good Coding Level of Care Code Off vis,est,level 2 Diagnoses Central venous catheter in place Z95.828 Assessment and Plan Assessment and Plan (1) Central venous catheter in place: Status: Acute Plan: remove medport
[2025-06-30] MEDS: Midazolam 2 MG/2 ML Syringe IV (11:12)
[2025-06-30] MEDS: Lactated Ringers 1,000 ML 1000 ML IV (11:12)
[2025-06-30] MEDS: Cefazolin 1 GM/5 ML Vial 3 GM IV (11:15)
[2025-06-30] MEDS: Lidocaine 1% (5 ml sdv) 5 ML Vial IV (11:17)
[2025-06-30] MEDS: Lidocaine 1% (30 ml sdv) 30 ML Vial (11:34)
--- NOTE | 2025-06-30 11:58 | PCM.POST.ANE ---
Anesthesia: Postop Eval I Current Vital Signs Temperature: 97.0 F Pulse Rate: 86 Blood Pressure: 142/68 Respiratory Rate: 20 Pulse Ox: 97 Oxygen Delivery Method: Room Air Assessment Airway patent: Yes Spontaneous unlabored respirations: Yes Mental status: Awake and Calm nausea: No Vomiting: No Anesthesia Complication: No Fluid Hydration Crystalloid volume administer (ml): 50 Total IV fluid infused: 50 Progress Note Anesthesia document: Postop Eval 1 completed: Yes
--- NOTE | 2025-06-30 12:04 | DCINST_ITS ---
Discharge Instructions Activity May shower in (days): 2 Lifting Restrictions: do not lift > 20 lbs for 14 days Additional Activity Instructions:: do not submerge incision for 14 days Dressing / Incision Call your doctor if your incision/area has: Sudden Increased Bleeding, Increased Pain/ Swelling, Increased Redness and Foul Smelling Discharge Remove Dressing in: 2 days Cleanse incision/area with: Soap & Water Follow Up Care Test Results: Test results from this visit will be discussed in further detail at your follow- up appointment, if applicable. Discharge Plan Admission Attending Provider: Rufino Klein Primary Care Provider: Xiomy Duran Instructions Print Language: Ukrainian Discharge Orders/Prescriptions Prescriptions: New oxycodone 5 mg tablet 5 mg PO Q8H PRN (Reason: pain) 1 Days Qty: 3 0RF Continued Ocrevus 30 mg/mL solution 30 mg .Route [id number] Rx Instructions: Infusion 6 months. (DME) Handicap Placard See Rx Instructions .ROUTE .MEDSUPPLY Qty: 1 0RF Rx Instructions: As directed, length of time 3 years escitalopram oxalate 20 mg tablet 20 mg PO DAILY Qty: 90 2RF calcium 600 mg Capsule 600 mg PO BID cholecalciferol (vitamin D3) [Vitamin D3] 25 mcg (1,000 unit) Capsule 25 mcg PO MOTUWETHFRSA amlodipine 5 mg tablet 5 mg PO QDAY Qty: 90 1RF levothyroxine 100 mcg tablet 100 mcg PO DAILY Qty: 90 1RF Trelegy Ellipta 100-62.5-25 mcg blister with device 1 inh inhalation Q24H Qty: 60 2RF lisinopril 40 mg tablet 40 mg PO DAILY Qty: 90 1RF atorvastatin 40 mg tablet 40 mg PO QHS Qty: 90 2RF Referrals / Follow Up: Xiomy Duran MD [Primary Care Provider, Internal Medicine] Disposition Disposition (needs filled in before D/C Order can be placed): Home, Self Care
--- NOTE | 2025-06-30 12:06 | POSTOPAN2_ITS ---
Anesthesia Postop Eval I Sum Postop Eval Completion status Anesthesia document: Postop Eval 1 completed: Yes Anesthesia Postop Eval I Summary Anesthesia Postop Eval I Summary: Anesthesia Postop Eval I: Assessment Summary Airway patent Yes 06/30/25 11:59 COMMUNITY OUTREACH [email or web address].[email or web address] Spontaneous unlabored Yes 06/30/25 11:59 COMMUNITY OUTREACH SPECIALIST.[email or web address] respirations Mental status Awake,Calm 06/30/25 11:59 COMMUNITY OUTREACH SPECIALIST.[email or web address] nausea No 06/30/25 11:59 COMMUNITY OUTREACH SPECIALIST.[email or web address] Vomiting No 06/30/25 11:59 COMMUNITY OUTREACH SPECIALIST.[email or web address] Anesthesia Postop Eval I: Fluid Summary Crystalloid volume administer 50 06/30/25 11:59 COMMUNITY OUTREACH SPECIALIST.[email or web address] (ml) Colloids volume administered ( ml) Blood Product volume administered (ml) Total IV fluid infused 50 06/30/25 11:59 COMMUNITY OUTREACH SPECIALIST.[email or web address] Anesthesia Postop Eval I: Summary Notes Anesthesia Complication No 06/30/25 11:59 COMMUNITY OUTREACH SPECIALIST.[email or web address] Anesthesia Complication Comment: Post-operative progress note Anesthesia: Postop Eval II Evaluation Mental status: Awake Pain Level: 0 nausea: No Vomiting: No
--- NOTE | 2025-06-30 12:06 | PCM.POSTANE2 ---
Anesthesia Postop Eval I Sum Postop Eval Completion status Anesthesia document: Postop Eval 1 completed: Yes Anesthesia Postop Eval I Summary Anesthesia Postop Eval I Summary: Anesthesia Postop Eval I: Assessment Summary Airway patent Yes 06/30/25 11:59 CLIENT [email or web address] Spontaneous unlabored Yes 06/30/25 11:59 CLIENT [email or web address] respirations Mental status Awake,Calm 06/30/25 11:59 CLIENT [email or web address] nausea No 06/30/25 11:59 CLIENT [email or web address] Vomiting No 06/30/25 11:59 CLIENT [email or web address] Anesthesia Postop Eval I: Fluid Summary Crystalloid volume administer 50 06/30/25 11:59 CLIENT [email or web address] (ml) Colloids volume administered ( ml) Blood Product volume administered (ml) Total IV fluid infused 50 06/30/25 11:59 CLIENT [email or web address] Anesthesia Postop Eval I: Summary Notes Anesthesia Complication No 06/30/25 11:59 CLIENT [email or web address] Anesthesia Complication Comment: Post-operative progress note Anesthesia: Postop Eval II Evaluation Mental status: Awake Pain Level: 0 nausea: No Vomiting: No
--- NOTE | 2025-06-30 13:34 | OP.PCM_ITS ---
Operative Report (Standard) Operative Information Date of Procedure: 06/30/25 Pre-Operative Diagnosis: Previously placed tunneled central catheter with subcutaneous port, no longer in use Post-Operative Diagnosis: Same Surgery/Procedure Performed: Removal right chest wall tunneled catheter and subcutaneous port resident services supervisor: Yes Funeral Service Apprentice: Regina Min Tasks completed by trade sales assistant: Opening, Closing, Opening & closing and Retracting Type of Anesthesia: Local MAC, Local and MAC RN Documented Start/Stop Times: Operation Date: 06/30/25 11:30 Case Time Into Pre-Op 06/30/25 10:00 Out of Pre-Op 06/30/25 11:08 Anesthesia Start 06/30/25 11:12 Into Room 06/30/25 11:12 Procedure Start 06/30/25 11:34 Procedure End 06/30/25 11:49 Anesthesia End 06/30/25 11:53 Out of Room 06/30/25 11:53 Into Recovery 06/30/25 11:55 Into Phase II Recovery 06/30/25 12:11 Out of Recovery 06/30/25 12:11 Out of Phase II 06/30/25 12:46 Procedure Start Time: 11:35 Procedure Stop Time: 11:50 Select all DRAINS/GRAFTS/IMPLANTS that apply: None Estimated Blood Loss: 2 Specimen collected: No Description of surgery: HPI: Patient is a 64-year-old female who previously had a tunneled central venous catheter with subcutaneous port placed for frequent medication infusions. She has not used the port in several years and wishes to have it removed. She presents now for Mediport removal. Description of procedure: Upon obtaining informed consent and verification of correct patient procedure and site the patient was taken to the operating where she was positioned prepped and draped in usual sterile fashion. Timeouts performed and moderate sedation ministered by anesthesia. Transverse incision was made at the site of the prior incision and Bovie used to dissect down through subcutaneous tissue. Hand-held and subtenon retractors and put in position and further dissection carried down until the catheter was identified. Bovie dissection was then used to track this inferiorly to the mid port which was surrounded by intact capsule. The capsule was incised and the mid pole mobilized from the surrounding tissue. Once this was fully mobilized the Mediport and the tunneled catheter withdrawn with manual pressure held over the IJ access site until hemostasis was observed. The incision was then closed with 3-0 Vicryl, 4-0 Monocryl and Dermabond for the skin. The patient was then taken to the recovery room with anticipated discharge to home. Surgical Findings: Intact support and catheter removed in its entirety Complications Complications: No
== END 2025-06-30 12:46 | disposition home or self-care (01) ==
LOC: SDC 09:52 → AC 09:53
PROVIDERS: PCP Internal Medicine; Referring Provider Surgery Trauma Surgery; Visit Provider Surgery Trauma Surgery
PROC: (CPT 36590; principal; 2025-06-30 11:15)
DX: Z45.2 Encounter for adjustment and management of vascular access device (principal); J44.9 Chronic obstructive pulmonary disease, unspecified; Z87.891 Personal history of nicotine dependence; I10 Essential (primary) hypertension; E78.00 Pure hypercholesterolemia, unspecified; Z79.899 Other long term (current) drug therapy
CPT/HCPCS: 36590; 00532